=== PATIENT | male | born 1965 | race Caucasian/White ===

== ENCOUNTER 2018-03-21 13:49 | Inpatient (IN) ==
[2018-03-21 14:23] LABS: Baso # (Auto) 0.1 th/mm3 (0.0-0.2); Baso % (Auto) 0.7 % (0.0-2.0); Eos # (Auto) 0.1 th/mm3 (0.0-0.4); Eos % (Auto) 1.5 % (0.0-4.0); Hematocrit 42.4 % (39.0-51.0); Hemoglobin 14.1 gm/dL (13.0-17.0); Lymph # (Auto) 1.5 th/mm3 (1.0-4.8); Lymph % (Auto) 18.7 % (9.0-44.0); Mean Corpuscular HGB Conc 33.3 % (32.0-36.0); Mean Corpuscular Hemoglobin 29.8 pg (27.0-34.0); Mean Corpuscular Volume 89.5 fL (80.0-100.0); Mean Platelet Volume 8.4 fL (7.0-11.0); Mono # (Auto) 0.5 th/mm3 (0.0-0.9); Mono % (Auto) 6.3 % (0.0-8.0); Neut # (Auto) 5.6 th/mm3 (1.8-7.7); Neut % (Auto) 72.8 % (16.0-70.0); Platelet Count 237 th/mm3 (150-450); Red Blood Count 4.74 mil/mm3 (4.50-5.90); Red Cell Distribution Width 13.8 % (11.6-17.2); White Blood Count 7.8 th/mm3 (4.0-11.0)
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
[2018-03-21 14:32] LABS: Chloride 104 meq/L (98-107); Potassium 3.6 meq/L (3.5-5.1); Sodium 136 meq/L (136-145)
--- NOTE | 2018-03-21 14:32 | XR ---
EXAM DATE: 03/21/2018 2:29 PM EDT AGE/SEX: 52 years / Male INDICATIONS: Chest pain CLINICAL DATA: This is the patient's initial encounter. Patient reports that signs and symptoms have been present for > 1 year and indicates a pain score of 4/10. MEDICAL/SURGICAL HISTORY: . Cerebrovascular disease, Seizure. None. COMPARISON: No prior exams available for comparison. FINDINGS: A single AP erect portable view of the chest was obtained and demonstrates mild cardiomegaly. There a re no confluent infiltrates or effusions. There is no perihilar edema. The bony thorax is intact. The re are overlying electrocardiogram leads. CONCLUSION: Mild cardiomegaly with no evidence of pulmonary edema. Electronically signed by: Levar Ramírez MD 03/21/2018 2:31 PM EDT
[2018-03-21 14:35] LABS: Albumin 3.6 g/dL (3.4-5.0); Anion Gap 6 meq/L (5-15); Blood Urea Nitrogen 11 mg/dL (7-18); Calcium 8.7 mg/dL (8.5-10.1); Carbon Dioxide 26.2 meq/L (21.0-32.0); Glucose,Random 166 mg/dL (74-106)
[2018-03-21 14:38] LABS: Alanine Aminotransferase 45 U/L (12-78)
[2018-03-21 14:39] LABS: Aspartate Aminotransferase 24 U/L (15-37); Glomerular Filtration Rate 53 mL/min (>89)
[2018-03-21 14:40] LABS: Activated Partial Thrombo Time 27.9 sec (24.3-30.1); Prothrombin Time 10.6 sec (9.8-11.6); Total Protein 7.2 g/dL (6.4-8.2)
[2018-03-21 14:41] LABS: Alkaline Phosphatase 75 U/L (45-117)
[2018-03-21 14:49] LABS: D-Dimer 0.53 mg/L FEU (0.00-0.50)
[2018-03-21 14:50] LABS: Creatine Kinase 69 U/L (39-308)
--- NOTE | 2018-03-21 16:40 | CT ---
EXAM DATE: 03/21/2018 4:32 PM EDT AGE/SEX: 52 years / Male INDICATIONS: Short of breath. CLINICAL DATA: This is the patient's initial encounter. Patient reports that signs and symptoms have been present for 2 days and indicates a pain score of 0/10. MEDICAL/SURGICAL HISTORY: Hiatal hernia. Inguinal hernia. Seizure. Stroke. Carotid endarterectomy. RADIATION DOSE: 19.34 CTDI (mGy) COMPARISON: [facility], CHEST 1V SINGLE AP, 03/21/2018. . TECHNIQUE: Volumetric scanning was performed using a multi-row detector CT scanner during bolus infu jen of 65 ml Omnipaque 350 (iohexol) nonionic water-soluble contrast as a single exam dose. The domonique a was post processed with a variety of visualization algorithms including full volume maximum intensi ty projection and sliding thin slab reformation. Using automated exposure control and adjustment of t he mA and/or kV according to patient size, radiation dose was kept as low as reasonably achievable to obtain optimal diagnostic quality images. DICOM format image data is available electronically for r eview and comparison. FINDINGS: Pulmonary Arteries: No filling defects are seen in the pulmonary arteries out to the subsegmental ve ssels. The left and right pulmonary arteries are normal in diameter. Lung: There is minimal patchy opacity in the lateral right middle lobe best seen on axial image #41. There is a 7 mm groundglass nodule along the posterior lateral right fissure on image #46. There is a second smaller 5 to 6 mm nodule in the right lower lobe. There are no large areas of consolidation or larger masses.. Effusion: None. Mediastinum: No evidence of mediastinal or hilar adenopathy. Coronary artery calcifications are pres ent. Other: The axilla is unremarkable. CONCLUSION: 1. No evidence of pulmonary embolism. 2. 2 noncalcified pulmonary nodules. A six-month follow-up noncontrast chest CT is recommended accor ding to the guidelines. 3. Coronary artery calcifications. Electronically signed by: Levar Ramírez MD 03/21/2018 4:39 PM EDT
[2018-03-21] MEDS ORDERED: Heparin Drip 25,000 UNIT/250 ML BAG IV.CONT PRN (16:58)
--- NOTE | 2018-03-21 18:04 | ECG ---
Date Performed: 03/21/2018 Time Performed: 13:55:00 PTAGE: 52 years EKG: Sinus rhythm NONSPECIFIC ST & T-WAVE ABNORMALITY BORDERLINE ECG NO PREVIOUS TRACING DOCTOR: Luis Alfredo Metzger Interpretating Date/Time 03/21/2018 18:03:30
[2018-03-21 18:33] LABS: Troponin I 0.3 ng/mL (0.02-0.05)
--- NOTE | 2018-03-21 18:53 | P.HP ---
History of Present Illness Primary Care Physician: No Primary Care Physician History of Present Illness: This is a 52-year-old male with a history of CVA who presents to the hospital with chest pain. On and off for the last 2 weeks he has been having increasing shortness of breath and tightness in his neck with activities. Today at work he was asked to help unload a truck and had an acute onset of central chest pain with radiation to the neck combined with shortness of breath. He told his employer that he was unable to continue doing the work and he left work immediately to come to the ER. He has attempted to file for disability in the past for some residual left arm and leg weakness but has been denied. He is currently not having chest pain but is feeling somewhat anxious about losing his job and not being able to pay rent because of this hospitalization. Inpatient Certification: I certify that the inpatient services were ordered in accordance with Medicare regulations governing the order. This includes certification that hospital inpatient services are reasonable and necessary and in the case of services not specified as inpatient-only under 42 CFR 419.22(n), that they are appropriately provided as inpatient services in accordance to with the 2-midnight benchmark under 43 CFR 412.3(e) Estimated Total Length of Stay (Days): 3 Plans for Post Hospital Care: Home Review of Systems Constitutional: Denies anorexia, Denies body ache(s), Denies chills, Denies daytime sleepiness, Denies excessive sweating, Denies fatigue, Denies fever(s), Denies headache(s), Denies increased appetite, Denies lack of energy, Denies malaise, Denies night sweats, Denies weakness, Denies weight gain, Denies weight loss, Denies other Eyes: Denies blind spots, Denies blurry vision, Denies bulging eyes, Denies change in vision, Denies double vision, Denies discharge, Denies dry eyes, Denies floaters, Denies irritation, Denies itchy eyes, Denies loss of vision, Denies pain, Denies requires corrective lenses, Denies sensitivity to light, Denies other Ears, Nose, Mouth, and Throat: Denies abnormal hearing, Denies bleeding gums, Denies bad breath, Denies change in voice, Denies dental pain, Denies difficulty swallowing, Denies dizziness, Denies dry mouth, Denies ear discharge , Denies ear pain, Denies facial pain, Denies headache(s), Denies hearing loss, Denies hoarseness, Denies lip swelling, Denies nosebleed, Denies mouth lesions, Denies mouth pain, Denies nasal congestion, Denies nasal discharge, Denies nasal obstruction, Denies nasal trauma, Denies neck lump, Denies neck pain, Denies nose pain, Denies pain with swallowing, Denies poor balance, Denies post nasal drip, Denies ringing in the ears, Denies sinus pain, Denies sinus pressure , Denies sore throat, Denies throat swelling, Denies tongue swelling, Denies other Cardiovascular: Reports chest pain, Reports chest pain at rest, Reports chest pain with activity, Reports lightheadedness, Reports radiating jaw, neck or arm pain, Reports shortness of breath, Reports shortness of breath with activity, Reports shortness of breath when lying down, Reports shortness of breath causing sudden awakening, Denies irregular heart rhythm Respiratory: Denies change in phlegm color, Denies chest congestion, Denies cough, Denies coughing up blood, Denies excessive phlegm production, Denies pain on inspiration, Denies pain with cough, Denies shortness of breath, Denies shortness of breath with activity, Denies snoring, Denies stridor, Denies wheezing, Denies other Gastrointestinal: Denies abdominal pain, Denies belching, Denies black, tarry stools, Denies bloating, Denies bright, red blood in stools, Denies change in bowel habits, Denies constant urge to pass stool, Denies change in stools, Denies coffee ground vomit, Denies constipation, Denies cramping, Denies difficulty swallowing, Denies excessive passing of gas, Denies feeling full early, Denies heartburn, Denies incontinent of stools, Denies loose stools, Denies nausea, Denies pain with swallowing, Denies vomiting, Denies vomiting blood, Denies other Genitourinary: Denies blood in semen, Denies blood in urine, Denies decreased urination, Denies difficulty urinating, Denies difficulty with ejaculations, Denies erectile dysfunction, Denies genital lesions, Denies genital pain, Denies painful urination, Denies side pain, Denies frequent nighttime urination , Denies painful ejaculations, Denies penile discharge, Denies scrotal swelling , Denies testicle lump, Denies testicle pain, Denies urinary frequency, Denies urinary hesitancy, Denies urinary incontinence, Denies urinary urgency, Denies other Musculoskeletal: Denies abnormal walking, Denies back pain, Denies body aches, Denies decreased muscle mass, Denies deformity, Denies joint pain, Denies joint swelling, Denies limited joint movement, Denies loss of height, Denies muscle cramps, Denies muscle weakness, Denies neck pain, Denies numbness, Denies radiating pain into limb, Denies stiffness, Denies tingling, Denies other Skin/Breast: Denies acne, Denies bleeding lesions, Denies boil, Denies breast swelling, Denies breast skin changes, Denies breast pain, Denies breast lump, Denies change in breast shape, Denies change in hair, Denies change in skin color, Denies changing lesions, Denies dry skin, Denies excessive hair growth, Denies hair loss, Denies itching, Denies lesions, Denies nail changes, Denies new lesions, Denies nipple discharge, Denies non-healing lesions, Denies redness , Denies sensitivity to light, Denies rash, Denies skin pain, Denies skin ulcer , Denies sores, Denies stretch root, Denies unusual bruising, Denies wounds, Denies yellowing of the skin, Denies other Neurologic: Reports weakness, Denies abnormal hearing, Denies abnormal movements , Denies abnormal speech, Denies abnormal walking, Denies behavioral changes, Denies burning sensations, Denies confusion, Denies dizziness, Denies fainting, Denies frequent falls, Denies headache(s), Denies lack of coordination, Denies localized weakness, Denies loss of vision, Denies memory loss, Denies numbness, Denies other visual disturbances, Denies radiating pain, Denies restless legs, Denies convulsions, Denies seizure-like activity, Denies sensory deficit, Denies tingling, Denies tingling/numbness/burning sensations, Denies tremor(s), Denies unsteadiness, Denies other Psychiatric: Reports anxiety, Denies abnormal sleep pattern, Denies behavioral changes, Denies change in appetite, Denies change in sex drive, Denies confusion , Denies depression, Denies difficulty concentrating, Denies hearing things others do not hear, Denies hopelessness, Denies irritability, Denies lack of enjoyment, Denies memory loss, Denies mood swings, Denies panic attacks, Denies paranoia, Denies seeing things others do not see, Denies sensing things others do not sense, Denies tactile hallucinations, Denies thoughts of hurting/killing others, Denies thoughts of hurting/killing yourself, Denies other Endocrine: Denies cold intolerance, Denies excessive sweating, Denies flushing, Denies heat intolerance, Denies increased hunger, Denies increased thirst, Denies increased urination, Denies rapid, pounding, or irregular heartbeat, Denies other PMFSH - History History Provided By: Patient - Medical History Medical History: Medical History (Last Updated 03/21/18 @ 14:10 by Radha Preston RN) Asthma (Acute) Seizure (Acute) Inguinal hernia (Acute) Hiatal hernia (Acute) Stroke (Acute) - Surgical History Surgical History: Surgical History (Last Updated 03/21/18 @ 14:10 by Radha Preston RN) Status post carotid surgery (Acute) - Tobacco History Second Hand Smoke Exposure: Yes Tobacco Use In Past 30 Days: Yes Smoking Status: Current every day smoker Tobacco Type: Cigarettes - Alcohol History How Often Do You Have a Drink Containing Alcohol: 2 to 3 times a week - Substance Use History Substance History: No History of Abuse - Travel History Recent Travel in the [facility] Within the Last 8 Weeks: No Recent Travel Out of the Country Within the Last 8 Weeks: No - Immunization History Tetanus Immunization: <5 Years Hx Influenza Vaccine This Season: No Medications and Allergies Active Medications: Active Medications Acetaminophen (Tylenol) 650 mg PO Q4H PRN PRN Reason: HEADACHE OR TEMP > 101 F Al Hydroxide/Mg Hydroxide (Milk Of Magnesia Liq) 30 ml PO Q12H PRN PRN Reason: Mild Constipation Aspirin (Ecotrin) 325 mg PO DAILY STACY Atorvastatin Calcium (Lipitor) 10 mg PO HS STACY Bisacodyl (Dulcolax Supp) 10 mg RECTAL DAILY PRN PRN Reason: SEVERE CONSITIPATION Heparin Sodium/Dextrose (Heparin/D5w 25,000 U/250 Ml) 25,000 unit in 250 mls @ 0 mls/hr IV.CONT TITRATE PRN; Protocol PRN Reason: Per Protocol Last Admin: 03/21/18 17:41 Dose: 1,000 units/hr, 10 mls/hr Lactulose (Lactulose Liq) 30 ml PO DAILY PRN PRN Reason: SEVERE CONSITIPATION Metoprolol Tartrate (Lopressor) 12.5 mg PO BID STACY Nitroglycerin (Nitro-Bid 2% Oint) 0.5 inch TOPICAL Q6HR STACY Senna/Docusate Sodium (Sulma-Colace) 1 tab PO BID STACY Sennosides (Senokot) 17.2 mg PO Q12H PRN PRN Reason: Moderate Constipation Sodium Chloride (Ns Inj) 2 ml IV.FLUSH BID STACY Sodium Chloride (Ns Inj) 2 ml IV.FLUSH UNSCH PRN PRN Reason: FLUSH AFTER USING IV ACCESS Temazepam (Restoril) 15 mg PO HS PRN PRN Reason: INSOMNIA Allergies Allergy/AdvReac Type Severity Reaction Status Date / Time codeine AdvReac Vomiting Verified 03/15/18 20:32 Home Medications Medication Instructions Recorded Confirmed Type No Known Home Medications 03/15/18 03/15/18 History Exam Vital signs: Vital Signs 03/21/18 14:01 03/21/18 14:09 03/21/18 14:12 Temperature 97.9 F 97.9 F Pulse Rate 101 H 92 H Respiratory Rate 18 18 Blood Pressure 140/86 129/75 Pulse Oximetry 95 95 96 03/21/18 14:49 03/21/18 15:31 03/21/18 18:40 Temperature Pulse Rate 85 89 Respiratory Rate 18 18 Blood Pressure 126/87 129/95 H 149/93 H Pulse Oximetry 97 96 Intake & Output 03/20/18 03/21/18 03/21/18 18:59 06:59 18:59 Weight 89.358 kg Narrative: GENERAL: Alert and oriented 3, anxious SKIN: Warm and dry. HEAD: Atraumatic. Normocephalic. EYES: Pupils equal and round. No scleral icterus. No injection or drainage. ENT: No nasal bleeding or discharge. Mucous membranes pink and moist. NECK: Trachea midline. No JVD. CARDIOVASCULAR: Regular rate and rhythm. RESPIRATORY: No accessory muscle use. Clear to auscultation. Breath sounds equal bilaterally. GASTROINTESTINAL: Abdomen soft, non-tender, nondistended. Hepatic and splenic margins not palpable. MUSCULOSKELETAL: Extremities without clubbing, cyanosis, or edema. No obvious deformities. NEUROLOGICAL: Awake and alert. No obvious cranial nerve deficits. Mild left upper extremity lower extremity weakness. Five out of 5 muscle strength in the arms and legs. Normal speech. PSYCHIATRIC: Appropriate mood and affect; insight and judgment normal. Results - Labs CBC & Chem 7: 03/21/18 14:00 03/21/18 14:00 Labs: Laboratory Results - last 24 hr 03/21/18 03/21/18 03/21/18 14:00 14:00 14:00 CBC w Diff Auto diff final WBC 7.8 RBC 4.74 Hgb 14.1 Hct 42.4 MCV 89.5 MCH 29.8 MCHC 33.3 RDW 13.8 Plt Count 237 MPV 8.4 Neut % (Auto) 72.8 H Lymph % (Auto) 18.7 [place] % (Auto) 6.3 Eos % (Auto) 1.5 Baso % (Auto) 0.7 Neut # (Auto) 5.6 Lymph # (Auto) 1.5 [place] # (Auto) 0.5 Eos # (Auto) 0.1 Baso # (Auto) 0.1 WBC Differential . Differential Comment . PT 10.6 INR 1.0 APTT 27.9 D-Dimer Quant (PE/DVT) 0.53 H Sodium Potassium Chloride Carbon Dioxide Anion Gap BUN Creatinine Estimated GFR Random Glucose Calcium Total Bilirubin AST ALT Alkaline Phosphatase Total Creatine Kinase Troponin I 0.19 H Total Protein Albumin TSH 03/21/18 03/21/18 03/21/18 14:00 17:50 17:50 CBC w Diff WBC RBC Hgb Hct MCV MCH MCHC RDW Plt Count MPV Neut % (Auto) Lymph % (Auto) [place] % (Auto) Eos % (Auto) Baso % (Auto) Neut # (Auto) Lymph # (Auto) [place] # (Auto) Eos # (Auto) Baso # (Auto) WBC Differential Differential Comment PT INR APTT D-Dimer Quant (PE/DVT) Sodium 136 Potassium 3.6 Chloride 104 Carbon Dioxide 26.2 Anion Gap 6 BUN 11 Creatinine 1.40 H Estimated GFR 53 L Random Glucose 166 H Calcium 8.7 Total Bilirubin 0.5 AST 24 ALT 45 Alkaline Phosphatase 75 Total Creatine Kinase 69 67 Troponin I 0.30 H Total Protein 7.2 Albumin 3.6 TSH 3.930 H - Imaging Impressions Chest X-Ray 03/21/18 14:03 CONCLUSION: Mild cardiomegaly with no evidence of pulmonary edema. Chest CTA 03/21/18 15:17 CONCLUSION: 1. No evidence of pulmonary embolism. 2. 2 noncalcified pulmonary nodules. A six-month follow-up noncontrast chest CT is recommended according to the guidelines. 3. Coronary artery calcifications. Caprini VTE Risk Assessment Caprini VTE Risk Assessment: Moderate/High Risk (score >= 2) Caprini Risk Assessment Model: Point Value = 1 Point Value = 2 Point Value = 3 Point Value = 5 Age 41-60 Minor surgery BMI > 25 kg/m2 Swollen legs Varicose veins or History of unexplained or recurrent spontaneous Oral contraceptives or hormone replacement Sepsis (< 1 month) Serious lung disease, including pneumonia (< 1 month) Abnormal pulmonary function Acute myocardial infarction Congestive heart failure (< 1 month) History of inflammatory bowel disease Medical patient at bed rest Age 61-74 Arthroscopic surgery Major open surgery (> 45 min) Laparoscopic surgery (> 45 min) Malignancy Confined to bed (> 72 hours) Immobilizing plaster cast Central venous access Age >= 75 History of VTE Family history of VTE Factor V Leiden Prothrombin [id number] Lupus anticoagulant Anticardiolipin antibodies Elevated serum homocysteine Heparin-induced thrombocytopenia Other congenital or acquired thrombophilia Stroke (< 1 month) Elective arthroplasty Hip, pelvis, or leg fracture Acute spinal cord injury (< 1 month) Prophylaxis Regimen: Total Risk Factor Score Risk Level Prophylaxis Regimen 0-1 Low Early ambulation 2 Moderate Order ONE of the following: *Sequential Compression Device (SCD) *Heparin 5000 units SQ BID 3-4 Higher Order ONE of the following medications: *Heparin 5000 units SQ TID *Enoxaparin/Lovenox 40 mg SQ daily (WT < 150 kg, CrCl > 30 mL/min) *Enoxaparin/Lovenox 30 mg SQ daily (WT < 150 kg, CrCl > 10-29 mL/min) *Enoxaparin/Lovenox 30 mg SQ BID (WT < 150 kg, CrCl > 30 mL/min) AND/OR *Sequential Compression Device (SCD) 5 or more Highest Order ONE of the following medications: *Heparin 5000 units SQ TID (Preferred with Epidurals) *Enoxaparin/Lovenox 40 mg SQ daily (WT < 150 kg, CrCl > 30 mL/min) *Enoxaparin/Lovenox 30 mg SQ daily (WT < 150 kg, CrCl > 10-29 mL/min) *Enoxaparin/Lovenox 30 mg SQ BID (WT < 150 kg, CrCl > 30 mL/min) AND *Sequential Compression Device (SCD) Assessment and Plan - Plan NSTEMI Patient presents with central chest pain radiation to left neck combined with 2 weeks of worsening dyspnea with activity Troponins bumped to 0.30 ER physician discussed case with Dr. Thomas who recommended transferred to [facility] for likely cardiac catheterization Patient will be n.p.o. after midnight Continue with heparin drip Continue with oxygen as needed Continue with as needed nitroglycerin Follow on telemetry Appreciate cardiology consult h/o CVA Left upper and lower extremity weakness, mild in nature Weakness is exacerbated by possible ischemic heart disease h/o seizures Seizure precautions DVT prophylaxis Heparin drip
[2018-03-21] MEDS: ALPRAZolam 0.25 MG Tablet PO PRN (19:55)
[2018-03-21 19:57] LABS: Amphetamine Screen,Urine Neg (Neg)
[2018-03-21 19:59] LABS: Barbiturate Screen,Urine Neg (Neg)
[2018-03-21] MEDS ORDERED: Bisacodyl 10 MG Supp RECTAL PRN (20:00)
[2018-03-21 20:04] LABS: Cannabinoid Screen,Urine Neg (Neg); Cocaine Screen,Urine Pos (Neg)
[2018-03-21 20:09] LABS: Opiate Screen,Urine Neg (Neg)
[2018-03-21] MEDS: Metoprolol Tartrate 25 MG Tablet PO SCH (21:32)
[2018-03-21] MEDS: Senna/Docusate Sodium 8.6/50 MG Tablet PO SCH (21:32)
[2018-03-22 00:24] LABS: Troponin I 0.44 ng/mL (0.02-0.05)
[2018-03-22] MEDS: Temazepam 15 MG Capsule PO PRN ×2 (01:12→23:10)
[2018-03-22] MEDS ORDERED: Heparin 10,000 UNITS/10 ML Vial (for IV use) IV.PUSH PRN (02:00)
[2018-03-22] MEDS: Heparin 10,000 UNITS/10 ML Vial (for IV use) IV.PUSH PRN ×2 (02:15→11:41)
[2018-03-22 03:30] LABS: Chol/HDL Ratio 4.49 Ratio; HDL Cholesterol 38.5 mg/dL (40.0-60.0); Troponin I 0.39 ng/mL (0.02-0.05)
[2018-03-22] MEDS: Acetaminophen 325 MG Tablet PO PRN ×3 (06:36→16:12)
[2018-03-22] MEDS: ALPRAZolam 0.25 MG Tablet PO PRN ×3 (06:38→16:08)
[2018-03-22] MEDS ORDERED: Morphine Inj 4 MG/ML Vial IV.PUSH ONE (06:56)
[2018-03-22] MEDS: Senna/Docusate Sodium 8.6/50 MG Tablet PO SCH ×2 (08:41→20:47)
[2018-03-22] MEDS: Metoprolol Tartrate 25 MG Tablet PO SCH ×3 (08:58→20:55)
--- NOTE | 2018-03-22 09:41 | P.PNIM ---
Subjective Interval history: Patient sleeping this morning. States that he has not had a good night sleep. States that he is not having chest pains. Physical Exam Vital signs: Vital Signs 03/21/18 14:01 03/21/18 14:09 03/21/18 14:12 Temperature 97.9 F 97.9 F Pulse Rate 101 H 92 H Respiratory Rate 18 18 Blood Pressure 140/86 129/75 Pulse Oximetry 95 95 96 03/21/18 14:49 03/21/18 15:31 03/21/18 18:40 Temperature Pulse Rate 85 89 Respiratory Rate 18 18 Blood Pressure 126/87 129/95 H 149/93 H Pulse Oximetry 97 96 03/21/18 20:50 03/22/18 00:00 03/22/18 01:00 Temperature 97.9 F Pulse Rate 90 93 H 87 Respiratory Rate 18 16 Blood Pressure 139/83 126/83 Pulse Oximetry 99 95 03/22/18 02:00 03/22/18 03:00 03/22/18 03:15 Temperature 98 F Pulse Rate 79 83 79 Respiratory Rate 18 Blood Pressure 118/73 Pulse Oximetry 95 03/22/18 04:00 03/22/18 05:00 03/22/18 06:00 Temperature Pulse Rate 88 98 H 99 H Respiratory Rate Blood Pressure Pulse Oximetry 03/22/18 07:00 03/22/18 07:08 03/22/18 08:00 Temperature 97.4 F L Pulse Rate 96 H 96 H Respiratory Rate 18 18 Blood Pressure 113/73 Pulse Oximetry 94 L 03/22/18 08:55 03/22/18 09:00 Temperature Pulse Rate 98 H Respiratory Rate Blood Pressure Pulse Oximetry 96 Intake & Output 03/21/18 03/22/18 03/22/18 18:59 06:59 18:59 Intake Total 80 / 80 Output Total 650 / 650 Balance -570 / -570 Weight 89.358 kg 89.5 kg Intake: Oral 80 / 80 Output: Urine 500 / 500 Stool 150 / 150 Other: Date of Last Bowel Movement 03/22/18 Weight On Admission 89.358 kg Narrative: GENERAL: This is a well-nourished, well-developed patient, in no apparent distress. CARDIOVASCULAR: Regular rate and rhythm without murmurs, gallops, or rubs. RESPIRATORY: Clear to auscultation. Breath sounds equal bilaterally. No wheezes , rales, or rhonchi. GASTROINTESTINAL: Abdomen soft, non-tender, nondistended. Normal active bowel sounds MUSCULOSKELETAL: Extremities without clubbing, cyanosis, or edema. NEURO: Alert & Oriented x4 to person, place, time, situation. Moves all ext x4 Results - Labs CBC & Chem 7: 03/21/18 14:00 03/21/18 14:00 Laboratory Results - last 24 hr 03/21/18 03/21/18 03/21/18 14:00 14:00 14:00 CBC w Diff Auto diff final WBC 7.8 RBC 4.74 Hgb 14.1 Hct 42.4 MCV 89.5 MCH 29.8 MCHC 33.3 RDW 13.8 Plt Count 237 MPV 8.4 Neut % (Auto) 72.8 H Lymph % (Auto) 18.7 [place] % (Auto) 6.3 Eos % (Auto) 1.5 Baso % (Auto) 0.7 Neut # (Auto) 5.6 Lymph # (Auto) 1.5 [place] # (Auto) 0.5 Eos # (Auto) 0.1 Baso # (Auto) 0.1 WBC Differential . Differential Comment . PT 10.6 INR 1.0 APTT 27.9 D-Dimer Quant (PE/DVT) 0.53 H Sodium Potassium Chloride Carbon Dioxide Anion Gap BUN Creatinine Estimated GFR Random Glucose Calcium Total Bilirubin AST ALT Alkaline Phosphatase Total Creatine Kinase Troponin I 0.19 H Total Protein Albumin Triglycerides Cholesterol LDL Cholesterol, Calc HDL Cholesterol Cholesterol/HDL Ratio TSH Urine Opiates Screen Ur Barbiturates Screen Ur Amphetamines Screen U Benzodiazepines Scrn Urine Cocaine Screen U Cannabinoids Screen 03/21/18 03/21/18 03/21/18 14:00 17:50 17:50 CBC w Diff WBC RBC Hgb Hct MCV MCH MCHC RDW Plt Count MPV Neut % (Auto) Lymph % (Auto) [place] % (Auto) Eos % (Auto) Baso % (Auto) Neut # (Auto) Lymph # (Auto) [place] # (Auto) Eos # (Auto) Baso # (Auto) WBC Differential Differential Comment PT INR APTT D-Dimer Quant (PE/DVT) Sodium 136 Potassium 3.6 Chloride 104 Carbon Dioxide 26.2 Anion Gap 6 BUN 11 Creatinine 1.40 H Estimated GFR 53 L Random Glucose 166 H Calcium 8.7 Total Bilirubin 0.5 AST 24 ALT 45 Alkaline Phosphatase 75 Total Creatine Kinase 69 67 Troponin I 0.30 H Total Protein 7.2 Albumin 3.6 Triglycerides Cholesterol LDL Cholesterol, Calc HDL Cholesterol Cholesterol/HDL Ratio TSH 3.930 H Urine Opiates Screen Ur Barbiturates Screen Ur Amphetamines Screen U Benzodiazepines Scrn Urine Cocaine Screen U Cannabinoids Screen 03/21/18 03/21/18 03/21/18 19:30 23:39 23:39 CBC w Diff WBC RBC Hgb Hct MCV MCH MCHC RDW Plt Count MPV Neut % (Auto) Lymph % (Auto) [place] % (Auto) Eos % (Auto) Baso % (Auto) Neut # (Auto) Lymph # (Auto) [place] # (Auto) Eos # (Auto) Baso # (Auto) WBC Differential Differential Comment PT INR APTT 33.8 H D D-Dimer Quant (PE/DVT) Sodium Potassium Chloride Carbon Dioxide Anion Gap BUN Creatinine Estimated GFR Random Glucose Calcium Total Bilirubin AST ALT Alkaline Phosphatase Total Creatine Kinase 58 Troponin I 0.44 H Total Protein Albumin Triglycerides Cholesterol LDL Cholesterol, Calc HDL Cholesterol Cholesterol/HDL Ratio TSH Urine Opiates Screen Neg Ur Barbiturates Screen Neg Ur Amphetamines Screen Neg U Benzodiazepines Scrn Neg Urine Cocaine Screen Pos H U Cannabinoids Screen Neg 03/22/18 03/22/18 02:27 07:12 CBC w Diff WBC RBC Hgb Hct MCV MCH MCHC RDW Plt Count MPV Neut % (Auto) Lymph % (Auto) [place] % (Auto) Eos % (Auto) Baso % (Auto) Neut # (Auto) Lymph # (Auto) [place] # (Auto) Eos # (Auto) Baso # (Auto) WBC Differential Differential Comment PT INR APTT 36.2 H D-Dimer Quant (PE/DVT) Sodium Potassium Chloride Carbon Dioxide Anion Gap BUN Creatinine Estimated GFR Random Glucose Calcium Total Bilirubin AST ALT Alkaline Phosphatase Total Creatine Kinase 59 Troponin I 0.39 H Total Protein Albumin Triglycerides 224 H Cholesterol 173 LDL Cholesterol, Calc 90 HDL Cholesterol 38.5 L Cholesterol/HDL Ratio 4.49 TSH Urine Opiates Screen Ur Barbiturates Screen Ur Amphetamines Screen U Benzodiazepines Scrn Urine Cocaine Screen U Cannabinoids Screen - Imaging Impressions Chest X-Ray 03/21/18 14:03 CONCLUSION: Mild cardiomegaly with no evidence of pulmonary edema. Chest CTA 03/21/18 15:17 CONCLUSION: 1. No evidence of pulmonary embolism. 2. 2 noncalcified pulmonary nodules. A six-month follow-up noncontrast chest CT is recommended according to the guidelines. 3. Coronary artery calcifications. Assessment and Plan - Plan 1. NSTEMI Patient presents with central chest pain radiation to left neck combined with 2 weeks of worsening dyspnea with activity ER physician discussed case with Dr. Thomas who recommended transferred to [facility] for likely cardiac catheterization Patient is currently n.p.o. Continue with heparin drip Continue with oxygen as needed Continue with as needed nitroglycerin Follow on telemetry Appreciate cardiology consult 2. Chronic kidney disease stage IIImonitor on GFR and creatinine after cardiac catheterization. IV fluid hydration. Avoid nephrotoxins. 3. h/o CVA Left upper and lower extremity weakness, mild in nature Weakness is exacerbated by possible ischemic heart disease 4. h/o seizures Seizure precautions 5. DVT prophylaxis Heparin drip
[2018-03-22] MEDS ORDERED: fentaNYL Citrate Inj 100 MCG/2 ML Ampul ONE (12:15)
[2018-03-22] MEDS ORDERED: Heparin/NS PF Inj 1,500 ML ONE (12:15)
[2018-03-22] MEDS ORDERED: Adenosine Stress Test 90 MG/30 ML Vial IV.SIG ONE (12:44)
[2018-03-22] MEDS ORDERED: Heparin 10,000 UNITS/10 ML Vial (for IV use) ONE (13:16)
--- NOTE | 2018-03-22 14:08 | CATHPROC ---
[employer] HIS Report Study Information Study Number Admission Scheduled Start Study Start [id number] Mar 21 2018 5:12PM 03/22/2018 Mar 22 2018 12:10PM [facility] Cardiac Catheterization Admit Source Facility Department Emergency department [facility] - [employer] Physician and Clinical Staff Initial MD Thomas, Hesham [employer] Manageraquiles Dimas RN, Renzo Recorder Chet Aviles,RT(R) Scrub Maura rCuz ,RT(R) Scrub Student, NETWORK INTERN/RT(R) Procedures Performed Procedure Location (Site) Vessel Name Angiogram LV AO Arch (A1) Aorta Coronary Angiograms LCA Left Coronary Coronary Angiograms RCA Right Coronary IABP Fem Art (right) Femoral Art L Heart Cath LV Gram-hand inj. LV LV Ventricle Equipment Time Director Of Field Sales Description Size Mfg Part Number Used/Scraped TRANSDUCER, TRCENXAVE [id number] 12:19 RIVAS SIMMS * Used W/STOCKCOCK *[id number] [id number] *[id number] *[id number] *[id number] BALLOON, FR8 50CC SENSATION [id number] 13:05 MAQUET FR 8 50CC Used PLUS 01U *[id number] 12:19 [employer] BLANKET,WARM AIR CCL * Used *[id number] 12:19 [employer] PACK, CCL CUSTOM * Used *[id number] 12:19 [employer] PACER PEN, SKIN DUAL W/ RULER * Used *[id number] 12:19 [employer] WIRE, 3MMJ .035 180CM 180CM Used *[id number] TUBING, PRESSURE INJECTION [id number] 13:49 NAMIC 72" Used 72" *[id number] 12:19 [employer] OMNIPAQUE, 350 MG, 150ML 150ML [id number] Used 13:01 [employer] OMNIPAQUE, 350 MG, 50ML 50ML [id number] Used [id number] 12:19 [employer] MEDICAL SHEATH, FR4 TERUMO (10CM) FR 4 Used *[id number] History: Current Medications Medication Dosage/Unit Route Frequency Last Date/Time Taken LOPRESSOR ASA LIPITOR HEPARIN NTG Patch History: Allergies Allergy Reaction codeine Vomiting History: Risk Factors Family History of Hypertension Dyslipidemia Previous [place] Previous Heart Failure Premature CAD Yes Yes No No No Prior Valve Prior PCI Prior CABG Surgery No No No Cerebrovascular Peripheral Artery Chronic Lung On Dialysis Diabetes Disease Disease Disease No Yes No No No History: Risk Factors Selection Items Current Smoker History: Symptoms/Diagnosis Selection Items Chest pain SOB History: Stress Tests Stress or Imaging Studies Performed No History: Other Disease Selection Items HTN History: Other Current Smoker Method Packs a Day Years Used Pack Years Yes Cigarettes 1 40 40 Labs Hgb (g/dl) Hct (%) RBC (MIL/MM3) WBC (l/cumm) Platelets (thousands) 11.60-17.00 35.00-51.00 4.00-5.90 4.00-11.00 150.00-450.00 14.1 42.4 4.7 7.8 237 Glucose (mg/dl) BUN (mg/dl) Creatinine (mg/dl) BUN:Creatinine (1:x) 74.00-106.00 7.00-18.00 0.50-1.30 10.00-20.00 166 11 1.4 7.9 Na (meq/l) K (meq/l) Cl (meq/l) CO2 (mmol/L) Ca (mg/dl) 136.00-145.00 3.50-5.10 98.00-107.00 21.00-32.00 8.50-10.10 136 3.6 104 26.2 8.7 PT (sec) PTT (sec) INR (PTT:PT) 9.80-11.60 24.30-30.10 0.90-1.10 10.6 27.9 0.5 Troponin I (ng/ml) CPK (u/l) CPK-MB (ng/ML) 0.02-0.05 26.00-308.00 0.50-3.60 0.3 67 Not Drawn Medication Medication Total Dose (Bolus/Oral) Medication Total Dosage/Unit 1% XYLOCAINE 20 mL FENTANYL 25 mcg HEPARIN 6500 units NITRO OINTMENT 1 inches VERSED 1 mg Medications (Bolus/Oral) Medication Time Given Dosage/Unit Administered By Reason NITRO OINTMENT 03/22/2018 12:19:50 PM 1 inches Patient arrived on 1 inches NITRO OINTMENT in Right shoulder via Peripheral IV. VERSED 03/22/2018 12:52:06 PM 1 mg Renzo Dimas RN Patient arrived on 1 mg VERSED given by Renzo Dimas RN in Right Antecubital via Peripheral IV. FENTANYL 03/22/2018 12:52:07 PM 25 mcg Renzo Dimas RN Patient arrived on 25 mcg FENTANYL given by Renzo Dimas RN in Right Antecubital via Peripheral IV. 1% XYLOCAINE 03/22/2018 12:52:09 PM 20 mL Hesham Thomas 20 mL 1% XYLOCAINE given in lab by Hesham Thomas in Right Groin via Subcutaneous. HEPARIN 03/22/2018 1:08:56 PM 6500 units Renzo Dimas RN 6500 units HEPARIN given in lab by Renzo Dimas RN in Right Antecubital via Peripheral IV. Medication (Drip) Medication Time Given Dosage/Unit Concentration/Unit Diluent (ml) Solution IV Solutions 03/22/2018 12:18:02 PM 0 mL (IV) 500 NaCl .9 IV Solutions given in lab by Renzo Dimas RN in Right Antecubital via Peripheral IV. Pump/Drip Flow = 20 ml/hr using NaCl .9. Initial Case Assessment Cardiovascular HR Rhythm NIBP Chest Pain 96 Sinus 151/87 0 Edema Present Skin color Skin None Normal Warm Dry Circulatory - Right Pulses Dorsalis Pedis Femoral 2 2 Scale (0,1,2,3,4,d) Circulatory - Left Pulses Dorsalis Pedis Femoral 1 1 Scale (0,1,2,3,4,d) Neurological State Oriented to time-place- Alert Moves all extremities person Respiration - General Respiration Rate SpO2 (%) O2 (lpm) (B/min) 11 94 2 Chronological Log Time Study Chronological Log 12:14:37 Patient arrived via Bed. 12:14:38 Patient Name, D.O.B, / Armband Verified By R.N. 12:14:39 Consent signed by the physician and the patient and verified by the [employer] staff. 12:14:40 Pre-op and post- op instructions given; patient acknowledges understanding of instructions. 12:14:40 Verbal Stimulation=2 Physical Stimulation=2 Airway=2 Respiration=2 TOTAL=8. (0=absent, 1=li mited, 2=present) 12:14:42 Presedation assessment performed by [employer] RN. 12:16:39 Skin Breakdown- none per patient. 12:16:42 Patient Warmer Placed on the Table. 12:17:20 [place] Prominences Protected 12:17:21 A # 20 IV was noted in the Antecubital (right). Grade = 0 IV Solutions given in lab by Renzo Dimas RN in Right Antecubital via Peripheral IV. Pump/Drip Flow = 20 ml/hr using 12:18:02 NaCl .9. 12:18:33 History and physical on the chart or being dictated. Assessment: Initial Case, HR=96 BPM, Rhythm=Sinus, SKCD=414/87 mmhg, Chest Pain=0, Edema=None, Color=Normal, Skin = Warm, Dry Right Pulses: Kristian Ped=2, Femoral=2 12:18:37 Left Pulses: Kristian Ped=1, Femoral=1 Neurological: State=Alert, Ox3, COELLO Respiration: Resp=11 B/min, SpO2=94 %, O2=2 lpm 12:19:50 Patient arrived on 1 inches NITRO OINTMENT in Right shoulder via Peripheral IV. Vitals capture started with the following parameters, Patient=Adult, Interval=5 min, Initial Pr yuqkil=399 mmHg, 12:24:30 Deflation Rate=5 mmHg, Cuff placed on Left Arm 12:25:44 HR=96 bpm, KZZG=144/87 mmhg, SpO2=96.0 %, Resp=11 B/min, Pain=0, Demetrius=10, Jefferson=2 12:30:07 HR=92 bpm, BECB=280/85 mmhg, SpO2=95.0 %, Resp=35 B/min, Pain=0, Demetrius=10, Jefferson=2 12:32:06 Bilateral groins prepped with 2% chlorhexidine, and draped after a 3 minute waiting time. 12:33:50 Reference ECG taken 12:33:55 MD arrived. 12:35:38 HR=91 bpm, THXY=329/80 mmhg, SpO2=95.0 %, Resp=31 B/min, Pain=0, Demetrius=10, Jefferson=2 12:39:51 Pressure channel 1 zeroed. 12:40:03 HR=91 bpm, SPNG=874/84 mmhg, SpO2=96.0 %, Resp=37 B/min, Pain=0, Demetrius=10, Jefferson=2 12:45:02 HR=86 bpm, AIZJ=179/84 mmhg, SpO2=97.0 %, Resp=31 B/min, Pain=0, Demetrius=10, Jefferson=2 12:46:16 MD paged 12:50:03 HR=88 bpm, KFVP=749/73 mmhg, SpO2=97.0 %, Resp=14 B/min, Pain=0, Demetrius=10, Jefferson=2 12:50:49 MD arrived. Time Out. Correct patient, correct procedure, correct physician, labs, allergies, and equipment verified with geotechnical laboratory technician 12:51:56 team present. Fire risk assesment completed (see hard stop sheet for coding). Time Out Conc urred by MD and individual staff in procedure. 12:52:06 Patient arrived on 1 mg VERSED given by Renzo Dimas RN in Right Antecubital via Peripheral IV. 12:52:07 Patient arrived on 25 mcg FENTANYL given by Renzo Dimas RN in Right Antecubital via Periph eral IV. 12:52:08 Case Start 12:52:09 20 mL 1% XYLOCAINE given in lab by Hesham Thomas in Right Groin via Subcutaneous. 12:53:42 Access site was Right Femoral Artery. 12:53:52 A SHEATH, FR4 TERUMO (10CM) FR 4 was advanced into the Fem Art (right) using the Percutaneo us technique. 12:54:19 Activated Clotting Time Drawn 12:55:04 HR=87 bpm, YDBJ=723/80 mmhg, SpO2=94.0 %, Resp=35 B/min, Pain=0, Demetrius=10, Jefferson=2 A JR 4.0 INFINITI CATHETER FR 4 was advanced over a wire. OMNIPAQUE, 350 MG, 150ML 150ML was us ed for 12:55:11 injections. 12:55:49 The LV was manually injected with 8 cc's and visualized. OMNIPAQUE, 350 MG, 150ML 150ML use d. Recorded Pressure: LV, HR=92, Condition=Condition 1 12:56:06 (Left Ventricle) LV 106/11/30 Recorded Pressure: LV, Ao, HR=89, Condition=Condition 1 12:56:13 (Left Ventricle) LV 107/10/28, (Aorta) Ao 104/67/82 12:56:55 The RCA was injected and visualized at various angles. OMNIPAQUE, 350 MG, 150ML 150ML used . 12:57:06 Catheter was removed 12:57:31 ACT (Normal Range 90-180) = 175 A JL 4.0 INFINITI CATHETER FR 4 was advanced over a wire. OMNIPAQUE, 350 MG, 150ML 150ML was us ed for 12:57:45 injections. Recorded Pressure: Ao, HR=93, Condition=Condition 1 12:58:05 (Aorta) Ao 104/69/84 12:58:13 The LCA was injected and visualized at various angles. OMNIPAQUE, 350 MG, 150ML 150ML used . 13:00:03 HR=93 bpm, ZBSV=746/80 mmhg, SpO2=95.0 %, Resp=34 B/min, Pain=0, Demetrius=10, Jefferson=2 13:00:06 Catheter was removed 13:00:14 An injection in the Fem Art (right) was made through the SHEATH, FR4 TERUMO (10CM) FR 4. A PIGTAIL ANG. INFINITI CATHETER FR 4 was advanced over a wire. OMNIPAQUE, 350 MG, 50ML 50ML wa s used for 13:01:01 injections. 13:03:23 The AO Arch (A1) was injected at 10 cc/sec for a total of 20. OMNIPAQUE, 350 MG, 50ML 50ML used. 13:04:16 Catheter was removed 13:05:04 HR=91 bpm, QIDZ=781/81 mmhg, SpO2=98.0 %, Resp=35 B/min, Pain=0, Demetrius=10, Jefferson=2 13:08:56 6500 units HEPARIN given in lab by Renzo Dimas RN in Right Antecubital via Peripheral IV. 13:10:03 HR=89 bpm, VCMY=557/89 mmhg, SpO2=97.0 %, Resp=26 B/min, Pain=0, Demetrius=10, Jefferson=2 13:10:16 Sheath exchanged for intra-aortic balloon insertion. An BALLOON, FR8 50CC SENSATION PLUS FR 8 50CC was advanced to the descending aorta. Proper plac ement was 13:11:00 confired under fluoroscopy and the balloon was sutured in place. Ratio = ~RATIO~. Augmented BP ~SYS~/~JUNITO~ 13:12:06 Case End (Physician broke scrub) 13:15:08 HR=86 bpm, CLTK=786/73 mmhg, SpO2=97.0 %, Resp=30 B/min, Pain=0, Demetrius=10, Jefferson=2 13:15:29 No case complications noted. In the Fem Art (right) the SHEATH, FR4 TERUMO (10CM) FR [address] by Mason Thomas. Balloon 13:15:32 pump sheath 13:17:08 Sterile dressing applied to site 13:17:13 Cine recording checked. 13:17:25 A Left Heart Cath was performed. 13:20:42 HR=80 bpm, RMWN=179/61 mmhg, SpO2=98.0 %, Resp=26 B/min, Pain=0, Demetrius=10, Jefferson=2 13:25:04 HR=78 bpm, YPOE=569/74 mmhg, SpO2=98.0 %, Resp=31 B/min, Pain=0, Demetrius=10, Jefferson=2 13:30:38 HR=80 bpm, VROD=445/86 mmhg, SpO2=99.0 %, Resp=27 B/min, Pain=0, Demetrius=10, Jefferson=2 13:35:08 HR=82 bpm, BJDO=736/91 mmhg, SpO2=99.0 %, Resp=24 B/min, Pain=0, Demetrius=10, Jefferson=2 13:40:11 HR=74 bpm, EHJL=214/99 mmhg, SpO2=99.0 %, Resp=32 B/min, Pain=0, Demetrius=10, Jefferson=2 13:45:06 HR=78 bpm, BKNA=342/98 mmhg, SpO2=99.0 %, Resp=32 B/min, Pain=0, Demetrius=10, Jefferson=2 13:48:38 waiting on room assignment. 13:50:14 HR=78 bpm, MIIP=648/79 mmhg, WxJ3=236.0 %, Resp=32 B/min 13:55:13 HR=81 bpm, HTGY=218/93 mmhg, DpJ1=709.0 %, Resp=29 B/min, Pain=0, Demetrius=10, Jefferson=2 13:59:55 Vitals capture stopped. 14:06:28 Bedside Report will be given. End Study - Contrast Media Used In Study Contrast Total Opened (mL) Total Used (mL) Total Wasted (mL) Omnipaque 200 60 140 End Study - Maximum Contrast Load Max Contrast Load (mL) 319.6 End Study - Radiation Exposure Fluoro Time (minutes) 2.1 End Study - Patient Disposition Complications Transferred To Interventional Outcome No Critical Care Bed No attempt made
[2018-03-22] MEDS ORDERED: Dextrose 50% in Water 50 ML Vial IV.PUSH PRN (14:30)
[2018-03-22] MEDS ORDERED: Sodium Chloride 0.9% Irr Bot 500 ML, ceFAZolin Inj 500 MG IRRIGATION SCH ×2 (14:30)
[2018-03-22] MEDS ORDERED: Insulin Regular (For Infusion) 100 UNIT in Sodium Chlor 0.9% Inj 99 ML IV.CONT PRN (14:30)
[2018-03-22] MEDS ORDERED: Chlorhexidine 4% Topical 120 APPLIC/120 ML Bottle TOPICAL SCH (14:30)
[2018-03-22] MEDS ORDERED: Sodium Chlor 0.9% Inj 57.5 ML, Papaverine Inj 60 MG, Nitroglycerin Inj 100 MCG, Verapam... IRRIGATION SCH ×3 (14:30)
--- NOTE | 2018-03-22 14:40 | P.PNCV ---
- Note Subjective/Hospital Course: pt has been seen and evaluated , full consult to follow sts data discussed with pt RISK SCORES About the STS Risk Calculator Procedure: CAB Only Risk of Mortality: 4.508% Morbidity or Mortality: 47.306% Long Length of Stay: 19.59% Short Length of Stay: 19.435% Permanent Stroke: 2.539% Prolonged Ventilation: 47.797% DSW Infection: 0.828% Renal Failure: 9.672% Reoperation: 13.356% Objective: Vital Signs - 24 hr 03/21/18 14:49 03/21/18 15:31 03/21/18 18:40 Temperature Pulse Rate 85 89 Respiratory Rate 18 18 Blood Pressure 126/87 129/95 H 149/93 H Pulse Oximetry 97 96 03/21/18 20:50 03/22/18 00:00 03/22/18 01:00 Temperature 97.9 F Pulse Rate 90 93 H 87 Respiratory Rate 18 16 Blood Pressure 139/83 126/83 Pulse Oximetry 99 95 03/22/18 02:00 03/22/18 03:00 03/22/18 03:15 Temperature 98 F Pulse Rate 79 83 79 Respiratory Rate 18 Blood Pressure 118/73 Pulse Oximetry 95 03/22/18 04:00 03/22/18 05:00 03/22/18 06:00 Temperature Pulse Rate 88 98 H 99 H Respiratory Rate Blood Pressure Pulse Oximetry 03/22/18 07:00 03/22/18 07:08 03/22/18 08:00 Temperature 97.4 F L Pulse Rate 96 H 96 H Respiratory Rate 18 18 Blood Pressure 113/73 Pulse Oximetry 94 L 03/22/18 08:55 03/22/18 09:00 03/22/18 10:00 Temperature Pulse Rate 98 H 96 H Respiratory Rate Blood Pressure Pulse Oximetry 96 03/22/18 11:00 Temperature 97.7 F Pulse Rate 91 H Respiratory Rate 18 Blood Pressure 158/73 H Pulse Oximetry 98 Labs: Laboratory Results - last 12 hr 03/22/18 03/22/18 02:27 07:12 APTT 36.2 H Total Creatine Kinase 59 Troponin I 0.39 H Triglycerides 224 H Cholesterol 173 LDL Cholesterol, Calc 90 HDL Cholesterol 38.5 L Cholesterol/HDL Ratio 4.49 Result Diagrams: 03/21/18 14:00 03/21/18 14:00
[2018-03-22] MEDS ORDERED: ceFAZolin Inj 2,000 MG in Sodium Chlor 0.9% Inj 80 ML IV.SIG SCH (15:00)
--- NOTE | 2018-03-22 15:10 | ECG ---
Date Performed: 03/22/2018 Time Performed: 11:13:34 PTAGE: 52 years EKG: Sinus rhythm . Nonspecific ST and T wave abnormalities Abnormal ECG No significant change from prior electrocardio gram. PREVIOUS TRACING : 03/21/2018 19.54 DOCTOR: Melvin Molina Interpretating Date/Time 03/22/2018 15:09:05
[2018-03-22] MEDS ORDERED: ceFAZolin 2 GM Premix Inj 2 GM/50 ML PIGGYBACK IV.SIG SCH (15:30)
--- NOTE | 2018-03-22 16:10 | MR ---
cc: Hesham Thomas MD DATE: 03/22/2018 PROCEDURE PERFORMED: Left heart catheterization, left ventriculography, coronary angiography, aortic root angiography, right angiography, intraaortic balloon pump placement. INDICATION: Coronary disease, decompensated congestive heart failure, respiratory failure, severe left main and 3-vessel coronary artery disease. PROCEDURE IN DETAIL: The patient was brought to the cardiac catheterization laboratory, prepped and draped in the usual sterile fashion. 10 mL of 1% lidocaine was used to locally anesthetize the right common femoral artery. 4-Romansh JR4 and JL4 catheters and pigtail catheters were used to perform left and right coronary angiography, left ventriculography, aortic root angiography, and right common femoral angiography. FINDINGS: The LV pressure is 110/15-17. Ejection fraction is 25-30%. The posterior wall inferior wall is severely hypokinetic. Anterior wall has the best preserved wall motion. The ventricle appears to be at least mild to moderately dilated. Fluoroscopically, the right coronary artery is nondominant and has a 90% proximal stenosis. It is subtotally occluded in the midsegment with MAKAYLA 1-2 flow into a distal 1 mm vessel. Left main coronary artery is calcified fluoroscopically. It is at least 60% stenotic in the cranial view. The LAD has an ostial 95% proximal stenosis, has 80% mid stenosis. Target in the distal vessel appears to be approximately 2.5 mm. It is a transapical vessel. The first diagonal artery has an ostial 80% stenosis at its proximal bifurcation. The medial branch has a long 90% stenosis. There is a 2.25 mm reference vessel diameter for lateral branch is a 2.5 mm reference vessel diameter. No significant disease angiographically. The left circumflex vessel is a dominant vessel with a 95% proximal mid stenosis. The first obtuse marginal vessel was a medium to large sized vessel. Reference vessel diameter of 2.75-3 mm. There is a long 60% proximal mid stenosis. The mid AV groove left circumflex has a 90% stenosis. Obtuse marginal vessel just beyond this is a large vessel, 3-3.5 mm, with a proximal 50-60% stenosis. The left PDA has mild diffuse disease up to 20% angiographically. Aortic root angiography shows no significant aortic valve regurgitation. Right common femoral artery angiography reveals sheath placement in the mid common femoral artery with no significant obstructive disease. Aortic root angiography, again, reveals no aortic valve regurgitation. Upper limit of normal to mildly dilated aortic root. CONCLUSION: 1. Hrp-CZ-mervzlrzj myocardial infarction, culprit severe left main and 3-vessel coronary artery disease as detailed above. 2. Severe left ventricular systolic dysfunction, EF 30%. 3. Mildly enlarged left aortic root. 4. Normal-appearing right common femoral artery. 5. Successful intraaortic balloon pump placement set at one-to-one. 6. Recommend heparin bolus and drip. 7. Recommend 2-D echo, carotid ultrasound. Preoperative CABG. I have reviewed the films with Dr. Tai Santiago, who agrees that the patient needs CABG. The patient is currently not having chest pain, but is requiring oxygen by facemask. LVEDP is 17, suggesting that this does not appear to be cardiogenic. RECOMMENDATION: The patient will be admitted to CV ICU. MD JAIRO Mendes/garland/pardeep , 01:21 PM , 01:31 PM
[2018-03-22] MEDS ORDERED: Heparin Drip 25,000 UNIT/250 ML BAG IV.CONT PRN (16:20)
[2018-03-22] MEDS ORDERED: Heparin 10,000 UNITS/10 ML Vial (for IV use) IV.PUSH STA (16:20)
--- NOTE | 2018-03-22 16:29 | ECHRPT ---
Indication: CHEST PAIN CONCLUSIONS Normal left ventricular size. Mild concentric left ventricular hypertrophy. The left ventricular systolic function is moderately to severely reduced with an estimated ejection fraction in the range of 30-35%. There is diffuse global hypokinesis. Mild mitral valve regurgitation. There is trace tricuspid valve regurgitation. BP: / HR: Rhythm: Sinus MEASUREMENTS (Male / Female) Normal Values Technical Quality:Fair 2D ECHO LV Diastolic Diameter PLAX 6.0 cm 4.2 - 5.9 / 3.9 - 5.3 cm LV Systolic Diameter PLAX 5.2 cm IVS Diastolic Thickness 1.1 cm 0.6 - 1.0 / 0.6 - 0.9 cm LVPW Diastolic Thickness 1.1 cm 0.6 - 1.0 / 0.6 - 0.9 cm LV Relative Wall Thickness 0.4 RV Internal Dim ED PLAX 2.5 cm LVOT Diameter 2.3 cm Aortic Root Diameter 3.5 cm LA Systolic Diameter LX 3.9 cm 3.0 - 4.0 / 2.7 - 3.8 cm M-MODE AV Cusp Separation MM 2.1 cm DOPPLER AV Peak Velocity 113.0 cm/s AV Peak Gradient 5.1 mmHg AV Mean Gradient 3.0 mmHg AV Velocity Time Integral 16.4 cm LVOT Peak Velocity 75.2 cm/s LVOT Peak Gradient 2.3 mmHg LVOT Velocity Time Integral 10.0 cm AV Area Cont Eq vti 2.5 cm AV Area Cont Eq pk 2.8 cm Mitral E Point Velocity 64.7 cm/s Mitral A Point Velocity 54.3 cm/s Mitral E to A Ratio 1.2 LV E' Lateral Velocity 7.5 cm/s Mitral E to LV E' Lateral Ratio 8.6 LV E' Septal Velocity 5.8 cm/s Mitral E to LV E' Septal Ratio 11.3 PV Peak Velocity 47.4 cm/s PV Peak Gradient 0.9 mmHg FINDINGS LEFT VENTRICLE Normal left ventricular size. Mild concentric left ventricular hypertrophy. The left ventricular systolic function is moderately to severely reduced with an estimated ejection fraction in the range of 30-35%. There is diffuse global hypokinesis. RIGHT VENTRICLE Normal right ventricular size and systolic function. LEFT ATRIUM The left atrial size is normal. RIGHT ATRIUM The right atrial size is normal. ATRIAL SEPTUM No atrial level shunt is demonstrated by color flow Doppler interrogation. AORTA The aortic root and proximal ascending aorta are normal in size on limited imaging. MITRAL VALVE Mild mitral valve regurgitation. AORTIC VALVE Trileaflet aortic valve. No aortic valve stenosis or regurgitation. TRICUSPID VALVE There is trace tricuspid valve regurgitation. PULMONARY VALVE No pulmonary valve regurgitation or stenosis. VESSELS The inferior vena cava is normal in size. PERICARDIUM No pericardial effusion. Luis Alfredo Metzger MD, FACC (Electronically Signed) Final Date:22 March 2018 16:28
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
--- NOTE | 2018-03-22 17:25 | US ---
EXAM DATE: 03/22/2018 5:02 PM EDT AGE/SEX: 52 years / Male INDICATIONS: Pre-operative cardiac. CLINICAL DATA: This is the patient's initial encounter. Patient reports that signs and symptoms have been present for 1 day and indicates a pain score of 0/10. MEDICAL/SURGICAL HISTORY: Asthma. Hiatal hernia. Seizure. Stroke. Occlusion of right carotid a rtery. Hyperlipidemia. . Left carotid endarterectomy. COMPARISON: No prior exams available for comparison. TECHNIQUE: Venous ultrasound of both lower extremities was performed from the inguinal ligament to t he proximal calf. Real-time, color Doppler and spectral tracing, compression and augmentation techni ques were used. FINDINGS: Right Leg: Normal compression of the deep venous system from the inguinal region to the proximal prasad f. No echogenic clot is seen. Normal response of the venous system to augmentation and respiration. Left Leg: Normal compression of the deep venous system from the inguinal region to the proximal calf . No echogenic clot is seen. Normal response of the venous system to augmentation and respiration. Other: None. CONCLUSION: 1. Negative examination with no evidence of deep venous thrombosis. Electronically signed by: Levar Ramírez MD 03/22/2018 5:24 PM EDT
--- NOTE | 2018-03-22 17:26 | US ---
EXAM DATE: 03/22/2018 5:04 PM EDT AGE/SEX: 52 years / Male INDICATIONS: Pre-operative cardiac. CLINICAL DATA: This is the patient's initial encounter. Patient reports that signs and symptoms have been present for 1 day and indicates a pain score of 0/10. MEDICAL/SURGICAL HISTORY: Asthma. Hiatal hernia. Seizure. Stroke. Occlusion of right carotid a rtery. Hyperlipidemia. . Left carotid endarterectomy COMPARISON: . MEASUREMENTS: RIGHT THIGH: Proximal:__3 mm Mid:__ 3 mm Distal:__3 mm LEFT THIGH: Proximal:__3 mm Mid:__1 mm Distal:__3 mm RIGHT CALF: Proximal:__2 mm Mid:__Non-visualized Distal:__Non-visualized LEFT CALF: Proximal:__3 mm Mid:__Non-visualized Distal:__Non-visualized FINDINGS: The venous system of the lower extremities are patent by color Doppler imaging. Measurements of the leg veins (in mm) are listed above. 1. Venous mapping study as described. Electronically signed by: Levar Ramírez MD 03/22/2018 5:24 PM EDT
--- NOTE | 2018-03-22 17:36 | US ---
EXAM DATE: 03/22/2018 4:59 PM EDT AGE/SEX: 52 years / Male INDICATIONS: Pre-operative cardiac. CLINICAL DATA: This is the patient's initial encounter. Patient reports that signs and symptoms have been present for 1 day and indicates a pain score of 0/10. MEDICAL/SURGICAL HISTORY: Asthma. Hiatal hernia. Seizure. Stroke. Occlusion of right carotid a rtery. Hyperlipidemia. . Left carotid endarterectomy. COMPARISON: No prior exams available for comparison. VELOCITY PARAMETERS: ICA/CCA Ratio: Right 0.5 , Left 0.8 ICA: Right 0 cm/sec, Left 69 cm/sec CCA: Right 56 cm/sec, Left 85 cm/sec ECA: Right 63 cm/sec, Left 63 cm/sec Vertebral: Right . cm/sec absent, Left 82 cm/sec antegrade FINDINGS: Study is suboptimal due to patient breathing and motion. Right Carotid: Significant arteriosclerotic plaque is visualized. No arterial waveform could be iden tified in portions of the mid and distal internal carotid artery. Left Carotid: Mild arteriosclerotic plaque is visualized. The waveforms are within normal limits. Other: None. CONCLUSION: 1. Significant plaque in the right carotid system with apparent occlusion of the mid and distal inte rnal carotid artery. 2. Nonvisualization of the right vertebral artery consistent with occlusion. 3. Further evaluation with MR angiography or CT angiography would be recommended. Electronically signed by: Levar Ramírez MD 03/22/2018 5:35 PM EDT
[2018-03-22] MEDS ORDERED: Iohexol 350 MG/ML 100 ML Vial (for Cath Lab) IVCONTRAST ONE (17:49)
[2018-03-22] MEDS: Mupirocin 2% Nasal Oint Topical Syringe EACH NARE SCH ×2 (18:09→20:55)
--- NOTE | 2018-03-22 18:23 | MB ---
cc: Susy Soto DATE: 03/22/2018 HISTORY OF PRESENT ILLNESS: A 52-year-old male transferred from [place] emergency department, who presented with chest pain after he was trying to unload a truck and had some acute central chest pain radiating to his neck with some shortness of breath. He was worked up in the emergency department and was found to have elevated troponins for a non-STEMI. He was transferred to the [facility]. He underwent cardiac catheterization today by Dr. Thomas which showed an ejection fraction of 25%, left main disease of 60% proximal LAD 95%, mid distal LAD 80%, circumflex was 95, the RCA 95. Intraaortic balloon pump was placed due to class IV CHF and his low ejection fraction. We were consulted for emergent coronary artery bypass graft. The patient's past medical history includes carotid artery disease. He has had a recent left carotid endarterectomy 08/2017 at [facility]. He is not sure of the surgeon. He also has a history of asthma, seizure disorder, hiatal hernia, history of a recent CVA. Apparently, he has also been trying to apply for disability, due to residual left arm and left weakness, but has been denied. PAST SURGICAL HISTORY: Left carotid endarterectomy 08/2017. Other surgeries include a hiatal hernia repair, right inguinal hernia repair, pilonidal cyst removal. ALLERGIES: CODEINE. MEDICATIONS: No medications listed. FAMILY HISTORY: Father still alive, history of coronary disease with stents. Mother from pancreatic cancer. SOCIAL HISTORY: The patient lives in [place], has a roommate. Has a daughter in [place] who I spoke with, Raina Briceño, and updated her. He has another daughter that lives in the [facility]. He has been smoking 1 pack for 30 years. He drinks 2-3 rum and Cokes per day. He does admit to using snorting cocaine approximately once a month. His urine drug screen was positive. He denies any IV drug use. REVIEW OF SYSTEMS: GENERAL: No night sweats, fever, heat and cold intolerance. SKIN: No psoriasis, itching or hives. HEENT: No blurred vision, hearing loss. RESPIRATORY: Positive for recent shortness of breath. CARDIOVASCULAR: As above in the HPI. GASTROINTESTINAL: No diarrhea or vomiting. GENITOURINARY: No burning, frequency, urgency. CENTRAL NERVOUS SYSTEM: History of cerebrovascular accident. ENDOCRINOLOGY: No history of diabetes. PHYSICAL EXAMINATION: VITAL SIGNS: Blood pressure 158/70, heart rate of 90, temperature max 97.7. GENERAL: The patient is awake, alert, in no acute distress. HEENT: Head is normocephalic, atraumatic. Pupils equal and reactive. Oral mucosa pink, moist. NECK: Supple. No JVD. HEART: Sounds S1, S2, with soft systolic murmur. LUNGS: Clear to auscultation. No wheezes, rales or rhonchi. ABDOMEN: Soft, nontender. No masses or organomegaly. EXTREMITIES: Reveal no cyanosis, clubbing, or edema. He does have an intraaortic balloon pump in the right groin with a 1:1 augmentation. LABORATORY DATA: Shows hemoglobin 14, hematocrit 42, white cell count of 7.8, platelet count of 237. Sodium 136, potassium 3.6, BUN of 11, creatinine 1.40. Troponin 0.39, 0.44, triglycerides 224, cholesterol 173, HDL of 38. TSH is 3.9, glucose 166. INR 1.0. The patient did have a chest CTA which was no evidence of pulmonary emboli. He had 2 noncalcified pulmonary nodules lateral right middle lobe, with 7 mm ground glass nodule, and a smaller 5-6 mm nodule in the right lower lobe. Recommendation 6-month followup. IMPRESSION: This is a 52-year-old non-STEMI with ejection fraction of 25%, multivessel coronary artery disease, status post intraaortic balloon pump placement. The coronary films have been evaluated by Dr. Tai Santiago. Plan is for emergent heart surgery in the a.m. Full workup is, in the meantime, pending. He is maintained on heparin drip, also aspirin and statin. I did discuss the plan with his daughter, Raina. The patient is agreeable to proceed. STS data: Risk of mortality 4.5. At this time, plan for surgery in the a.m. GABRIEL Chamorro MD JRT/he/dann , 02:48 PM , 03:01 PM
--- NOTE | 2018-03-22 18:55 | ECG ---
Date Performed: 03/21/2018 Time Performed: 19:54:21 PTAGE: 52 years EKG: Sinus rhythm NONSPECIFIC ST & T-WAVE ABNORMALITY BORDERLINE ECG PREVIOUS TRACING : 03/21/2018 13.55 Since the previous tracing, no significant change noted DOCTOR: Luis Alfredo Metzger Interpretating Date/Time 03/22/2018 18:52:47
[2018-03-22] MEDS ORDERED: Morphine Sulfate Inj 2 MG/ML Vial ONE (19:54)
[2018-03-22] MEDS: Morphine Inj 4 MG/ML Vial IV.PUSH PRN ×2 (20:15→23:11)
[2018-03-22 22:07] LABS: Bilirubin,Urine Negative (Negative); Clarity,Urine Clear (Clear); Color,Urine Yellow (Yellw/Straw); Glucose,Urine (UA) Negative (Negative); Leukocyte Esterase,Urine Negative (Negative); Nitrite,Urine Negative (Negative); Specific Gravity,Urine 1.034 (1.002-1.035); Urobilinogen,Urine 4 or Greater mg/dL (Less than 2)
[2018-03-22 22:19] LABS: Hematocrit 40.6 % (39.0-51.0); Hemoglobin 13.9 gm/dL (13.0-17.0); Mean Corpuscular HGB Conc 34.3 % (32.0-36.0); Mean Corpuscular Hemoglobin 29.7 pg (27.0-34.0); Mean Corpuscular Volume 86.6 fL (80.0-100.0); Mean Platelet Volume 8.8 fL (7.0-11.0); Platelet Count 205 th/mm3 (150-450); Red Blood Count 4.69 mil/mm3 (4.50-5.90); Red Cell Distribution Width 15.2 % (11.6-17.2); White Blood Count 9.4 th/mm3 (4.0-11.0)
[2018-03-22 22:41] LABS: Activated Partial Thrombo Time 39.7 sec (24.3-30.1); INR 1.1 Ratio
[2018-03-22 22:43] LABS: Albumin 3.3 g/dL (3.4-5.0); Anion Gap 9 meq/L (5-15); Aspartate Aminotransferase 18 U/L (15-37); Blood Urea Nitrogen 10 mg/dL (7-18); Calcium 8.9 mg/dL (8.5-10.1); Carbon Dioxide 26.2 meq/L (21.0-32.0); Chloride 102 meq/L (98-107); Glomerular Filtration Rate 53 mL/min (>89); Glucose,Random 111 mg/dL (74-106); Potassium 3.7 meq/L (3.5-5.1); Sodium 137 meq/L (136-145)
[2018-03-22 22:47] LABS: Alanine Aminotransferase 35 U/L (12-78); Alkaline Phosphatase 71 U/L (45-117); Total Protein 6.7 g/dL (6.4-8.2)
[2018-03-23] MEDS ORDERED: Chlorhexidine Gluconate 2% 1 Pack (2 Cloths) TOPICAL SCH (02:30)
[2018-03-23] MEDS ORDERED: Sodium Chlor 0.9% Inj 500 ML IV.SIG SCH (03:00)
[2018-03-23] MEDS: Metoprolol Tartrate 25 MG Tablet PO SCH ×6 (03:16→23:32)
[2018-03-23] MEDS ORDERED: Heparin - SQ 10,000 UNITS/ML Vial ONE (06:31)
[2018-03-23] MEDS ORDERED: ceFAZolin 2 GM Premix Inj 2 GM/50 ML PIGGYBACK IV.SIG ONE (06:31)
[2018-03-23] MEDS ORDERED: Midazolam Inj 5 MG/ML 1 ML Vial ONE (07:08)
[2018-03-23] MEDS ORDERED: fentaNYL Citrate Inj 250 MCG/5 ML Ampul ONE ×4 (07:08→12:39)
[2018-03-23 09:41] LABS: Hemoglobin A1c 5.3 % (4.3-6.0)
--- NOTE | 2018-03-23 10:28 | P.DCO ---
- Home Health Nursing Order: Signs/symptoms of disease process, Medication education-adverse effect, Wound care and dressing changes, Nursing assessment with vital signs Instructions: Heart and Vascular Surgery patients *Special attention to sternal dressing Mandatory frequency Assess and evaluation, 4 days in a row The next week 3X week 2 times a week for 4 weeks 1 time a week for 5 weeks Schedule Heart and Vascular patients for full 60 day certification period Initial visit Review Open Heart Surgery Discharge Instructions (Sternal precautions, Activity, Elastic hose, Incision care, Driving, Incentive spirometry, Smoking, [place], Work and other) Need Betadine to paint incision Medication reconciliation Importance of follow up care/ check on appointments Make calendar record temperature daily When to call [facility] nurse, review instructions, phone list Incentive Spirometry, demonstration Visit 1- Begin discharge instruction for patient family and/ or caregiver using teach back method- Signs and symptoms of infection Disease characteristics Medicines and side effects Foods and nutrition/ appetite Infection control/ hand washing/ hygiene Visit 2- Continue teaching Discharge instructions- include additional information on smoking cessation , sternal dressing (sternal vac) Visit 3- Continue teaching- Cough and deep breathing, incision monitoring. Choose my plate Visit 4- Continue teaching- Discuss limitations Discuss how they are feeling Discuss progress toward goals Remaining visits- continue teaching and monitoring For any questions please call : Tuesday 8am-5pm Heart & Vascular Surgery Office ( Dr. Santiago & Dr. Leary), After Hours / Nights (5pm -8am) Weekends and Holidays Please call [facility] Cardiac Intermediate Care Unit (CIC) Charge Nurse PREVENA Single Use Negative Wound Therapy System Caregiver Instruction Sheet 1. A Prevena dressing system was applied to the chest incision during surgery , to promote wound healing. It works via a suction device (negative pressure wound therapy) to remove low to moderate levels of exudate (drainage) and infectious materials. We recommend that the device stay in place for up to seven days, from day of surgery. 2. Day of Surgery__03/23/18 Day of Removal ____/10/16 3. The dressing should only be removed by a health critical care nurse specialist. Please arrange removal of device to coincide with Home Health visit and or with Nursing staff at Rehab 4. If skin reddening or irritation of skin occurs, or excessive drainage, please notify the Cardiovascular Surgeons office at [phone]. 5. Light showering is permissible; however the pump should be disconnected and placed in safe location, where it will not get wet. The dressing should not be exposed to direct spray or submerged in water. No bath tub / shower only. Ensure the end of the tubing attached to the dressing is facing down so that water does not enter the top of the tube. 6. To remove Prevena dressing: press purple button to turn off device / remove the suction. Then disconnect the tubing from the pump. The fixation strips should be stretched away from the skin and the dressing lifted at one corner and peeled back until it has been fully removed. 7. After removal, it is ok to shower daily using liquid dial soap and clean wash cloth, rinse and pat dry, and leave incision open to air dry. For any concerns regarding Prevena dressing, and or wounds, please contact Muriel Escalante, patient navigator at [phone] or notify the Cardiovascular Surgeons office at [phone]. Incentive spirometry Q1 hr x 10, while awake, also use acapella device hourly whole awake Sternal Breast Bone Precautions: NO pushing or pulling, ( pt must use sternal pillow to support chest with all activities and with coughing ( takes up to 3 months breast bone to heal ) Daily incision care: ok to shower daily, no tub bath. Wash all incisions with liquid dial soap, clean wash cloth to each site, rinse and pat dry. Observe for any signs of infection, such as drainage which is dark yellow, crespo, green or foul smelling. Immediately report to the surgeon any drainage from the chest incision, or legs, and for any abnormal drainage from the chest tube sites. Notify surgeon if any temp >101.5 degrees F. When specialty dressing removed/ or if you do not have one, continue to shower daily as above, then rinse and pat incision dry and paint with betadine daily x 5 days. Allow steri strips to fall off if you have any. Avoid lotions, creams, salves, oils, etc. for the first month Please see attached forms for additional instructions regarding post Open Heart specialty wound vacuum dressings. JUAN or Prevena , Dressing to be removed by Nursing staff on __03/30/18 F/U appointment: as per DC instructions: PCP in 2 weeks, CV surgeon 2 weeks, [employer] Front Desk Attendant 3-4 weeks For any questions regarding incisions/ dressing / meds / post op care or above Symptoms, Tuesday 8am-5pm Heart & Vascular Surgery Office ( Dr. Santiago & Dr. Leary), After Hours / Nights (5pm -8am) Weekends and Holidays Please call [facility] Cardiac Intermediate Care Unit (CIC) Charge Nurse - Certification I have seen patient Bishnu Briceño on 03/23/18. My clinical findings support the need for the requested home health care services because: Deconditioned with increased weakness I certify that my clinical findings support that this patient is homebound because: Post-op weakness
--- NOTE | 2018-03-23 10:32 | P.PNCV ---
- Note Subjective/Hospital Course: 52-year-old male transferred from [place] emergency department, who presented with chest pain after he was trying to unload a truck and had some acute central chest pain radiating to his neck with some shortness of breath. He was worked up in the emergency department and was found to have elevated troponins for a non-STEMI. He was transferred to the [facility] . He underwent cardiac catheterization 03/22/[address] Thomas which showed an ejection fraction of 25%, left main disease of 60% proximal LAD 95%, mid distal LAD 80%, circumflex was 95, the RCA 95. Intraaortic balloon pump was placed due to class IV CHF and his low ejection fraction. We were consulted for emergent coronary artery bypass graft. PMH: carotid artery disease, recent left carotid endarterectomy 08/2017 at [facility], history of asthma, seizure disorder, hiatal hernia, history of a recent CVA. residual left arm and left weakness, ETOH abuse 03/23 pt for surgery today Objective: Vital Signs - 24 hr 03/22/18 11:00 03/22/18 14:00 03/22/18 15:00 Temperature 97.7 F Pulse Rate 91 H 85 85 Respiratory Rate 18 Blood Pressure 158/73 H Pulse Oximetry 98 96 03/22/18 16:00 03/22/18 17:53 03/22/18 19:00 Temperature Pulse Rate 78 95 H Respiratory Rate 24 Blood Pressure Pulse Oximetry 03/22/18 20:08 03/22/18 20:17 03/22/18 23:00 Temperature Pulse Rate 92 H Respiratory Rate 21 Blood Pressure Pulse Oximetry 93 L 93 L 03/22/18 23:13 03/23/18 03:00 03/23/18 05:23 Temperature Pulse Rate 90 Respiratory Rate 22 Blood Pressure Pulse Oximetry 93 L 86 L 03/23/18 05:29 03/23/18 07:00 Temperature Pulse Rate 85 Respiratory Rate Blood Pressure Pulse Oximetry 96 Labs: Laboratory Results - last 12 hr 03/22/18 03/22/18 03/22/18 21:40 21:40 21:40 PT 11.0 INR 1.1 APTT 39.7 H Sodium 137 Potassium 3.7 Chloride 102 Carbon Dioxide 26.2 Anion Gap 9 BUN 10 Creatinine 1.39 H Estimated GFR 53 L Random Glucose 111 H Calcium 8.9 Total Bilirubin 1.4 H AST 18 ALT 35 Alkaline Phosphatase 71 Total Protein 6.7 Albumin 3.3 L Blood Type O Positive Antibody Screen Negative MTS Gel Crossmatch See Detail Result Diagrams: 03/22/18 21:40 03/22/18 21:40
[2018-03-23] MEDS ORDERED: Dextrose 5% in Water Inj 100 ML IV.SIG ONE (12:00)
[2018-03-23] MEDS ORDERED: Heparin - SQ 10,000 UNITS/ML Vial OTHER ONE (12:00)
[2018-03-23] MEDS ORDERED: Phenylephrine/NS 1000 MCG/10ML Syringe IV.PUSH ONE (12:00)
[2018-03-23] MEDS ORDERED: Lidocaine PF 1% Inj 5 ML Vial INFILTRATN ONE (12:00)
[2018-03-23] MEDS ORDERED: Protamine Sulfate Inj 250 MG/25 ML Vial IV.PUSH ONE (12:00)
[2018-03-23] MEDS ORDERED: Dexmedetomidine Inj 200 MCG/2 ML Vial IV.PUSH ONE (12:00)
[2018-03-23] MEDS ORDERED: Sugammadex Inj 200 MG/2 ML Vial IV.PUSH ONE (12:29)
[2018-03-23] MEDS ORDERED: RESP: Racemic Epinephrine 2.25% 0.5 ML Neb NEB PRN (13:18)
[2018-03-23] MEDS ORDERED: Calcium Chloride Inj 1 GM/10 ML Syringe IV.PUSH PRN (13:18)
[2018-03-23] MEDS ORDERED: Potassium Chlor 20 mEq Premix 20 MEQ/100 ML PIGGYBACK IV.SIG PRN ×4 (13:18→16:58)
[2018-03-23] MEDS ORDERED: Clevidipine Inj 25 MG/50 ML VIAL IV.CONT PRN (13:18)
[2018-03-23] MEDS ORDERED: Dextrose 50% in Water 50 ML Vial IV.PUSH PRN (13:18)
[2018-03-23] MEDS ORDERED: Magnesium Sulfate Inj 2 GM in Sodium Chlor 0.9% Inj 96 ML IV.SIG PRN ×4 (13:18)
[2018-03-23] MEDS ORDERED: Morphine Inj 4 MG/ML Vial IV.PUSH PRN (13:18)
[2018-03-23] MEDS ORDERED: Ketorolac Inj 30 MG/ML (IVP) Vial IV.PUSH PRN (13:18)
[2018-03-23] MEDS ORDERED: Post-op Orders (for Pharmacy) OTHER STA (13:18)
[2018-03-23] MEDS ORDERED: Insulin Regular (For Infusion) 100 UNIT in Sodium Chlor 0.9% Inj 99 ML IV.CONT PRN (13:18)
[2018-03-23] MEDS ORDERED: hydrALAZINE HCl Inj 20 MG/ML Vial IV.PUSH PRN (13:18)
[2018-03-23] MEDS: Dexmedetomidine Inj 200 MCG in Sodium Chlor 0.9% Inj 48 ML IV.CONT PRN ×4 (14:00→21:33)
[2018-03-23] MEDS ORDERED: ceFAZolin Inj 2,000 MG in Sodium Chlor 0.9% Inj 80 ML IV.SIG SCH (14:00)
[2018-03-23] MEDS: fentaNYL Citrate Inj 100 MCG/2 ML Ampul IV.PUSH PRN ×3 (14:00→18:25)
[2018-03-23] MEDS ORDERED: fentaNYL Citrate Inj 100 MCG/2 ML Ampul ONE (14:05)
[2018-03-23] MEDS: Mupirocin 2% Nasal Oint Topical Syringe EACH NARE SCH (14:26)
[2018-03-23] MEDS: Senna/Docusate Sodium 8.6/50 MG Tablet PO SCH ×2 (14:27→23:34)
--- NOTE | 2018-03-23 14:28 | XR ---
EXAM DATE: 03/23/2018 2:19 PM EDT AGE/SEX: 52 years / Male INDICATIONS: Post CABG with intubation and central line placement CLINICAL DATA: This is the patient's initial encounter. Patient reports that signs and symptoms have been present for 1 day and indicates a pain score of Nonresponsive. MEDICAL/SURGICAL HISTORY: . : Asthma. Hiatal hernia. Seizure. Stroke. Occlusion of right caroti d artery. Hyperlipidemia. . . Left carotid endarterectomy COMPARISON: [facility], CHEST 1V SINGLE AP, 03/21/2018. . FINDINGS: A single AP supine portable view of the chest was obtained and demonstrates the patient is status pos t interval median sternotomy. A nasogastric tube is placed into the stomach. The patient has been int ubated with the endotracheal tube tip approximately 4 cm above the kandis. A right internal jugular c entral venous line is in place with the tip projected over the superior vena cava. There is no pneumo thorax. There are bilateral chest tubes and mediastinal chest tube in place. The heart size is mildly prominent. Mild hazy opacity is present in both lungs with no focal consolidation. The study is more mid inspiratory. CONCLUSION: 1. Interval intubation and placement of central venous line with no evidence of pneumothorax. 2. Placement of nasogastric tube and chest tubes. 3. Mid inspiratory study with crowding of the lung vasculature. Electronically signed by: Levar Ramírez MD 03/23/2018 2:27 PM EDT
[2018-03-23] MEDS: Calcium Chloride Inj 1 GM in Sodium Chlor 0.9% Inj 100 ML IV.SIG PRN ×2 (15:03→18:27)
--- NOTE | 2018-03-23 15:03 | P.OP ---
Date of procedure: 03/23/18 Anesthesia: SILVIAA Surgeon: Tai Santiago MD Operation and Findings: PREPROCEDURE DIAGNOSES 1. Severe Multi Vessel Coronary Artery Disease. 2. Acute myocardial infarction 3. Severe left ventricular dysfunction (EF 25%) 4. Chronic nicotine use 5. History of stroke 2 6. Occluded right internal carotid artery POSTPROCEDURE DIAGNOSES Same SURGICAL PROCEDURE 1. Urgent off-pump Coronary Artery Bypass Grafting x 4 with Left Internal Mammary Artery (ROJAS) to Left Anterior Descending (LAD), reverse saphenous vein graft to obtuse marginal branch of the left circumflex artery, reverse saphenous vein graft to the ramus marginalis, reverse saphenous vein graft to the diagonal 1 branch of the LAD 2. Right leg Endoscopic Vein Jordan 3. Intraoperative Vein Mapping. SURGEON Tai Santiago MD [employer] Linda Rodriguez, MICHELLE Costa ANESTHESIA General endotracheal WHITE SHOE EXAMINER Rohit Beard, WHITE SHOE EXAMINER Theodore Tran MD PREPARATION ChloraPrep. COUNTS Needle, sponge, and instrument counts were correct. DRAINS Two 32-Tanzanian mediastinal tubes. COMPLICATIONS None. INDICATIONS FOR PROCEDURE The patient is a 52-year-old presenting with chest pain. Patient was noted to have severe multi-vessel coronary artery disease in the setting of an acute myocardial infarction with severe left ventricular dysfunction. The patient is being brought to the operating room for urgent surgical revascularization therapy. PROCEDURE Patient was brought to the operating room and placed supine on the OR table. Following the induction of adequate general endotracheal anesthesia and placement of appropriate monitoring devices, intraoperative vein mapping was performed which revealed good-caliber conduit in bilateral lower extremities. The patient was then prepped and draped in standard sterile fashion. Next, 2500 units of intravenous heparin was given. The right greater saphenous vein was harvested endoscopically. This appeared to be a useable-caliber conduit. Simultaneously, a median sternotomy was performed and the left internal mammary artery dissected free off the posterior sternal table. The patient was systemically heparinized and anticoagulation monitored by serial ACT measurements. The internal mammary artery had excellent pulsatile flow in it and was a good-caliber conduit. The pericardium was then divided in the midline , the cradle created and targets analyzed. At this point, all anastomoses were performed in a beating-heart fashion using the SoundFit stabilizing system. The left internal mammary artery was anastomosed to the distal LAD (2 mm) in an end- to-side fashion using 7-0 Prolene. Segment of saphenous vein graft was then anastomosed to the OM branch of the circumflex artery (2 mm) in an end-to-side fashion using 7-0 Prolene. The next segment was anastomosed to the ramus marginalis (2 mm) in an end-to-side fashion using 7-0 Prolene. The final segment was anastomosed to the diagonal 1 (2 mm) in an end-to-side fashion using 7-0 Prolene. The proximal anastomoses were then constructed to the ascending aorta in a running manner using 6-0 Prolene. All anastomotic sites were inspected and appeared to be hemostatic and patent. Protamine solution was given. Strict hemostasis was assured. The closure was undertaken. 2 chest tubes were placed. The pericardium was reapproximated in the midline. The sternum was approximated using sternal wires. The muscular and fascial layer were then closed in 3 layers. The endoscopic vein harvest site was closed in 2 layers. The patient tolerated the procedure well and was transferred to CVICU in stable condition.
[2018-03-23] MEDS: ceFAZolin 2 GM Premix Inj 2 GM/50 ML PIGGYBACK IV.SIG SCH ×2 (15:08→21:30)
--- NOTE | 2018-03-23 15:35 | P.CONCC ---
History of Present Illness Service: Critical care Consult date: 03/23/18 Requesting Physician: Tai Santiago Reason for Consult: Post CABG, resp failure Primary Care Provider: No Primary Care Physician Chief Complaint: Acute ID, Shock, Pulmonary edema History of Present Illness: A 52-year-old male with past medical history significant for stroke 2, occluded right internal carotid artery, continued tobacco use, asthma, seizure disorder who presented to the emergency department with chest pain. ER workup showed elevated troponin and he ruled in for a non-ST elevation ID. He underwent cardiac catheterization 03/[address] Thomas which showed an ejection fraction of 25%, left main disease of 60% proximal LAD 95%, mid distal LAD 80%, circumflex was 95, the RCA 95. Intraaortic balloon pump was placed and CTS consulted for emergent coronary artery bypass graft. Patient underwent urgent off-pump Coronary Artery Bypass Grafting x 4 with Left Internal Mammary Artery to Left Anterior Descending, reverse saphenous vein graft to obtuse marginal branch of the left circumflex artery, reverse saphenous vein graft to the ramus marginalis, reverse saphenous vein graft to the diagonal 1 branch of the LAD. Apparently airway was anterior and glide scope was used for intubation. Post op patient was moved to the CVICU where I met him. Patient is currently sedated with 1.5 mcg/kg/h Precedex. Currently on Nicolas-Synephrine 60 mcg/min to maintain MAP above 65. There was dysfunction of intra-aortic balloon pump and this was subsequently removed by Dr. Santiago. Due to hypotension Nicolas-Synephrine was titrated up and patient was started on dobutamine at 2.5 mcg/kg/min. CXR was reviewed, showed bilateral pulmonary edema. Will increase nicolas to improve MAP , increase Dobutamine to 5 mcg/kg/min and then give Lasix 40 mg IVP STAT Review of Systems unobtainable due to endotracheal tube PMFSH - History History Provided By: Patient - Medical History Medical History: Medical History (Last Reviewed 03/23/18 @ 11:49 by Ian Holley) Asthma (Acute) Seizure (Acute) Inguinal hernia (Acute) Hiatal hernia (Acute) Stroke (Acute) - Surgical History Surgical History: Surgical History (Last Reviewed 03/23/18 @ 11:49 by Ian Holley) Status post carotid surgery (Acute) - Tobacco History Second Hand Smoke Exposure: No Tobacco Use In Past 30 Days: Yes Smoking Status: Current every day smoker Tobacco Type: Cigarettes - Alcohol History How Often Do You Have a Drink Containing Alcohol: 2 to 3 times a week - Substance Use History Substance History: Active Abuse - Substance Use Type Crack/Cocaine Status: Active Route Used: Inhalation Frequency: once a month Reason for Use: Calm Down - Travel History Recent Travel in the [place] Within the Last 8 Weeks: No Recent Travel Out of the Country Within the Last 8 Weeks: No - Immunization History Tetanus Immunization: <5 Years Hx Influenza Vaccine This Season: No Medications and Allergies Active Medications: Active Medications Acetaminophen (Tylenol) 650 mg PO Q4H PRN PRN Reason: HEADACHE OR TEMP > 101 F Last Admin: 03/22/18 16:12 Dose: 650 mg Hydrocodone Bitart/Acetaminophen ([place] 5/325) 1 tab PO Q3H PRN PRN Reason: PAIN SCALE 1 TO 5 Al Hydroxide/Mg Hydroxide (Milk Of Magnchris Liq) 30 ml PO Q12HR PRN PRN Reason: Mild Constipation Albuterol (Duoneb Neb (Prn)) 1 ampul NEB Q2HR NEB PRN PRN Reason: WHEEZING Albuterol (Duoneb Neb (Chris)) 1 ampul NEB Q6HR NEB [facility] Alprazolam (Xanax) 0.25 mg PO Q4H PRN PRN Reason: ANXIETY Last Admin: 03/22/18 16:08 Dose: 0.25 mg Amiodarone HCl (Cordarone) 200 mg PO Q12HR [facility] Aspirin (Aspirin Chew) 81 mg PO DAILY [facility] Atorvastatin Calcium (Lipitor) 10 mg PO HS [facility] Last Admin: 03/22/18 20:52 Dose: 10 mg Bisacodyl (Dulcolax Supp) 10 mg RECTAL DAILY PRN PRN Reason: SEVERE CONSITIPATION Calcium Chloride (Calcium Chloride Inj) 0.5 gm IV.PUSH PRN PRN PRN Reason: SEE LABEL COMMENTS Chlorhexidine Gluconate (Hibiclens 4% Topical) 1 applicatio TOPICAL [employer]S SUPERVISOR [facility] Stop: 03/28/18 14:30 Chlorhexidine Gluconate (Chlorhexidine 2% Cloth) 3 pack TOPICAL [employer] SUPERVISOR [facility] Stop: 03/26/18 02:27 Clopidogrel Bisulfate (Plavix) 75 mg PO DAILY [facility] Sodium Chloride 500 ml/ (Cefazolin Sodium 500 mg) 0 ml IRRIGATION [employer]S SUPERVISOR [facility] Stop: 03/28/18 14:32 Sodium Chloride 57.5 ml/Papaverine HCl 60 mg/Nitroglycerin 100 mcg/Verapamil HCl 100 mg 0 ml IRRIGATION [employer] SUPERVISOR [facility] Stop: 03/28/18 14:30 Dextrose (D50w Vial) 50 ml IV.PUSH UNSCH PRN PRN Reason: x 2 per Hypoglycemia Protocol Epinephrine (Racepinephrine 2.25% Neb) 0.5 ml NEB UNSCH X1 PRN PRN Reason: STRIDOR Fentanyl Citrate (Fentanyl Inj) 25 mcg IV.PUSH Q1H PRN PRN Reason: BREAKTHROUGH PAIN Insulin Human Regular 100 unit (/ Sodium Chloride) 100 mls @ 3 mls/hr IV.CONT TITRATE PRN; Protocol PRN Reason: See Protocol Heparin Sodium/Dextrose (Heparin/D5w 25,000 U/250 Ml) 25,000 unit in 250 mls @ 0 mls/hr IV.CONT TITRATE PRN; Protocol PRN Reason: Per Protocol Last Titration: 03/23/18 03:30 Dose: Infused Lactated Ringer's (Lr 1000 Ml Inj) 1,000 mls @ 30 mls/hr IV.SIG .Q24H [facility] Stop: 03/26/18 02:27 Last Infusion: 03/23/18 07:30 Dose: Infused Sodium Chloride (Ns Inj) 500 mls @ 30 mls/hr IV.SIG .Q10H [facility] Stop: 03/26/18 02:27 Acetaminophen (Ofirmev Inj) 1,000 mg in 100 mls @ 400 mls/hr IV.SIG Q6H [facility] Stop: 03/24/18 09:14 Albumin Human (Buminate 5% Inj) 250 mls @ 250 mls/hr IV.SIG UNSCH PRN PRN Reason: SEE LABEL COMMENTS Calcium Chloride 1 gm/ Sodium (Chloride) 110 mls @ 100 mls/hr IV.SIG PRN PRN PRN Reason: SEE LABEL COMMENTS Clevidipine (Cleviprex Inj) 25 mg in 50 mls @ 2 mls/hr IV.CONT TITRATE PRN; Protocol PRN Reason: Per protocol Dexmedetomidine HCl 200 mcg/ (Sodium Chloride) 50 mls @ 4.3 mls/hr IV.CONT TITRATE PRN; Protocol PRN Reason: Per Protocol Dobutamine HCl/Dextrose (Dobutamine 250 Mg/250 Ml Premx) 250 mg in 250 mls @ 12.9 mls/hr IV.CONT .[id number] [facility] Insulin Human Regular 100 unit (/ Sodium Chloride) 100 mls @ 3 mls/hr IV.CONT TITRATE PRN; Protocol PRN Reason: See Protocol Lactated Ringer's (Lr 1000 Ml Inj) 500 mls @ 500 mls/hr IV.SIG .Q1H PRN PRN Reason: SEE LABEL COMMENTS Magnesium Sulfate Inj 2 gm/ (Sodium Chloride) 100 mls @ 50 mls/hr IV.SIG PRN PRN PRN Reason: SEE LABEL COMMENTS Magnesium Sulfate Inj 2 gm/ (Sodium Chloride) 100 mls @ 50 mls/hr IV.SIG PRN PRN PRN Reason: SEE LABEL COMMENTS Potassium Chloride (Kcl 20 Meq Premix Inj) 20 meq in 100 mls @ 50 mls/hr IV.SIG PRN PRN PRN Reason: SEE LABEL COMMENTS Potassium Chloride (Kcl 20 Meq Premix Inj) 20 meq in 100 mls @ 50 mls/hr IV.SIG PRN PRN PRN Reason: SEE LABEL COMMENTS Potassium Chloride (Kcl 20 Meq Premix Inj) 20 meq in 100 mls @ 50 mls/hr IV.SIG PRN PRN PRN Reason: SEE LABEL COMMENTS Cefazolin Sodium/Dextrose (Ancef 2 Gm Premix Inj) 2 gm in 50 mls @ 100 mls/hr IV.SIG Q8H [facility] Stop: 03/24/18 22:29 Phenylephrine HCl 40 mg/ (Sodium Chloride) 500 mls @ 30 mls/hr IV.CONT TITRATE PRN; Protocol PRN Reason: See Protocol Ketorolac Tromethamine (Toradol Inj) 15 mg IV.PUSH Q6H PRN PRN Reason: SEE LABEL COMMENTS Stop: 03/25/18 13:17 Lactulose (Lactulose Liq) 30 ml PO DAILY PRN PRN Reason: SEVERE CONSITIPATION Meperidine HCl (Demerol Inj) 12.5 mg IV.PUSH Q4H PRN PRN Reason: SHIVERING Metoprolol Tartrate (Lopressor) 12.5 mg PO BID [facility] Last Admin: 03/23/18 14:26 Dose: Not Given Metoprolol Tartrate (Lopressor Inj) 2.5 mg IV.PUSH Q1H PRN PRN Reason: SEE LABEL COMMENTS Morphine Sulfate (Morphine Inj) 2 mg IV.PUSH Q3H PRN PRN Reason: PAIN SCALE 6 TO 10 Last Admin: 03/22/18 23:11 Dose: 2 mg Morphine Sulfate (Morphine Inj) 1 mg IV.PUSH Q10M PRN PRN Reason: PAIN SCALE 1 TO 5 Mupirocin (Bactroban 2% Nasal Oint) 1 applicatio EACH NARE BID [facility] Stop: 03/26/18 14:33 Last Admin: 03/23/18 14:26 Dose: Not Given Nitroglycerin (Nitro-Bid 2% Oint) 0.5 inch TOPICAL Q6HR [facility] Last Admin: 03/23/18 14:27 Dose: Not Given Ondansetron HCl (Zofran Odt) 4 mg SL Q6H PRN PRN Reason: NAUSEA OR VOMITING Pantoprazole Sodium (Protonix) 40 mg PO DAILY@06 [facility] Phenylephrine HCl (Neosynephrine Inj) 0.1 mg IV.PUSH PRN PRN PRN Reason: SEE LABEL COMMENTS Potassium Chloride (K-Dur) 20 meq PO PRN PRN PRN Reason: SEE LABEL COMMENTS Potassium Chloride (K-Dur) 40 meq PO PRN PRN PRN Reason: SEE LABEL COMMENTS Povidone Iodine (Betadine 5% Antisepsis Kit) 1 applicatio EACH NARE [employer] SUPERVISOR [facility] Stop: 03/26/18 02:27 Senna/Docusate Sodium (Sulma-Colace) 1 tab PO BID [facility] Last Admin: 03/23/18 14:27 Dose: Not Given Sennosides (Senokot) 17.2 mg PO Q12HR PRN PRN Reason: Moderate Constipation Sodium Bicarbonate (Sodium Bicarbonate 8.4% Inj) 50 meq IV.PUSH UNSCH PRN PRN Reason: SEE LABEL COMMENTS Sodium Bicarbonate (Sodium Bicarbonate 8.4% Inj) 100 meq IV.PUSH UNSCH PRN PRN Reason: SEE LABEL COMMENTS Sodium Chloride (Ns Flush) 2 ml IV.FLUSH BID [facility] Last Admin: 03/23/18 14:26 Dose: Not Given Sodium Chloride (Ns Flush) 2 ml IV.FLUSH PRN PRN PRN Reason: FLUSH AFTER USING IV ACCESS Sodium Chloride (Ns Flush) 2 ml IV.FLUSH BID [facility] Sodium Chloride (Ns Flush) 2 ml IV.FLUSH PRN PRN PRN Reason: FLUSH AFTER USING IV ACCESS Temazepam (Restoril) 15 mg PO HS PRN PRN Reason: INSOMNIA Last Admin: 03/22/18 23:10 Dose: 15 mg Terbutaline Sulfate (Brethine Inj) 1 mg SQ UNSCH PRN PRN Reason: For Extravasation Allergies Allergy/AdvReac Type Severity Reaction Status Date / Time codeine AdvReac Vomiting Verified 03/15/18 20:32 Physical Exam Vital signs: Vital Signs 03/22/18 16:00 03/22/18 17:53 03/22/18 19:00 Pulse Rate 78 95 H Respiratory Rate 24 Pulse Oximetry 03/22/18 20:08 03/22/18 20:17 03/22/18 23:00 Pulse Rate 92 H Respiratory Rate 21 Pulse Oximetry 93 L 93 L 03/22/18 23:13 03/23/18 03:00 03/23/18 05:23 Pulse Rate 90 Respiratory Rate 22 Pulse Oximetry 93 L 86 L 03/23/18 05:29 03/23/18 07:00 03/23/18 14:07 Pulse Rate 85 Respiratory Rate 32 H Pulse Oximetry 96 93 L Intake & Output 03/22/18 03/23/18 03/23/18 18:59 06:59 18:59 Intake Total 55 / 55 207 / 207 3900 / 3900 Output Total 100 / 100 575 / 575 2400 / 2400 Balance -45 / -45 -368 / -368 1500 / 1500 Weight 86 kg Intake: IV 55 / 55 107 / 107 1050 / 1050 Heparin/D5W 25,000 U/250 mL 25, 55 / 55 107 / 107 000 unit In 250 ml @ Per Protocol IV.CONT TITRATE PRN Rx #:[id number] LR 1000 mL Inj 1,000 ML @ 30 1000 / 1000 mls/hr IV.SIG .Q24H [facility] Rx#: [id number] Ancef 2 GM Premix Inj 2 gm In 50 / 50 50 ml @ 200 mls/hr IV.SIG [employer] SUPERVISOR [facility]RIS Rx#:[id number] Oral 100 / 100 Anesthesia Amount 1999 / 1999 Cell Saver Amount 850 / 850 Output: Urine 100 / 100 575 / 575 Estimated Blood Loss 1700 / 1700 Urine Amount (Catheter) 700 / 700 Indwelling Temp Sensing 700 / 700 Catheter Other: # Voids 1 Narrative: GENERAL: This is a well-nourished, well-developed patient, intubated sedated with Precedex CARDIOVASCULAR: Midline CABG incision dressing intact, C/D/I. Currently on Nicolas- Synephrine 60 mcg/min, dobutamine 2.5 mcg/kg/min RESPIRATORY: Air entry diminished bilaterally with basilar rales. Breath sounds equal bilaterally. No wheezes GASTROINTESTINAL: Abdomen soft, non-tender, nondistended. Normal active bowel sounds MUSCULOSKELETAL: Extremities without clubbing, cyanosis, or edema. Right groin site without hematoma or IABP was removed NEURO: Limited exam as the patient is sedated with Precedex. Moves all extremities on lightening sedation - Urinary Catheter Management Indwelling Temp Sensing Catheter Cath placed during this visit: yes Reason for continuing: Hourly intake/output Insertion date: 03/23/18 Insertion time: 07:38 Septic Shock Reassessment Septic shock perfusion: reassessment completed Assessment and Plan - Assessment and Plan Plan: ASSESSMENT: Acute non-ST elevation ID status post CABG Acute exacerbation of systolic heart failure Cardiogenic shock Acute hypoxemic respiratory failure Severe multivessel coronary artery disease CVA 2 Right internal carotid artery occlusion chronic Tobacco abuse PLAN: NEURO: -Precedex for sedation and to facilitate ventilator weaning -Opiate/Tylenol/Toradol as needed for pain control RESP: -Hypoxemic respiratory failure seems to be secondary to pulmonary edema -Diuresis and inotropic agents as below -Currently on SIMV/pressor support. Start spontaneous breathing trials once oxygenation is improved -Ventilator bundle. DuoNeb scheduled and as needed -Patient appears to have anterior airway by clinical exam (prominent overbite, less than 3 fingerbreadth thyromental distance, short neck. Apparently glide scope intubation in the OR) CV: -Evidence of pulmonary edema on chest x-ray -Increase Nicolas-Synephrine to 60 mcg/min, increase dobutamine to 5 mcg/kg/min to maintain map above 65 and cardiac output -Diuresis with IV Lasix 40 mg stat. Discontinue all IV fluids -Continue amiodarone 200 mg twice daily. Metoprolol on hold when hypotensive -Resume aspirin and Plavix 03/24/2018 -Currently on Lipitor 10 mg nightly, increase to 80 mg nightly GI: -N.p.o., IV PPI : -Monitor renal function closely. Garcia catheter. -IV Lasix as above ID: -Perioperative antibiotics per cardiothoracic surgery HEME: -Monitor CBC, coags ENDO: -Electrolyte replacement per protocol -IV insulin per CVICU protocol PROPH: -PPI, chemical DVT prophylaxis when cleared by cardiothoracic surgery CC time 45 min Code Status: Full Discussed Condition With: Dr. Santiago
[2018-03-23] MEDS: DOBUTamine 250 MG/250 ML Premx 250 MG/250 ML BAG IV.CONT SCH (15:49)
[2018-03-23] MEDS: Phenylephrine Inj 40 MG in Sodium Chlor 0.9% Inj 496 ML IV.CONT PRN (15:51)
[2018-03-23] MEDS ORDERED: Calcium Chloride Inj 1 GM in Sodium Chlor 0.9% Inj 100 ML IV.SIG PRN (17:08)
[2018-03-23] MEDS: Albumin Human 5% Inj 250 ML IV.SIG PRN (19:30)
--- NOTE | 2018-03-23 20:53 | P.PNCA ---
Subjective Interval history: intubated, sedated Physical Exam Vital signs: Vital Signs 03/22/18 23:00 03/22/18 23:13 03/23/18 03:00 Temperature Pulse Rate 92 H 90 Respiratory Rate 22 Blood Pressure Pulse Oximetry 93 L 93 L 03/23/18 05:23 03/23/18 05:29 03/23/18 07:00 Temperature Pulse Rate 85 Respiratory Rate Blood Pressure Pulse Oximetry 86 L 96 03/23/18 14:00 03/23/18 14:07 03/23/18 15:00 Temperature 100 F H 100 F H Pulse Rate 95 H 95 H Respiratory Rate 32 H Blood Pressure 84/46 L Pulse Oximetry 93 L 93 L 03/23/18 16:00 03/23/18 16:26 03/23/18 17:44 Temperature 100.9 F H 100 F H Pulse Rate 103 H 97 H Respiratory Rate 16 24 Blood Pressure 102/60 Pulse Oximetry 96 Intake & Output 03/23/18 03/23/18 03/24/18 06:59 18:59 06:59 Intake Total 207 / 207 4310 / 4310 231 / 231 Output Total 575 / 575 5062 / 5062 Balance -368 / -368 -752 / -752 231 / 231 Weight 86 kg Intake: IV 107 / 107 1460 / 1460 231 / 231 Precedex Inj 200 MCG In NS Inj 50 / 50 48 ML @ 0.2 MCG/KG/HR 4.3 mls/ hr IV.CONT TITRATE PRN Rx#: [id number] Heparin/D5W 25,000 U/250 mL 25, 107 / 107 000 unit In 250 ml @ Per Protocol IV.CONT TITRATE PRN Rx #:[id number] Neosynephrine Inj 40 MG In NS 231 / 231 Inj 496 ML @ 40 MCG/MIN 30 mls/ hr IV.CONT TITRATE PRN Rx#: [id number] Ofirmev Inj 1,000 mg In 100 ml 100 / 100 @ 400 mls/hr IV.SIG Q6H [facility] Rx# :[id number] Calcium Chloride Inj 1 GM In NS 110 / 110 Inj 100 ML @ 100 mls/hr IV.SIG PRN PRN Rx#:[id number] LR 1000 mL Inj 1,000 ML @ 30 1000 / 1000 mls/hr IV.SIG .Q24H [facility] Rx#: [id number] KCl 20 mEq Premix Inj 20 meq In 100 / 100 100 ml @ 50 mls/hr IV.SIG PRN PRN Rx#:[id number] Ancef 2 GM Premix Inj 2 gm In 100 / 100 50 ml @ 100 mls/hr IV.SIG Q8H [facility] Rx#:[id number] Oral 100 / 100 Anesthesia Amount 2000 / 2000 Cell Saver Amount 850 / 850 Output: Urine 575 / 575 Estimated Blood Loss 1700 / 1700 Urine Amount (Catheter) 3280 / 3280 Indwelling Temp Sensing 3280 / 3280 Catheter Chest Tube Drainage Anterior - Urinary Catheter Management Indwelling Temp Sensing Catheter Cath placed during this visit: yes Reason for continuing: Hourly intake/output Insertion date: 03/23/18 Insertion time: 07:38 Assessment and Plan - Assessment (1) CAD (coronary artery disease) Code(s): I25.10 - Atherosclerotic heart disease of [place] coronary artery without angina pectoris Status: Acute (2) CAD (coronary artery disease) Code(s): I25.10 - Atherosclerotic heart disease of [place] coronary artery without angina pectoris Status: Acute (3) Acute non-ST elevation myocardial infarction (NSTEMI) Code(s): I21.4 - Non-ST elevation (NSTEMI) myocardial infarction Status: Acute (4) S/P CABG (coronary artery bypass graft) Code(s): Z95.1 - Presence of aortocoronary bypass graft Status: Acute (5) Status post carotid surgery Code(s): Z98.890 - Other specified postprocedural states Status: Acute (6) Stroke Code(s): I63.9 - Cerebral infarction, unspecified Status: Acute - Plan 1.) CAD - pod# 0 s/p cabg, on norep and dobut, u/o good, intubated, d/w nursing staff
[2018-03-23] MEDS ORDERED: Amiodarone 200 MG Tablet PO SCH (21:00)
[2018-03-23] MEDS: fentaNYL 10 mcg/mL Premix Drip 2,500 MCG/250 ML BAG IV.SIG PRN (21:31)
[2018-03-23] MEDS ORDERED: Propofol Inj 500 MG/50 ML Vial ONE (22:34)
[2018-03-23] MEDS ORDERED: Propofol 1000 mg/100 ml Inj 1,000 MG/100 ML BOTTLE IV.CONT PRN (22:55)
[2018-03-24] MEDS: DOBUTamine 250 MG/250 ML Premx 250 MG/250 ML BAG IV.CONT SCH ×2 (00:36→11:44)
[2018-03-24] MEDS: Albumin Human 5% Inj 250 ML IV.SIG PRN (00:37)
[2018-03-24] MEDS: Phenylephrine Inj 40 MG in Sodium Chlor 0.9% Inj 496 ML IV.CONT PRN ×3 (00:39→20:53)
[2018-03-24] MEDS ORDERED: Mag Sulf 1 gm/100 ml Premix 100 ML IV.SIG ONE (01:44)
[2018-03-24 05:56] LABS: Baso # (Auto) 0.1 th/mm3 (0.0-0.2); Baso % (Auto) 0.5 % (0.0-2.0); Eos # (Auto) 0.1 th/mm3 (0.0-0.4); Eos % (Auto) 0.6 % (0.0-4.0); Hematocrit 31.8 % (39.0-51.0); Lymph # (Auto) 1.7 th/mm3 (1.0-4.8); Lymph % (Auto) 15.1 % (9.0-44.0); Mean Corpuscular HGB Conc 34.5 % (32.0-36.0); Mean Corpuscular Hemoglobin 30.1 pg (27.0-34.0); Mean Corpuscular Volume 87.2 fL (80.0-100.0); Mean Platelet Volume 8.6 fL (7.0-11.0); Mono # (Auto) 1.3 th/mm3 (0.0-0.9); Mono % (Auto) 12.2 % (0.0-8.0); Neut # (Auto) 7.9 th/mm3 (1.8-7.7); Neut % (Auto) 71.6 % (16.0-70.0); Platelet Count 162 th/mm3 (150-450); Red Blood Count 3.64 mil/mm3 (4.50-5.90); Red Cell Distribution Width 14.9 % (11.6-17.2)
--- NOTE | 2018-03-24 05:56 | XR ---
EXAM DATE: 03/24/2018 5:51 AM EDT AGE/SEX: 52 years / Male INDICATIONS: Post CABG. CLINICAL DATA: This is the patient's subsequent encounter. Patient reports that signs and symptoms h ave been present for 3 days and indicates a pain score of Nonresponsive. MEDICAL/SURGICAL HISTORY: . Asthma. Hiatal hernia. Seizure. Stroke. Occlusion of right carotid artery. Hyperlipidemia. . Left carotid endarterectomy [place] [facility] [place]. . FINDINGS: Stable ETT, right IJ central line, mediastinal drains and left-sided apical chest tube. No significan t pneumothorax. Improved diffuse interstitial prominence with persistent right lower lung zone patchy airspace disease. Cardiomediastinal contours are stable. Remainder of the exam is unchanged. CONCLUSION: 1. Stable tubes and lines. 2. No significant pneumothorax. 3. Improved positive fluid balance. 4. Right lower lung zone airspace disease, likely atelectasis. Electronically signed by: Jesus Pool MD 03/24/2018 5:55 AM EDT
[2018-03-24 06:31] LABS: Carbon Dioxide 23.9 meq/L (21.0-32.0); Magnesium 2.4 mg/dL (1.5-2.5); Potassium 4.1 meq/L (3.5-5.1)
[2018-03-24] MEDS: Mupirocin 2% Nasal Oint Topical Syringe EACH NARE SCH ×3 (06:33→21:47)
[2018-03-24] MEDS: ceFAZolin 2 GM Premix Inj 2 GM/50 ML PIGGYBACK IV.SIG SCH ×3 (06:35→22:27)
--- NOTE | 2018-03-24 07:22 | P.PNCC ---
Subjective Subjective Remarks/Hospital Course: A 52-year-old male with past medical history significant for stroke 2, occluded right internal carotid artery, continued tobacco use, asthma, seizure disorder who presented to the emergency department with chest pain. ER workup showed elevated troponin and he ruled in for a non-ST elevation CA. He underwent cardiac catheterization 03/[address] Thomas which showed an ejection fraction of 25%, left main disease of 60% proximal LAD 95%, mid distal LAD 80%, circumflex was 95, the RCA 95. Intraaortic balloon pump was placed and CTS consulted for emergent coronary artery bypass graft. Patient underwent urgent off-pump Coronary Artery Bypass Grafting x 4 with Left Internal Mammary Artery to Left Anterior Descending, reverse saphenous vein graft to obtuse marginal branch of the left circumflex artery, reverse saphenous vein graft to the ramus marginalis, reverse saphenous vein graft to the diagonal 1 branch of the LAD. Apparently airway was anterior and glide scope was used for intubation. Post op patient was moved to the CVICU where I met him. Patient is currently sedated with 1.5 mcg/kg/h Precedex. Currently on Nicolas-Synephrine 60 mcg/min to maintain MAP above 65. There was dysfunction of intra-aortic balloon pump and this was subsequently removed by Dr. Santiago. Due to hypotension Nicolas-Synephrine was titrated up and patient was started on dobutamine at 2.5 mcg/kg/min. CXR was reviewed, showed bilateral pulmonary edema. Will increase nicolas to improve MAP , increase Dobutamine to 5 mcg/kg/min and then give Lasix 40 mg IVP STAT 03/24: Sedated with propofol. Remains on Dobutamine 2.5 mcg/kg/min and Nicolas at 120 mcg/ kg/min. UO 3.2 L after 40 mg IVP of Lasix. Wakes up and follows commands. O2 sats improved Objective Vital Signs / I&O: Vital Signs 03/23/18 14:00 03/23/18 14:07 03/23/18 15:00 Temperature 100 F H 100 F H Pulse Rate 95 H 95 H Respiratory Rate 32 H Blood Pressure 84/46 L Pulse Oximetry 93 L 93 L 03/23/18 16:00 03/23/18 16:26 03/23/18 17:44 Temperature 100.9 F H 100 F H Pulse Rate 103 H 97 H Respiratory Rate 16 24 Blood Pressure 102/60 Pulse Oximetry 96 03/23/18 21:51 03/24/18 01:12 03/24/18 04:21 Temperature Pulse Rate 102 H 96 H Respiratory Rate 24 14 14 Blood Pressure Pulse Oximetry 98 99 99 Intake & Output 03/23/18 03/24/18 03/24/18 18:59 06:59 18:59 Intake Total 4310 / 4310 1698 / 1698 Output Total 5062 / 5062 Balance -752 / -752 1698 / 1698 Intake: IV 1460 / 1460 1698 / 1698 DOBUTamine 250 MG/250 ML Premx 250 / 250 250 mg In 250 ml @ 5 MCG/KG/MIN 25.8 mls/hr IV.CONT .Q9H42M [facility] Rx#:[id number] Precedex Inj 200 MCG In NS Inj 50 / 50 48 / 48 48 ML @ 0.2 MCG/KG/HR 4.3 mls/ hr IV.CONT TITRATE PRN Rx#: [id number] Neosynephrine Inj 40 MG In NS 1000 / 1000 Inj 496 ML @ 40 MCG/MIN 30 mls/ hr IV.CONT TITRATE PRN Rx#: [id number] Ofirmev Inj 1,000 mg In 100 ml 100 / 100 100 / 100 @ 400 mls/hr IV.SIG Q6H [facility] Rx# :[id number] Buminate 5% Inj 250 ML @ 250 250 / 250 mls/hr IV.SIG UNSCH PRN Rx#: [id number] Calcium Chloride Inj 1 GM In NS 110 / 110 Inj 100 ML @ 100 mls/hr IV.SIG PRN PRN Rx#:[id number] LR 1000 mL Inj 1,000 ML @ 30 1000 / 1000 mls/hr IV.SIG .Q24H [facility] Rx#: [id number] KCl 20 mEq Premix Inj 20 meq In 100 / 100 100 ml @ 50 mls/hr IV.SIG PRN PRN Rx#:[id number] Ancef 2 GM Premix Inj 2 gm In 100 / 100 50 / 50 50 ml @ 100 mls/hr IV.SIG Q8H [facility] Rx#:[id number] Anesthesia Amount 2000 / 2000 Cell Saver Amount 850 / 850 Output: Estimated Blood Loss 1700 / 1700 Urine Amount (Catheter) 3280 / 3280 Indwelling Temp Sensing 3280 / 3280 Catheter Chest Tube Drainage 82 / 82 Anterior 82 / 82 Result Diagrams: 03/24/18 05:15 03/24/18 05:15 Objective Remarks: GENERAL: This is a well-nourished, well-developed patient, intubated sedated with Propofol and fentanyl CARDIOVASCULAR: Midline CABG incision dressing intact, C/D/I. Currently on Nicolas- Synephrine 120 mcg/min, dobutamine 2.5 mcg/kg/min RESPIRATORY: Air entry diminished bilaterally at the bases. Breath sounds equal bilaterally. No wheezes GASTROINTESTINAL: Abdomen soft, non-tender, nondistended. Normal active bowel sounds MUSCULOSKELETAL: Extremities without clubbing, cyanosis, or edema. Right groin site without hematoma where IABP was removed NEURO: Wakes up easily, follows commands. Moves all extremities on lightening sedation Assessment and Plan - Assessment and Plan Plan: ASSESSMENT: Acute non-ST elevation CA status post CABG Acute exacerbation of systolic heart failure Shock Acute hypoxemic respiratory failure Severe multivessel coronary artery disease CVA 2 Right internal carotid artery occlusion chronic Tobacco abuse PLAN: NEURO: -Propofol/fentanyl for sedation and to facilitate ventilator weaning -As needed for pain control per CV orders RESP: -Hypoxemic respiratory failure seems to be secondary to pulmonary edema, improving -Diuresis and inotropic agents as below -Currently on SIMV/pressor support. Start spontaneous breathing trials today -Ventilator bundle. DuoNeb scheduled and as needed -Patient appears to have anterior airway by clinical exam (prominent overbite, less than 3 fingerbreadth thyromental distance, short neck. Apparently glide scope intubation in the OR) CV: -Evidence of pulmonary edema on chest x-ray, now improved with diuresis -Nicolas-Synephrine at 120 mcg/min, dobutamine 2.5 mcg/kg/min to maintain map above 65 and cardiac output -Diuresis with IV Lasix 40 mg yesterday, additional 20 mg IV today. -Continue amiodarone 200 mg twice daily. Metoprolol on hold when hypotensive -Resume aspirin and Plavix 03/24/2018 -Lipitor 80 mg nightly GI: -N.p.o., IV PPI : -Monitor renal function closely. Garcia catheter. -IV Lasix as above ID: -Perioperative antibiotics per cardiothoracic surgery HEME: -Monitor CBC, coags ENDO: -Electrolyte replacement per protocol -IV insulin per CVICU protocol PROPH: -PPI, chemical DVT prophylaxis when cleared by cardiothoracic surgery CC time 35 min Code Status: Full Discussed Condition With: Dr. Santiago
[2018-03-24] MEDS ORDERED: Sod Phosphate/Sod Biphosphate (Adult) Enema 133 ML Bottle RECTAL PRN ×2 (08:43→08:48)
[2018-03-24] MEDS ORDERED: Bisacodyl 10 MG Supp RECTAL PRN ×3 (08:43→10:00)
[2018-03-24] MEDS ORDERED: Dextrose 50% in Water 50 ML Vial IV.PUSH PRN ×2 (08:43→08:48)
[2018-03-24] MEDS ORDERED: Amiodarone 200 MG Tablet PO ONE (09:00)
[2018-03-24] MEDS ORDERED: Multivitamin/Minerals Therapeutic Tablet PO SCH (09:00)
[2018-03-24] MEDS ORDERED: Ketorolac Inj 30 MG/ML (IVP) Vial IV.PUSH ONE (09:00)
--- NOTE | 2018-03-24 10:02 | P.PNCA ---
Subjective Interval history: extubated in nad, states he feels better Physical Exam Vital signs: Vital Signs 03/23/18 14:00 03/23/18 14:07 03/23/18 15:00 Temperature 100 F H 100 F H Pulse Rate 95 H 95 H Respiratory Rate 32 H Blood Pressure 84/46 L Pulse Oximetry 93 L 93 L 03/23/18 16:00 03/23/18 16:26 03/23/18 17:44 Temperature 100.9 F H 100 F H Pulse Rate 103 H 97 H Respiratory Rate 16 24 Blood Pressure 102/60 Pulse Oximetry 96 03/23/18 20:00 03/23/18 21:51 03/24/18 00:00 Temperature 101.6 F H 100.9 F H Pulse Rate 98 H 102 H 113 H Respiratory Rate 25 H 24 17 Blood Pressure 129/68 87/54 L Pulse Oximetry 97 98 98 03/24/18 01:12 03/24/18 04:00 03/24/18 04:21 Temperature 98.8 F Pulse Rate 96 H 96 H Respiratory Rate 14 17 14 Blood Pressure 99/43 L Pulse Oximetry 99 99 99 03/24/18 07:00 03/24/18 07:50 Temperature 99.0 F Pulse Rate 100 H Respiratory Rate 20 25 H Blood Pressure 105/52 L Pulse Oximetry 97 Intake & Output 03/23/18 03/24/18 03/24/18 18:59 06:59 18:59 Intake Total 4310 / 4310 1698 / 1698 100 / 100 Output Total 5062 / 5062 2460 / 2460 Balance -752 / -752 -762 / -762 100 / 100 Weight 88.5 kg Intake: IV 1460 / 1460 1698 / 1698 100 / 100 DOBUTamine 250 MG/250 ML Premx 250 / 250 250 mg In 250 ml @ 5 MCG/KG/MIN 25.8 mls/hr IV.CONT .Q9H42M [facility] Rx#:[id number] Precedex Inj 200 MCG In NS Inj 50 / 50 48 / 48 48 ML @ 0.2 MCG/KG/HR 4.3 mls/ hr IV.CONT TITRATE PRN Rx#: [id number] Neosynephrine Inj 40 MG In NS 1000 / 1000 Inj 496 ML @ 40 MCG/MIN 30 mls/ hr IV.CONT TITRATE PRN Rx#: [id number] Ofirmev Inj 1,000 mg In 100 ml 100 / 100 100 / 100 100 / 100 @ 400 mls/hr IV.SIG Q6H [facility] Rx# :[id number] Buminate 5% Inj 250 ML @ 250 250 / 250 mls/hr IV.SIG UNSCH PRN Rx#: [id number] Calcium Chloride Inj 1 GM In NS 110 / 110 Inj 100 ML @ 100 mls/hr IV.SIG PRN PRN Rx#:[id number] LR 1000 mL Inj 1,000 ML @ 30 1000 / 1000 mls/hr IV.SIG .Q24H [facility] Rx#: [id number] KCl 20 mEq Premix Inj 20 meq In 100 / 100 100 ml @ 50 mls/hr IV.SIG PRN PRN Rx#:[id number] Ancef 2 GM Premix Inj 2 gm In 100 / 100 50 / 50 50 ml @ 100 mls/hr IV.SIG Q8H [facility] Rx#:[id number] Anesthesia Amount 2000 / 2000 Cell Saver Amount 850 / 850 Output: Estimated Blood Loss 1700 / 1700 Urine Amount (Catheter) 3280 / 3280 2170 / 2170 Indwelling Temp Sensing 3280 / 3280 2170 / 2170 Catheter Gastric Drainage 150 / 150 Orogastric Tube 150 / 150 Chest Tube Drainage 82 / 82 140 / 140 Anterior 82 / 82 140 / 140 Other: # Bowel Movements 0 - Urinary Catheter Management Indwelling Temp Sensing Catheter Cath placed during this visit: yes Reason for continuing: Hourly intake/output Insertion date: 03/23/18 Insertion time: 07:38 Assessment and Plan - Assessment (1) CAD (coronary artery disease) Code(s): I25.10 - Atherosclerotic heart disease of [place] coronary artery without angina pectoris Status: Acute (2) CAD (coronary artery disease) Code(s): I25.10 - Atherosclerotic heart disease of [place] coronary artery without angina pectoris Status: Acute (3) Acute non-ST elevation myocardial infarction (NSTEMI) Code(s): I21.4 - Non-ST elevation (NSTEMI) myocardial infarction Status: Acute (4) S/P CABG (coronary artery bypass graft) Code(s): Z95.1 - Presence of aortocoronary bypass graft Status: Acute (5) Status post carotid surgery Code(s): Z98.890 - Other specified postprocedural states Status: Acute (6) Stroke Code(s): I63.9 - Cerebral infarction, unspecified Status: Acute - Plan 1.) CAD - pod# 1 s/p cabg, on dobut, u/o > 500 cc/shift, extubated, on aspirin, plavix, lipitor, amio, iabp out, patient strongly advised to stop smoking and cocaine
[2018-03-24] MEDS: Senna/Docusate Sodium 8.6/50 MG Tablet PO SCH ×2 (10:38→21:47)
[2018-03-24] MEDS: Folic Acid 1 MG Tablet PO SCH (10:38)
[2018-03-24] MEDS: Multivitamin/Minerals Therapeutic Tablet PO SCH (10:45)
--- NOTE | 2018-03-24 11:04 | P.PNCV ---
- Note Subjective/Hospital Course: 52-year-old male transferred from [place] emergency department, who presented with chest pain after he was trying to unload a truck and had some acute central chest pain radiating to his neck with some shortness of breath. He was worked up in the emergency department and was found to have elevated troponins for a non-STEMI. He was transferred to the [facility] . He underwent cardiac catheterization 03/22/[address] Thomas which showed an ejection fraction of 25%, left main disease of 60% proximal LAD 95%, mid distal LAD 80%, circumflex was 95, the RCA 95. Intraaortic balloon pump was placed due to class IV CHF and his low ejection fraction. We were consulted for emergent coronary artery bypass graft. PMH: carotid artery disease, recent left carotid endarterectomy 08/2017 at [facility], history of asthma, seizure disorder, hiatal hernia, history of a recent CVA. residual left arm and left weakness, ETOH abuse 03/23 pt for surgery today 1. Urgent off-pump Coronary Artery Bypass Grafting x 4 with Left Internal Mammary Artery (ROJAS) to Left Anterior Descending (LAD), reverse saphenous vein graft to obtuse marginal branch of the left circumflex artery, reverse saphenous vein graft to the ramus marginalis, reverse saphenous vein graft to the diagonal 1 branch of the LAD 2. Right leg Endoscopic Vein [place] 3. Intraoperative Vein Mapping. 03/24 pt weaned of nicolas gtt this am , on dobutamine gtt at 2.5mcq very difficult to wean and extubate/ required fentanly and precedex pt was very agitated / uncooperative/ later calmed down and met extubation parameters extubated to nasal cannula 6 liters will need aggressive pulm toileting given dose of lasix this am , eval for BB this evening, since pt just weaned off Nicolas gtt add prn ativan for anxiety , add nabil arias , keep in CVICU for now IABP removed after surgery Objective: Vital Signs - 24 hr 03/23/18 14:00 03/23/18 14:03/23/18 15:00 Temperature 100 F H 100 F H Pulse Rate 95 H 95 H Respiratory Rate 32 H Blood Pressure 84/46 L Pulse Oximetry 93 L 93 L 03/23/18 16:00 03/23/18 16:26 03/23/18 17:44 Temperature 100.9 F H 100 F H Pulse Rate 103 H 97 H Respiratory Rate 16 24 Blood Pressure 102/60 Pulse Oximetry 96 03/23/18 20:00 03/23/18 21:51 03/24/18 00:00 Temperature 101.6 F H 100.9 F H Pulse Rate 98 H 102 H 113 H Respiratory Rate 25 H 24 17 Blood Pressure 129/68 87/54 L Pulse Oximetry 97 98 98 03/24/18 01:12 03/24/18 04:00 03/24/18 04:21 Temperature 98.8 F Pulse Rate 96 H 96 H Respiratory Rate 14 17 14 Blood Pressure 99/43 L Pulse Oximetry 99 99 99 03/24/18 07:00 03/24/18 07:50 Temperature 99.0 F Pulse Rate 100 H Respiratory Rate 20 25 H Blood Pressure 105/52 L Pulse Oximetry 97 GENERAL: less agitated after extubation SKIN: Warm and dry. prevena dressing in place to chest , bri wrap to right leg HEAD: Normocephalic. EYES: No scleral icterus. No injection or drainage. NECK: Supple, trachea midline. No JVD or lymphadenopathy. CARDIOVASCULAR: Regular rate and rhythm without murmurs, gallops, or rubs. RESPIRATORY: Breath sounds equal bilaterally. No accessory muscle use. diminished in bases , now on 6 liter nasal cannula , few basilar crackles chest tube to wall suction, no air leak / drained 140cc/ 12 hrs GASTROINTESTINAL: Abdomen soft, non-tender, nondistended. MUSCULOSKELETAL: No cyanosis, or edema. BACK: Nontender without obvious deformity. No CVA tenderness. Labs: Laboratory Results - last 12 hr 03/23/18 03/24/18 03/24/18 22:59 01:05 02:13 WBC RBC Hgb Hct MCV MCH MCHC RDW Plt Count MPV Neut % (Auto) Lymph % (Auto) [place] % (Auto) Eos % (Auto) Baso % (Auto) Neut # (Auto) Lymph # (Auto) [place] # (Auto) Eos # (Auto) Baso # (Auto) WBC Differential Differential Comment Sodium Potassium Chloride Carbon Dioxide Anion Gap BUN Creatinine Estimated GFR POC Glucose 105 125 H 121 H Random Glucose Calcium Phosphorus Magnesium 03/24/18 03/24/18 03/24/18 05:15 05:15 05:15 WBC 11.0 RBC 3.64 L Hgb 11.0 L D Hct 31.8 L MCV 87.2 MCH 30.1 MCHC 34.5 RDW 14.9 Plt Count 162 MPV 8.6 Neut % (Auto) 71.6 H Lymph % (Auto) 15.1 Lander % (Auto) 12.2 H Eos % (Auto) 0.6 Baso % (Auto) 0.5 Neut # (Auto) 7.9 H Lymph # (Auto) 1.7 Lander # (Auto) 1.3 H Eos # (Auto) 0.1 Baso # (Auto) 0.1 WBC Differential . Differential Comment Auto diff final Sodium 139 Potassium 4.1 Chloride 107 Carbon Dioxide 23.9 Anion Gap 8 BUN 8 Creatinine 0.97 Estimated GFR 81 L POC Glucose Random Glucose 63 L Calcium 8.0 L D Phosphorus 3.1 Magnesium 2.4 03/24/18 03/24/18 03/24/18 05:23 06:29 07:49 WBC RBC Hgb Hct MCV MCH MCHC RDW Plt Count MPV Neut % (Auto) Lymph % (Auto) [place] % (Auto) Eos % (Auto) Baso % (Auto) Neut # (Auto) Lymph # (Auto) [place]ander # (Auto) Eos # (Auto) Baso # (Auto) WBC Differential Differential Comment Sodium Potassium Chloride Carbon Dioxide Anion Gap BUN Creatinine Estimated GFR POC Glucose 62 L 80 86 Random Glucose Calcium Phosphorus Magnesium 03/24/18 09:11 WBC RBC Hgb Hct MCV MCH MCHC RDW Plt Count MPV Neut % (Auto) Lymph % (Auto) [place] % (Auto) Eos % (Auto) Baso % (Auto) Neut # (Auto) Lymph # (Auto) [place]ander # (Auto) Eos # (Auto) Baso # (Auto) WBC Differential Differential Comment Sodium Potassium Chloride Carbon Dioxide Anion Gap BUN Creatinine Estimated GFR POC Glucose 112 H Random Glucose Calcium Phosphorus Magnesium Result Diagrams: 03/24/18 05:15 03/24/18 05:15 EKG: SR with PAC/ PVC/ q wave inf leads - Plan (2) Asthma Plan: on nebs, may benefit from symbicort (3) Seizure Plan: pt not on meds at home (5) S/P CABG (coronary artery bypass graft) Plan: resume ASA, statin , plavix start BB this pm if SBP stable aggressive pulm toileting CV: -Evidence of pulmonary edema on chest x-ray, now improved with diuresis -Nicolas-Synephrine at 120 mcg/min, dobutamine 2.5 mcg/kg/min to maintain map above 65 and cardiac output -Diuresis with IV Lasix 40 mg yesterday, additional 20 mg IV today. -Continue amiodarone increase 400 mg twice daily. OOB will need pt assistance HHC at discharge (6) History of CVA (cerebrovascular accident) Plan: CVA 2 Right internal carotid artery occlusion chronic on ASA plavix
[2018-03-24] MEDS: Insulin NovoLOG Aspart Correctional Sugar Inj SQ SCH ×4 (11:45→22:43)
[2018-03-24] MEDS: Metoprolol Tartrate 25 MG Tablet PO SCH (13:03)
--- NOTE | 2018-03-24 13:56 | P.DIET ---
Nutritional Evaluation Screening comments: MDC for diet education s/p CABG x 4 on 03/23. Patient Navigator to provide education. Consult RD if complexities with diet education arise.
[2018-03-24] MEDS ORDERED: Metoprolol Tartrate 25 MG Tablet PO STA (16:23)
[2018-03-24] MEDS ORDERED: Etomidate Inj 20 MG/10 ML Ampul IV.PUSH ONE (16:54)
--- NOTE | 2018-03-24 17:22 | P.PCN ---
Date of procedure: 03/24/18 Pre-op diagnosis: Vfib arrest Post-op diagnosis: same Procedure: Endotracheal intubation Indication: V fib arrest, resp failure Patient receiving bag and mask ventilation. Induced with Etomidate 8 mg IV, Lidocaine 100 mg IV, Rocuronium 100 mg IV. Patient was adequately positioned and I entered oropharynx with GlideScope # 4 blade. A grade 1 view was obtained. Patient was intubated with #8.5 ET tube and confirmed with bilateral air entry, end-tidal CO2 color change. Chest x-ray is pending at this time. Anesthesia: GETA Surgeon: Jacky Goetz Pathology: none sent Condition: critical Disposition: ICU
[2018-03-24] MEDS ORDERED: Amiodarone Inj 150 MG in Dextrose 5% in Water Inj 97 ML IV.SIG ONE ×2 (17:28)
[2018-03-24] MEDS ORDERED: Midazolam 50 MG/50 ML Inj 50 MG/50 ML BAG IV.CONT PRN (17:35)
--- NOTE | 2018-03-24 17:35 | P.PCN ---
Date of procedure: 03/24/18 Pre-op diagnosis: V Fib arrest Post-op diagnosis: same Procedure: CPR Note: Patient developed V Fib arrest. CPR started per ACLS protocol, 1 amp epinephrine given. DCCV performed at 200 J with ROSC. CPR time about 4 min. Patient cooperative after ROSC, neuro intact but states cannot breath. Hypoxemic with Bag and mask ventilation. Emergently intubated and placed on mechanical ventilation. With induction V Fib again, DCCV x1 with ROSC. Nicolas- synephrine stated to maintain MAP. Amiodarone 150 mg IV bolus and infusion started. Dr. Santiago and patent's daughter updated Anesthesia: none Surgeon: Jacky Goetz Pathology: none sent Condition: critical Disposition: ICU
--- NOTE | 2018-03-24 17:53 | XR ---
EXAM DATE: 03/24/2018 5:50 PM EDT AGE/SEX: 52 years / Male INDICATIONS: Chest pain. CLINICAL DATA: This is the patient's subsequent encounter. Patient reports that signs and symptoms h ave been present for 1 day and indicates a pain score of Nonresponsive. MEDICAL/SURGICAL HISTORY: . Asthma. Hiatal hernia. Seizure. Stroke. Occlusion of right carotid artery. Hyperlipidemia. . Left carotid endarterectomy COMPARISON: . FINDINGS: The cardiac silhouette is enlarged in transverse diameter. Median sternotomy wires are present. Suppo rt lines and tubes are in satisfactory position. There is prominence of the central pulmonary vascula ture with indistinct vascular margins compatible with vascular congestion but no evidence of overt fa ilure. CONCLUSION: Cardiomegaly and findings of vascular congestion without overt failure. There has been no significant change when compared to the prior exam. Electronically signed by: Bryce Troncoso MD 03/24/2018 5:52 PM EDT
[2018-03-24 18:02] LABS: Alanine Aminotransferase 31 U/L (12-78); Albumin 2.6 g/dL (3.4-5.0); Alkaline Phosphatase 48 U/L (45-117); Anion Gap 11 meq/L (5-15); Aspartate Aminotransferase 65 U/L (15-37); Blood Urea Nitrogen 10 mg/dL (7-18); Calcium 7.8 mg/dL (8.5-10.1); Carbon Dioxide 20.8 meq/L (21.0-32.0); Chloride 106 meq/L (98-107); Glomerular Filtration Rate 58 mL/min (>89); Glucose,Random 185 mg/dL (74-106); Potassium 3.8 meq/L (3.5-5.1); Sodium 138 meq/L (136-145); Total Protein 5.6 g/dL (6.4-8.2)
[2018-03-24] MEDS ORDERED: RASS Change Order OTHER ONE (19:00)
[2018-03-24] MEDS ORDERED: Metoprolol Tartrate 25 MG Tablet PO SCH (21:00)
[2018-03-24] MEDS ORDERED: Docusate Sodium 100 MG Capsule PO SCH (21:00)
[2018-03-24] MEDS: Amiodarone 200 MG Tablet PO SCH (21:47)
[2018-03-24] MEDS: Docusate Sodium 100 MG Capsule PO SCH (21:47)
[2018-03-25] MEDS: Insulin NovoLOG Aspart Correctional Sugar Inj SQ SCH ×6 (02:46→23:02)
[2018-03-25] MEDS: Phenylephrine Inj 40 MG in Sodium Chlor 0.9% Inj 496 ML IV.CONT PRN ×3 (04:00→21:30)
[2018-03-25 04:17] LABS: Baso # (Auto) 0.1 th/mm3 (0.0-0.2); Baso % (Auto) 0.7 % (0.0-2.0); Eos # (Auto) 0.2 th/mm3 (0.0-0.4); Eos % (Auto) 1.3 % (0.0-4.0); Hematocrit 30.5 % (39.0-51.0); Hemoglobin 10.4 gm/dL (13.0-17.0); Lymph # (Auto) 1.6 th/mm3 (1.0-4.8); Lymph % (Auto) 12.8 % (9.0-44.0); Mean Corpuscular HGB Conc 34.3 % (32.0-36.0); Mean Corpuscular Hemoglobin 30.4 pg (27.0-34.0); Mean Corpuscular Volume 88.7 fL (80.0-100.0); Mean Platelet Volume 8.8 fL (7.0-11.0); Mono # (Auto) 1.2 th/mm3 (0.0-0.9); Neut # (Auto) 9.3 th/mm3 (1.8-7.7); Neut % (Auto) 75.2 % (16.0-70.0); Platelet Count 170 th/mm3 (150-450); Red Blood Count 3.43 mil/mm3 (4.50-5.90); Red Cell Distribution Width 15.1 % (11.6-17.2); White Blood Count 12.4 th/mm3 (4.0-11.0)
[2018-03-25 04:45] LABS: Calcium 8.1 mg/dL (8.5-10.1); Carbon Dioxide 26.6 meq/L (21.0-32.0); Magnesium 1.9 mg/dL (1.5-2.5)
[2018-03-25] MEDS: Dexmedetomidine Inj 200 MCG in Sodium Chlor 0.9% Inj 48 ML IV.CONT PRN ×4 (06:10→18:38)
[2018-03-25 06:12] LABS: ABG Base Excess -2.5 mmol/L (-2-2); ABG PCO2 35 mmHg (38-42); ABG PO2 70 mmHG (61-120)
--- NOTE | 2018-03-25 06:13 | XR ---
EXAM DATE: 03/25/2018 5:39 AM EDT AGE/SEX: 52 years / Male INDICATIONS: Shortness of breath, possible pulmonary disease. CLINICAL DATA: This is the patient's subsequent encounter. Patient reports that signs and symptoms h ave been present for 2 days and indicates a pain score of Nonresponsive. MEDICAL/SURGICAL HISTORY: . Asthma. Hiatal hernia. Seizure. Stroke CABG. Carotid endarterecto my. COMPARISON: [facility], CHEST 1V SINGLE AP, 03/24/2018. . FINDINGS: Stable ETT, NGT, right IJ central line, mediastinal drain and left apical chest tube. No significant pneumothorax. Interval development of patchy bilateral perihilar opacities and bilateral lower lung z one airspace disease. Cardiomediastinal contours are stable. Remainder of the exam is unchanged. CONCLUSION: 1. Stable tubes and lines. 2. Worsening pulmonary edema pattern. 3. Bibasilar airspace disease, likely atelectasis. Electronically signed by: Jesus Pool MD 03/25/2018 6:12 AM EDT
--- NOTE | 2018-03-25 06:56 | P.PNCC ---
Subjective Subjective Remarks/Hospital Course: A 52-year-old male with past medical history significant for stroke 2, occluded right internal carotid artery, continued tobacco use, asthma, seizure disorder who presented to the emergency department with chest pain. ER workup showed elevated troponin and he ruled in for a non-ST elevation OR. He underwent cardiac catheterization 03/[address] Thomas which showed an ejection fraction of 25%, left main disease of 60% proximal LAD 95%, mid distal LAD 80%, circumflex was 95, the RCA 95. Intraaortic balloon pump was placed and CTS consulted for emergent coronary artery bypass graft. Patient underwent urgent off-pump Coronary Artery Bypass Grafting x 4 with Left Internal Mammary Artery to Left Anterior Descending, reverse saphenous vein graft to obtuse marginal branch of the left circumflex artery, reverse saphenous vein graft to the ramus marginalis, reverse saphenous vein graft to the diagonal 1 branch of the LAD. Apparently airway was anterior and glide scope was used for intubation. Post op patient was moved to the CVICU where I met him. Patient is currently sedated with 1.5 mcg/kg/h Precedex. Currently on Nicolas-Synephrine 60 mcg/min to maintain MAP above 65. There was dysfunction of intra-aortic balloon pump and this was subsequently removed by Dr. Santiago. Due to hypotension Nicolas-Synephrine was titrated up and patient was started on dobutamine at 2.5 mcg/kg/min. CXR was reviewed, showed bilateral pulmonary edema. Will increase nicolas to improve MAP , increase Dobutamine to 5 mcg/kg/min and then give Lasix 40 mg IVP STAT 03/24: Sedated with propofol. Remains on Dobutamine 2.5 mcg/kg/min and Nicolas at 120 mcg/ kg/min. UO 3.2 L after 40 mg IVP of Lasix. Wakes up and follows commands. O2 sats improved 03/25: Patient was extubated yesterday tolerated well initially. However around 4:30 PM patient developed V. fib arrest while being transferred from chair to bed. Patient was shocked twice intubated and placed on mechanical ventilation. See CPR procedure note. Postintubation chest x-ray showed pulmonary edema. Patient received 80 mg Lasix IV with good diuresis. He was started on amiodarone infusion. Currently chest x-ray shows persistent pulmonary edema. Currently he is on Nicolas-Synephrine 80 mcg/min. I have started him on scheduled Lasix with potassium replacement. Also will start on milrinone for inotropic given ejection fraction of approximately 20-25% and severe pulmonary edema Objective Vital Signs / I&O: Vital Signs 03/24/18 07:00 03/24/18 07:50 03/24/18 08:10 Temperature 99.0 F 99.9 F H Pulse Rate 100 H Respiratory Rate 20 25 H Blood Pressure 105/52 L Pulse Oximetry 97 03/24/18 09:00 03/24/18 11:00 03/24/18 12:37 Temperature 98.8 F Pulse Rate 108 H Respiratory Rate 20 Blood Pressure 137/72 Pulse Oximetry 96 96 94 L 03/24/18 14:28 03/24/18 15:00 03/24/18 17:30 Temperature 99.1 F Pulse Rate 118 H 120 H Respiratory Rate 16 22 20 Blood Pressure 128/62 Pulse Oximetry 88 L 99 03/24/18 17:53 03/24/18 19:00 03/24/18 19:45 Temperature 98.2 F 98.2 F Pulse Rate 90 Respiratory Rate 14 18 Blood Pressure 109/52 L Pulse Oximetry 88 L 100 03/24/18 20:00 03/24/18 21:00 03/24/18 22:00 Temperature Pulse Rate Respiratory Rate Blood Pressure Pulse Oximetry 100 99 99 03/24/18 22:15 03/24/18 22:28 03/24/18 23:00 Temperature 99.8 F H Pulse Rate 82 79 Respiratory Rate 17 17 17 Blood Pressure 114/65 Pulse Oximetry 99 99 03/25/18 00:50 03/25/18 03:06 03/25/18 03:08 Temperature Pulse Rate Respiratory Rate 17 17 Blood Pressure Pulse Oximetry 99 99 03/25/18 03:09 03/25/18 03:50 03/25/18 04:42 Temperature 100.3 F H Pulse Rate 88 79 Respiratory Rate 17 17 Blood Pressure 142/88 H Pulse Oximetry 97 Intake & Output 03/24/18 03/24/18 03/25/18 06:59 18:59 06:59 Intake Total 1698 / 1698 2094 / 2094 1302 / 1302 Output Total 2460 / 2460 1265 / 1265 Balance -762 / -762 829 / 829 1302 / 1302 Weight 88.5 kg Intake: IV 1698 / 1698 1594 / 1594 1302 / 1302 Cordarone Inj 450 MG In D5W Inj 200 / 200 241 ML @ 1 MG/MIN 33.33 mls/hr IV.CONT TITRATE PRN Rx#: [id number] DOBUTamine 250 MG/250 ML Premx 250 / 250 380 / 380 250 mg In 250 ml @ 5 MCG/KG/MIN 25.8 mls/hr IV.CONT .Q9H42M [facility] Rx#:[id number] Precedex Inj 200 MCG In NS Inj 48 / 48 48 ML @ 0.2 MCG/KG/HR 4.3 mls/ hr IV.CONT TITRATE PRN Rx#: [id number] Neosynephrine Inj 40 MG In NS 1000 / 1000 1294 / 1294 472 / 472 Inj 496 ML @ 40 MCG/MIN 30 mls/ hr IV.CONT TITRATE PRN Rx#: [id number] Diprivan 1000 mg/100 ml Inj 1, 100 / 100 000 mg In 100 ml @ 5 MCG/KG/MIN 2.58 mls/hr IV.CONT TITRATE PRN Rx#:[id number] Ofirmev Inj 1,000 mg In 100 ml 100 / 100 200 / 200 @ 400 mls/hr IV.SIG Q6H [facility] Rx# :[id number] Buminate 5% Inj 250 ML @ 250 250 / 250 mls/hr IV.SIG UNSCH PRN Rx#: [id number] Ancef 2 GM Premix Inj 2 gm In 50 / 50 100 / 100 50 / 50 50 ml @ 100 mls/hr IV.SIG Q8H [facility] Rx#:[id number] Oral 500 / 500 Output: Urine Amount (Catheter) 2170 / 2170 1125 / 1125 Indwelling Temp Sensing 2170 / 2170 1125 / 1125 Catheter Gastric Drainage 150 / 150 Orogastric Tube 150 / 150 Chest Tube Drainage 140 / 140 140 / 140 Anterior 140 / 140 140 / 140 Other: # Bowel Movements 0 Result Diagrams: 03/25/18 03:57 03/25/18 03:57 Objective Remarks: GENERAL: This is a well-nourished, well-developed patient, intubated sedated with Versed and fentanyl CARDIOVASCULAR: Midline CABG incision dressing intact, C/D/I. Currently on Nicolas- Synephrine 80 mcg/min, amiodarone GTT RESPIRATORY: Air entry diminished bilaterally at the bases, with few basilar crackles GASTROINTESTINAL: Abdomen soft, non-tender, nondistended. Normal active bowel sounds MUSCULOSKELETAL: Extremities without clubbing, cyanosis, or edema. Right groin site without hematoma where IABP was removed NEURO: Intubated sedated heavily for ventilator synchrony. On lightening sedation patient able to follow commands weekly. No focal deficits by limited exam Assessment and Plan - Assessment and Plan Plan: ASSESSMENT: Ventricular fibrillation cardiac arrest Severe pulmonary edema Acute non-ST elevation OR status post CABG Acute exacerbation of systolic heart failure Cardiogenic shock Acute hypoxemic respiratory failure Severe multivessel coronary artery disease CVA 2 Right internal carotid artery occlusion chronic Tobacco abuse PLAN: NEURO: -Versed/fentanyl for sedation and to facilitate ventilator weaning -As needed for pain control per CV orders -Start Precedex to facilitate weaning trials RESP: -Hypoxemic respiratory failure seems to be secondary to pulmonary edema, improving -Diuresis and inotropic agents as below -Currently on PRVC/PEEP 8. No SBT until pulmonary edema is improved -Ventilator bundle. DuoNeb scheduled and as needed -Some signs of anterior airway. Intubated yesterday with glide scope Grade 1 view CV: -Chest x-ray shows severe pulmonary edema -Start scheduled Lasix 40 mg IV every 8 hours with potassium supplementation -Start milrinone at 0.25 mcg/kg/min, Flowtrack monitoring -Nicolas-Synephrine at 80 mcg/min -Continue amiodarone gtt per protocol. Hold off beta blockers due to hypotension -Resumed aspirin and Plavix 03/24/2018 -Lipitor 80 mg nightly GI: -N.p.o., IV PPI 40 q12 : -Monitor renal function closely. Garcia catheter. -IV Lasix as above ID: -Perioperative antibiotics per cardiothoracic surgery HEME: -Monitor CBC, coags ENDO: -Electrolyte replacement per protocol -IV insulin per CVICU protocol PROPH: -PPI, chemical DVT prophylaxis when cleared by cardiothoracic surgery CC time 77 min discontinuously
[2018-03-25] MEDS: Milrinone Inj 20 MG in Sodium Chlor 0.9% Inj 80 ML IV.CONT SCH ×2 (07:44→21:29)
[2018-03-25] MEDS: Pantoprazole Inj 40 MG Vial IV.PUSH SCH ×2 (07:49→18:38)
[2018-03-25] MEDS ORDERED: Polyethylene Glycol 3350 17 GM Packet PO SCH (09:00)
[2018-03-25] MEDS: Folic Acid 1 MG Tablet PO SCH (09:22)
[2018-03-25] MEDS: Docusate Sodium 100 MG Capsule PO SCH ×2 (09:23→21:27)
[2018-03-25] MEDS: Potassium Chloride 20 MEQ Pwd Pkt NG/OG SCH ×2 (09:23→21:27)
[2018-03-25] MEDS: Polyethylene Glycol 3350 17 GM Packet PO SCH (09:23)
[2018-03-25] MEDS: Multivitamin/Minerals Therapeutic Tablet PO SCH (09:24)
[2018-03-25] MEDS: Senna/Docusate Sodium 8.6/50 MG Tablet PO SCH ×2 (09:24→21:28)
[2018-03-25] MEDS: Mupirocin 2% Nasal Oint Topical Syringe EACH NARE SCH ×2 (09:24→21:26)
--- NOTE | 2018-03-25 10:26 | P.PNCV ---
- Note Subjective/Hospital Course: 52-year-old male transferred from [place] emergency department, who presented with chest pain after he was trying to unload a truck and had some acute central chest pain radiating to his neck with some shortness of breath. He was worked up in the emergency department and was found to have elevated troponins for a non-STEMI. He was transferred to the [facility] . He underwent cardiac catheterization 03/22/[address] Thomas which showed an ejection fraction of 25%, left main disease of 60% proximal LAD 95%, mid distal LAD 80%, circumflex was 95, the RCA 95. Intraaortic balloon pump was placed due to class IV CHF and his low ejection fraction. We were consulted for emergent coronary artery bypass graft. PMH: carotid artery disease, recent left carotid endarterectomy 08/2017 at [facility], history of asthma, seizure disorder, hiatal hernia, history of a recent CVA. residual left arm and left weakness, ETOH abuse 03/23 pt for surgery today 1. Urgent off-pump Coronary Artery Bypass Grafting x 4 with Left Internal Mammary Artery (ROJAS) to Left Anterior Descending (LAD), reverse saphenous vein graft to obtuse marginal branch of the left circumflex artery, reverse saphenous vein graft to the ramus marginalis, reverse saphenous vein graft to the diagonal 1 branch of the LAD 2. Right leg Endoscopic Vein [place] 3. Intraoperative Vein Mapping. 03/24 pt weaned of nicolas gtt this am , on dobutamine gtt at 2.5mcq very difficult to wean and extubate/ required fentanly and precedex pt was very agitated / uncooperative/ later calmed down and met extubation parameters extubated to nasal cannula 6 liters will need aggressive pulm toileting given dose of lasix this am , eval for BB this evening, since pt just weaned off Nicolas gtt add prn ativan for anxiety , add nabil arias , keep in CVICU for now IABP removed after surgery 03/25 Events from yesterday noted. Greatly appreciate ring rolling machine operator input and assistance. Patient presently intubated and mechanically ventilated. Awakens and responds appropriately to verbal commands. No apparent neurologic deficit. 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 May need EP study prior to discharge. Will need LifeVest given his underlying cardiomyopathy. Had a lengthy discussion with his daughter, Leia, and her boyfriend regarding his clinical findings and all questions were answered. Objective: Vital Signs - 24 hr 03/24/18 11:00 03/24/18 12:37 03/24/18 14:28 Temperature 98.8 F Pulse Rate 108 H 118 H Respiratory Rate 20 16 Blood Pressure 137/72 Pulse Oximetry 96 94 L 03/24/18 15:00 03/24/18 17:30 03/24/18 17:53 Temperature 99.1 F Pulse Rate 120 H Respiratory Rate 22 20 14 Blood Pressure 128/62 Pulse Oximetry 88 L 99 88 L 03/24/18 19:00 03/24/18 19:45 03/24/18 20:00 Temperature 98.2 F 98.2 F Pulse Rate 90 Respiratory Rate 18 Blood Pressure 109/52 L Pulse Oximetry 100 100 03/24/18 21:00 03/24/18 22:00 03/24/18 22:15 Temperature Pulse Rate 82 Respiratory Rate 17 Blood Pressure Pulse Oximetry 99 99 99 03/24/18 22:28 03/24/18 23:00 03/25/18 00:50 Temperature 99.8 F H Pulse Rate 79 Respiratory Rate 17 17 17 Blood Pressure 114/65 Pulse Oximetry 99 99 03/25/18 03:06 03/25/18 03:08 03/25/18 03:09 Temperature 100.3 F H Pulse Rate 88 Respiratory Rate 17 17 Blood Pressure 142/88 H Pulse Oximetry 99 03/25/18 03:50 03/25/18 04:42 03/25/18 07:00 Temperature 100.1 F H Pulse Rate 79 86 Respiratory Rate 17 16 Blood Pressure 97/51 L Pulse Oximetry 97 96 03/25/18 07:35 Temperature Pulse Rate Respiratory Rate 16 Blood Pressure Pulse Oximetry 95 Labs: Laboratory Results - last 12 hr 03/22/18 03/24/18 03/25/18 21:40 22:35 01:56 WBC RBC Hgb Hct MCV MCH MCHC RDW Plt Count MPV Neut % (Auto) Lymph % (Auto) [place] % (Auto) Eos % (Auto) Baso % (Auto) Neut # (Auto) Lymph # (Auto) [place] # (Auto) Eos # (Auto) Baso # (Auto) WBC Differential Differential Comment Puncture Site Patient Temperature O2 Saturation ABG pH ABG pCO2 ABG pO2 ABG HCO3 ABG O2 Content ABG Base Excess ABG Methemoglobin Hemoglobin Carboxyhemoglobin O2 Delivery Device Vent Setting Inspired O2 Critical Value Sodium Potassium Chloride Carbon Dioxide Anion Gap BUN Creatinine Estimated GFR POC Glucose 145 H 111 H Random Glucose Calcium Magnesium MTS Gel Crossmatch See Detail 03/25/18 03/25/18 03/25/18 03:57 03:57 05:50 WBC 12.4 H RBC 3.43 L Hgb 10.4 L Hct 30.5 L MCV 88.7 MCH 30.4 MCHC 34.3 RDW 15.1 Plt Count 170 MPV 8.8 Neut % (Auto) 75.2 H Lymph % (Auto) 12.8 [place] % (Auto) 10.0 H Eos % (Auto) 1.3 Baso % (Auto) 0.7 Neut # (Auto) 9.3 H Lymph # (Auto) 1.6 [place] # (Auto) 1.2 H Eos # (Auto) 0.2 Baso # (Auto) 0.1 WBC Differential . Differential Comment Auto diff final Puncture Site Art line Patient Temperature 98.6 O2 Saturation 91 ABG pH 7.40 ABG pCO2 35 L ABG pO2 70 ABG HCO3 21 L ABG O2 Content 13.5 ABG Base Excess -2.5 L ABG Methemoglobin 1.3 Hemoglobin 10.6 L Carboxyhemoglobin 1.2 O2 Delivery Device Ventilator Vent Setting Prvc/ac Inspired O2 40 Critical Value No Sodium 138 Potassium 4.0 Chloride 105 Carbon Dioxide 26.6 Anion Gap 6 BUN 12 Creatinine 1.08 Estimated GFR 71 L POC Glucose Random Glucose 117 H Calcium 8.1 L Magnesium 1.9 MTS Gel Crossmatch 03/25/18 03/25/18 06:37 09:00 WBC RBC Hgb Hct MCV MCH MCHC RDW Plt Count MPV Neut % (Auto) Lymph % (Auto) [place] % (Auto) Eos % (Auto) Baso % (Auto) Neut # (Auto) Lymph # (Auto) [place] # (Auto) Eos # (Auto) Baso # (Auto) WBC Differential Differential Comment Puncture Site Patient Temperature O2 Saturation ABG pH ABG pCO2 ABG pO2 ABG HCO3 ABG O2 Content ABG Base Excess ABG Methemoglobin Hemoglobin Carboxyhemoglobin O2 Delivery Device Vent Setting Inspired O2 Critical Value Sodium Potassium Chloride Carbon Dioxide Anion Gap BUN Creatinine Estimated GFR POC Glucose 136 H 142 H Random Glucose Calcium Magnesium MTS Gel Crossmatch Result Diagrams: 03/25/18 03:57 03/25/18 03:57 - Plan (2) Asthma Plan: on nebs, may benefit from symbicort (3) Seizure Plan: pt not on meds at home (5) S/P CABG (coronary artery bypass graft) Plan: resume ASA, statin , plavix start BB this pm if SBP stable aggressive pulm toileting CV: -Evidence of pulmonary edema on chest x-ray, now improved with diuresis -Nicolas-Synephrine at 120 mcg/min, dobutamine 2.5 mcg/kg/min to maintain map above 65 and cardiac output -Diuresis with IV Lasix 40 mg yesterday, additional 20 mg IV today. -Continue amiodarone increase 400 mg twice daily. OOB will need pt assistance HHC at discharge (6) History of CVA (cerebrovascular accident) Plan: CVA 2 Right internal carotid artery occlusion chronic on ASA plavix
--- NOTE | 2018-03-25 13:47 | P.PNCA ---
Subjective Interval history: intubated, sedated, restrained Physical Exam Vital signs: Vital Signs 03/24/18 14:28 03/24/18 15:00 03/24/18 17:30 Temperature 99.1 F Pulse Rate 118 H 120 H Respiratory Rate 16 22 20 Blood Pressure 128/62 Pulse Oximetry 88 L 99 03/24/18 17:53 03/24/18 19:00 03/24/18 19:45 Temperature 98.2 F 98.2 F Pulse Rate 90 Respiratory Rate 14 18 Blood Pressure 109/52 L Pulse Oximetry 88 L 100 03/24/18 20:00 03/24/18 21:00 03/24/18 22:00 Temperature Pulse Rate Respiratory Rate Blood Pressure Pulse Oximetry 100 99 99 03/24/18 22:15 03/24/18 22:28 03/24/18 23:00 Temperature 99.8 F H Pulse Rate 82 79 Respiratory Rate 17 17 17 Blood Pressure 114/65 Pulse Oximetry 99 99 03/25/18 00:50 03/25/18 03:06 03/25/18 03:08 Temperature Pulse Rate Respiratory Rate 17 17 Blood Pressure Pulse Oximetry 99 99 03/25/18 03:09 03/25/18 03:50 03/25/18 04:42 Temperature 100.3 F H Pulse Rate 88 79 Respiratory Rate 17 17 Blood Pressure 142/88 H Pulse Oximetry 97 03/25/18 07:00 03/25/18 07:35 03/25/18 10:05 Temperature 100.1 F H Pulse Rate 86 Respiratory Rate 16 16 21 Blood Pressure 97/51 L Pulse Oximetry 96 95 100 03/25/18 11:00 03/25/18 13:05 Temperature 100.5 F H Pulse Rate 81 76 Respiratory Rate 16 16 Blood Pressure 98/54 L Pulse Oximetry 98 Intake & Output 03/24/18 03/25/18 03/25/18 18:59 06:59 18:59 Intake Total 2094 / 2094 1302 / 1302 600 / 600 Output Total 1265 / 1265 1735 / 1735 Balance 829 / 829 -433 / -433 600 / 600 Weight 91 kg Intake: IV 1594 / 1594 1302 / 1302 600 / 600 Cordarone Inj 450 MG In D5W Inj 200 / 200 241 ML @ 1 MG/MIN 33.33 mls/hr IV.CONT TITRATE PRN Rx#: [id number] DOBUTamine 250 MG/250 ML Premx 380 / 380 250 mg In 250 ml @ 5 MCG/KG/MIN 25.8 mls/hr IV.CONT .Q9H42M STACY Rx#:[id number] Precedex Inj 200 MCG In NS Inj 100 / 100 48 ML @ 0.2 MCG/KG/HR 4.42 mls/ hr IV.CONT TITRATE PRN Rx#: [id number] Neosynephrine Inj 40 MG In NS 1294 / 1294 472 / 472 500 / 500 Inj 496 ML @ 40 MCG/MIN 30 mls/ hr IV.CONT TITRATE PRN Rx#: [id number] Diprivan 1000 mg/100 ml Inj 1, 100 / 100 000 mg In 100 ml @ 5 MCG/KG/MIN 2.58 mls/hr IV.CONT TITRATE PRN Rx#:[id number] Ofirmev Inj 1,000 mg In 100 ml 200 / 200 @ 400 mls/hr IV.SIG Q6H STACY Rx# :[id number] Ancef 2 GM Premix Inj 2 gm In 100 / 100 50 / 50 50 ml @ 100 mls/hr IV.SIG Q8H STACY Rx#:[id number] Oral 500 / 500 Output: Urine Amount (Catheter) 1125 / 1125 1540 / 1540 Indwelling Temp Sensing 1125 / 1125 1540 / 1540 Catheter Gastric Drainage 125 / 125 Orogastric Tube 125 / 125 Chest Tube Drainage 140 / 140 70 / 70 Anterior 140 / 140 70 / 70 - Urinary Catheter Management Indwelling Temp Sensing Catheter Cath placed during this visit: yes Reason for continuing: Hourly intake/output Insertion date: 03/23/18 Insertion time: 07:38 Assessment and Plan - Assessment (1) CAD (coronary artery disease) Code(s): I25.10 - Atherosclerotic heart disease of viejas coronary artery without angina pectoris Status: Acute (2) CAD (coronary artery disease) Code(s): I25.10 - Atherosclerotic heart disease of viejas coronary artery without angina pectoris Status: Acute (3) Acute non-ST elevation myocardial infarction (NSTEMI) Code(s): I21.4 - Non-ST elevation (NSTEMI) myocardial infarction Status: Acute (4) S/P CABG (coronary artery bypass graft) Code(s): Z95.1 - Presence of aortocoronary bypass graft Status: Acute (5) Status post carotid surgery Code(s): Z98.890 - Other specified postprocedural states Status: Acute (6) Stroke Code(s): I63.9 - Cerebral infarction, unspecified Status: Acute - Plan 1.) CAD - pod# 2 s/p cabg, vf x epi and cv yest. intubated, on , mil, amio and getting diuresed, d/w nurseNevaeh, continue aspirin, plavix, lipitor, amio , iabp out, patient strongly advised to stop smoking and cocaine
[2018-03-25 14:20] LABS: Alanine Aminotransferase 25 U/L (12-78); Albumin 2.4 g/dL (3.4-5.0); Anion Gap 7 meq/L (5-15); Aspartate Aminotransferase 39 U/L (15-37); Blood Urea Nitrogen 13 mg/dL (7-18); Calcium 7.8 mg/dL (8.5-10.1); Carbon Dioxide 27.8 meq/L (21.0-32.0); Chloride 104 meq/L (98-107); Glomerular Filtration Rate 74 mL/min (>89); Glucose,Random 104 mg/dL (74-106); Magnesium 2.1 mg/dL (1.5-2.5); Potassium 3.9 meq/L (3.5-5.1); Sodium 139 meq/L (136-145)
[2018-03-25 14:23] LABS: Alkaline Phosphatase 45 U/L (45-117); Total Protein 5.6 g/dL (6.4-8.2)
--- NOTE | 2018-03-25 15:07 | ECG ---
Date Performed: 03/24/2018 Time Performed: 03:03:54 PTAGE: 52 years EKG: Sinus rhythm with bigeminal PVCs Extensive ST-T changes may be due to myocardial ischemia Since previous tracing, no significant change noted Abnormal ECG PREVIOUS TRACING : 03/22/2018 11.13 DOCTOR: Hesham Thomas Interpretating Date/Time 03/25/2018 15:05:21
--- NOTE | 2018-03-25 15:07 | ECG ---
Date Performed: 03/24/2018 Time Performed: 17:25:44 PTAGE: 52 years EKG: Sinus tachycardia. Extensive T wave changes are nonspecific Since previous tracing, no sign ificant change noted Borderline ECG PREVIOUS TRACING : 03/24/2018 03.03.54 DOCTOR: Hesham Thomas Interpretating Date/Time 03/25/2018 15:07:08
--- NOTE | 2018-03-25 15:16 | XR ---
EXAM DATE: 03/25/2018 2:47 PM EDT AGE/SEX: 52 years / Male INDICATIONS: Short of breath. CLINICAL DATA: This is the patient's subsequent encounter. Patient reports that signs and symptoms h ave been present for 2 days and indicates a pain score of Nonresponsive. MEDICAL/SURGICAL HISTORY: Asthma. Hiatal hernia. Seizure. Stroke CABG. Carotid endarterectom y COMPARISON: [facility], CHEST 1V SINGLE AP, 03/25/2018. . FINDINGS: Lines and tubes have not changed. Slight cardiomegaly is seen not changed and perivascular pulmonary edema has slightly improved with moderate edema remaining. CONCLUSION: Mild improvement in the aeration of the lungs. Electronically signed by: Tammy Castellano MD 03/25/2018 3:15 PM EDT
[2018-03-25] MEDS: DEXMEDETOMIDINE IV.CONT PRN (23:00)
[2018-03-25] MEDS: SODIUM CHLOR 0.9% IV.CONT PRN (23:00)
[2018-03-26 04:46] LABS: Hemoglobin 9.6 gm/dL (13.0-17.0); Mean Corpuscular HGB Conc 34.3 % (32.0-36.0); Mean Corpuscular Hemoglobin 30.1 pg (27.0-34.0); Mean Corpuscular Volume 87.7 fL (80.0-100.0); Mean Platelet Volume 8.5 fL (7.0-11.0); Platelet Count 204 th/mm3 (150-450); Red Cell Distribution Width 14.7 % (11.6-17.2); White Blood Count 9.1 th/mm3 (4.0-11.0)
--- NOTE | 2018-03-26 04:56 | XR ---
EXAM DATE: 03/26/2018 4:36 AM EDT AGE/SEX: 52 years / Male INDICATIONS: Shortness of breath, possible pulmonary disease. CLINICAL DATA: This is the patient's subsequent encounter. Patient reports that signs and symptoms h ave been present for 3 days and indicates a pain score of Nonresponsive. MEDICAL/SURGICAL HISTORY: . Asthma. Hiatal hernia. Seizure. Stroke Carotid endarterectomy. C ABG. COMPARISON: [facility], CHEST 1V SINGLE AP, 03/25/2018. . FINDINGS: Stable ETT, NGT, right IJ central line, mediastinal drain and left apical chest tube. Continued impro ving patchy bilateral lower lung zone airspace disease. No significant pneumothorax. Cardiomediastina l contours are stable. Remainder of the exam is unchanged. CONCLUSION: 1. Stable tubes and lines, as above. 2. Continued improving aeration of the lungs. Electronically signed by: Jesus Pool MD 03/26/2018 4:55 AM EDT
[2018-03-26 05:10] LABS: Albumin 2.2 g/dL (3.4-5.0); Anion Gap 7 meq/L (5-15); Aspartate Aminotransferase 44 U/L (15-37); Blood Urea Nitrogen 17 mg/dL (7-18); Calcium 8.1 mg/dL (8.5-10.1); Carbon Dioxide 27.8 meq/L (21.0-32.0); Chloride 104 meq/L (98-107); Glomerular Filtration Rate 70 mL/min (>89); Glucose,Random 109 mg/dL (74-106); Magnesium 2.3 mg/dL (1.5-2.5); Sodium 139 meq/L (136-145)
[2018-03-26 05:11] LABS: Alanine Aminotransferase 23 U/L (12-78)
[2018-03-26 05:13] LABS: Alkaline Phosphatase 44 U/L (45-117); Total Protein 5.6 g/dL (6.4-8.2)
[2018-03-26] MEDS: Pantoprazole Inj 40 MG Vial IV.PUSH SCH ×2 (06:09→18:08)
--- NOTE | 2018-03-26 07:01 | P.PNCC ---
Subjective Subjective Remarks/Hospital Course: A 52-year-old male with past medical history significant for stroke 2, occluded right internal carotid artery, continued tobacco use, asthma, seizure disorder who presented to the emergency department with chest pain. ER workup showed elevated troponin and he ruled in for a non-ST elevation [place]. He underwent cardiac catheterization 03/[address] Thomas which showed an ejection fraction of 25%, left main disease of 60% proximal LAD 95%, mid distal LAD 80%, circumflex was 95, the RCA 95. Intraaortic balloon pump was placed and CTS consulted for emergent coronary artery bypass graft. Patient underwent urgent off-pump Coronary Artery Bypass Grafting x 4 with Left Internal Mammary Artery to Left Anterior Descending, reverse saphenous vein graft to obtuse marginal branch of the left circumflex artery, reverse saphenous vein graft to the ramus marginalis, reverse saphenous vein graft to the diagonal 1 branch of the LAD. Apparently airway was anterior and glide scope was used for intubation. Post op patient was moved to the CVICU where I met him. Patient is currently sedated with 1.5 mcg/kg/h Precedex. Currently on Nicolas-Synephrine 60 mcg/min to maintain MAP above 65. There was dysfunction of intra-aortic balloon pump and this was subsequently removed by Dr. Santiago. Due to hypotension Nicolas-Synephrine was titrated up and patient was started on dobutamine at 2.5 mcg/kg/min. CXR was reviewed, showed bilateral pulmonary edema. Will increase nicolas to improve MAP , increase Dobutamine to 5 mcg/kg/min and then give Lasix 40 mg IVP STAT 03/24: Sedated with propofol. Remains on Dobutamine 2.5 mcg/kg/min and Nicolas at 120 mcg/ kg/min. UO 3.2 L after 40 mg IVP of Lasix. Wakes up and follows commands. O2 sats improved 03/25: Patient was extubated yesterday tolerated well initially. However around 4:30 PM patient developed V. fib arrest while being transferred from chair to bed. Patient was shocked twice intubated and placed on mechanical ventilation. See CPR procedure note. Postintubation chest x-ray showed pulmonary edema. Patient received 80 mg Lasix IV with good diuresis. He was started on amiodarone infusion. Currently chest x-ray shows persistent pulmonary edema. Currently he is on Nicolas-Synephrine 80 mcg/min. I have started him on scheduled Lasix with potassium replacement. Also will start on milrinone for inotropic given ejection fraction of approximately 20-25% and severe pulmonary edema 03/26: Remains critical but showing some signs of improvement. Achieving good diuresis and negative balance. CVP 11. Give additional 20 mg Lasix now, add Aldactone, increase milrinone to 0.375 mcg/kg/min. Start weaning trials. CXR show persistent but improving pulmonary edema Objective Vital Signs / I&O: Vital Signs 03/25/18 07:00 03/25/18 07:35 03/25/18 10:05 Temperature 100.1 F H Pulse Rate 86 Respiratory Rate 16 16 21 Blood Pressure 97/51 L Pulse Oximetry 96 95 100 03/25/18 11:00 03/25/18 13:05 03/25/18 15:00 Temperature 100.5 F H 100.0 F H Pulse Rate 81 76 80 Respiratory Rate 16 16 16 Blood Pressure 98/54 L 109/57 L Pulse Oximetry 98 97 03/25/18 16:45 03/25/18 20:00 03/25/18 20:50 Temperature 99.2 F Pulse Rate 78 Respiratory Rate 20 16 16 Blood Pressure 112/67 Pulse Oximetry 97 99 98 03/25/18 21:08 03/25/18 22:30 03/26/18 00:00 Temperature 99.5 F Pulse Rate 76 80 Respiratory Rate 16 17 16 Blood Pressure 105/56 L Pulse Oximetry 98 97 03/26/18 03:23 03/26/18 04:00 Temperature 98.8 F Pulse Rate 79 80 Respiratory Rate 17 16 Blood Pressure 100/53 L Pulse Oximetry 97 97 Intake & Output 03/25/18 03/25/18 03/26/18 06:59 18:59 06:59 Intake Total 1802 / 1802 1130 / 1130 650 / 650 Output Total 1735 / 1735 2480 / 2480 1460 / 1460 Balance 67 / 67 -1350 / -1350 -810 / -810 Weight 91 kg 88 kg Intake: IV 1802 / 1802 650 / 650 650 / 650 Cordarone Inj 450 MG In D5W Inj 700 / 700 241 ML @ 1 MG/MIN 33.33 mls/hr IV.CONT TITRATE PRN Rx#: [id number] DOBUTamine 250 MG/250 ML Premx 380 / 380 250 mg In 250 ml @ 5 MCG/KG/MIN 25.8 mls/hr IV.CONT .Q9H42M STACY Rx#:[id number] Precedex Inj 200 MCG In NS Inj 150 / 150 50 / 50 48 ML @ 0.2 MCG/KG/HR 4.42 mls/ hr IV.CONT TITRATE PRN Rx#: [id number] Primacor Inj 20 MG In NS Inj 80 100 / 100 ML @ Per Protocol IV.CONT .Q0M STACY Rx#:[id number] Neosynephrine Inj 40 MG In NS 472 / 472 500 / 500 500 / 500 Inj 496 ML @ 40 MCG/MIN 30 mls/ hr IV.CONT TITRATE PRN Rx#: [id number] Diprivan 1000 mg/100 ml Inj 1, 100 / 100 000 mg In 100 ml @ 5 MCG/KG/MIN 2.58 mls/hr IV.CONT TITRATE PRN Rx#:[id number] Ancef 2 GM Premix Inj 2 gm In 50 / 50 50 ml @ 100 mls/hr IV.SIG Q8H STACY Rx#:[id number] Oral 0 / 0 Water Bolus Amount 480 / 480 Output: Urine Amount (Catheter) 1540 / 1540 2470 / 2470 1410 / 1410 Indwelling Temp Sensing 1540 / 1540 2470 / 2470 1410 / 1410 Catheter Gastric Drainage 125 / 125 0 / 0 Orogastric Tube 125 / 125 0 / 0 Chest Tube Drainage 70 / 70 10 / 10 50 / 50 Anterior 70 / 70 10 / 10 50 / 50 Other: # Bowel Movements 0 0 Result Diagrams: 03/26/18 04:20 03/26/18 04:20 Objective Remarks: GENERAL: This is a well-nourished, well-developed patient, intubated sedated with Precedex and fentanyl CARDIOVASCULAR: Midline CABG incision dressing intact, C/D/I. Currently on Nicolas- Synephrine 50 mcg/min, amiodarone gtt, Milrinone 0.375mcg/kg/min RESPIRATORY: Air entry diminished bilaterally at the bases, with few basilar crackles GASTROINTESTINAL: Abdomen soft, non-tender, nondistended. Normal active bowel sounds MUSCULOSKELETAL: Extremities without clubbing, cyanosis, or edema. Right groin site without hematoma where IABP was removed NEURO: Intubated sedated for ventilator synchrony. On lightening sedation patient able to follow commands. No new focal deficits by limited exam Assessment and Plan - Assessment and Plan Plan: ASSESSMENT: Ventricular fibrillation cardiac arrest Severe pulmonary edema Acute exacerbation of systolic heart failure Cardiogenic shock Acute hypoxemic respiratory failure Acute non-ST elevation [place] status post CABG Severe multivessel coronary artery disease CVA 2 Right internal carotid artery occlusion chronic Cocaine use Tobacco abuse PLAN: NEURO:Precedex/fentanyl for sedation and to facilitate ventilator weaning -As needed for pain control per CV orders -Daily sedation vacation -Watch for withdrawal, UDS +ve cocaine RESP: -Hypoxemic respiratory failure seems to be secondary to pulmonary edema, improving -Diuresis and inotropic agents as below -Currently on PRVC/PEEP 8. Start daily SBT -Ventilator bundle. DuoNeb scheduled and as needed -Anterior airway clinically (prominent overbite, short thyromental distance). Intubated 03/24/18 with glide scope Grade 1 view CV: -Chest x-ray shows severe pulmonary edema, now improving -Scheduled Lasix 40 mg IV every 8 hours with potassium supplementation, additional 20 mg IV now -Increase milrinone to 0.375 mcg/kg/min, Flowtrack monitoring, keep CI >2.2 -Nicolas-Synephrine at 50 mcg/min -Continue amiodarone gtt per protocol. Hold off beta blockers due to hypotension -Resumed aspirin and Plavix 03/24/2018 -Lipitor 80 mg nightly -Avoid beta blockers early due to shock and recent cocaine use GI: -N.p.o., IV PPI 40 q12 -Start tube feeds today if not extubated : -Monitor renal function closely. Garcia catheter. -IV Lasix, Aldactone as above ID: -Perioperative antibiotics per cardiothoracic surgery HEME: -Monitor CBC, coags ENDO: -Electrolyte replacement per protocol -IV insulin per CVICU protocol PROPH: -PPI, chemical DVT prophylaxis with Lovenox 40 sq daily. Start today CC time 35 min discontinuously
[2018-03-26] MEDS: SODIUM CHLOR 0.9% IV.CONT PRN ×2 (07:16→22:01)
[2018-03-26] MEDS: DEXMEDETOMIDINE IV.CONT PRN ×2 (07:16→22:01)
[2018-03-26] MEDS: Insulin NovoLOG Aspart Correctional Sugar Inj SQ SCH ×4 (07:51→17:11)
[2018-03-26] MEDS: Multivitamin/Minerals Therapeutic Tablet PO SCH (08:21)
[2018-03-26] MEDS: Enoxaparin Inj 40 MG/0.4 ML Syringe SQ SCH (08:21)
[2018-03-26] MEDS: Mupirocin 2% Nasal Oint Topical Syringe EACH NARE SCH (08:21)
[2018-03-26] MEDS: Spironolactone 25 MG Tablet PO SCH ×2 (08:22→17:41)
[2018-03-26] MEDS: Folic Acid 1 MG Tablet PO SCH (08:22)
[2018-03-26] MEDS: Docusate Sodium 100 MG Capsule PO SCH (08:22)
[2018-03-26] MEDS: Senna/Docusate Sodium 8.6/50 MG Tablet PO SCH ×2 (08:22→21:55)
[2018-03-26] MEDS: Potassium Chloride 25 MEQ Effervescent Tablet NG/OG SCH ×2 (08:56→21:54)
[2018-03-26] MEDS: Polyethylene Glycol 3350 17 GM Packet PO SCH ×2 (09:06→09:07)
--- NOTE | 2018-03-26 09:59 | P.PNCV ---
- Note Subjective/Hospital Course: 52-year-old male transferred from [place] emergency department, who presented with chest pain after he was trying to unload a truck and had some acute central chest pain radiating to his neck with some shortness of breath. He was worked up in the emergency department and was found to have elevated troponins for a non-STEMI. He was transferred to the [facility] . He underwent cardiac catheterization 03/22/[address] Thomas which showed an ejection fraction of 25%, left main disease of 60% proximal LAD 95%, mid distal LAD 80%, circumflex was 95, the RCA 95. Intraaortic balloon pump was placed due to class IV CHF and his low ejection fraction. We were consulted for emergent coronary artery bypass graft. PMH: carotid artery disease, recent left carotid endarterectomy 08/[address] [facility], history of asthma, seizure disorder, hiatal hernia, history of a recent CVA. residual left arm and left weakness, ETOH abuse 03/23 pt for surgery today 1. Urgent off-pump Coronary Artery Bypass Grafting x 4 with Left Internal Mammary Artery (ROJAS) to Left Anterior Descending (LAD), reverse saphenous vein graft to obtuse marginal branch of the left circumflex artery, reverse saphenous vein graft to the ramus marginalis, reverse saphenous vein graft to the diagonal 1 branch of the LAD 2. Right leg Endoscopic Vein [place] 3. Intraoperative Vein Mapping. 03/24 pt weaned of nicolas gtt this am , on dobutamine gtt at 2.5mcq very difficult to wean and extubate/ required fentanly and precedex pt was very agitated / uncooperative/ later calmed down and met extubation parameters extubated to nasal cannula 6 liters will need aggressive pulm toileting given dose of lasix this am , eval for BB this evening, since pt just weaned off Nicolas gtt add prn ativan for anxiety , add nabil arias , keep in CVICU for now IABP removed after surgery 03/25 Events from yesterday noted. 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 Patient presently intubated and mechanically ventilated. Awakens and responds appropriately to verbal commands. No apparent neurologic deficit. 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 May need EP study prior to discharge. Will need LifeVest given his underlying cardiomyopathy. Had a lengthy discussion with his daughter, Leia, and her boyfriend regarding his clinical findings and all questions were answered. 03/26 Doing better this morning. Diuresing with current therapy. Awake and responds appropriately verbal commands. Weaning ventilator as tolerated. Chest tubes removed today. Hemodynamic support as indicated by critical care team. Greatly appreciate their input. Objective: Vital Signs - 24 hr 03/25/18 10:05 03/25/18 11:00 03/25/18 13:05 Temperature 100.5 F H Pulse Rate 81 76 Respiratory Rate 21 16 16 Blood Pressure 98/54 L Pulse Oximetry 100 98 03/25/18 15:00 03/25/18 16:45 03/25/18 20:00 Temperature 100.0 F H 99.2 F Pulse Rate 80 78 Respiratory Rate 16 20 16 Blood Pressure 109/57 L 112/67 Pulse Oximetry 97 97 99 03/25/18 20:50 03/25/18 21:08 03/25/18 22:30 Temperature Pulse Rate 76 Respiratory Rate 16 16 17 Blood Pressure Pulse Oximetry 98 98 03/26/18 00:00 03/26/18 03:23 03/26/18 04:00 Temperature 99.5 F 98.8 F Pulse Rate 80 79 80 Respiratory Rate 16 17 16 Blood Pressure 105/56 L 100/53 L Pulse Oximetry 97 97 97 03/26/18 07:25 03/26/18 07:26 03/26/18 07:29 Temperature Pulse Rate 85 85 Respiratory Rate 16 Blood Pressure 111/58 L Pulse Oximetry 03/26/18 07:32 03/26/18 09:26 Temperature 100.1 F H Pulse Rate 80 79 Respiratory Rate 16 16 Blood Pressure 111/58 L Pulse Oximetry 97 Labs: Laboratory Results - last 12 hr 03/25/18 03/26/18 03/26/18 21:46 04:20 04:20 WBC 9.1 RBC 3.20 L Hgb 9.6 L Hct 28.0 L MCV 87.7 MCH 30.1 MCHC 34.3 RDW 14.7 Plt Count 204 MPV 8.5 Sodium 139 Potassium 4.0 Chloride 104 Carbon Dioxide 27.8 Anion Gap 7 BUN 17 Creatinine 1.09 Estimated GFR 70 L POC Glucose 113 H Random Glucose 109 H Calcium 8.1 L Magnesium 2.3 Total Bilirubin 0.7 AST 44 H ALT 23 Alkaline Phosphatase 44 L Total Protein 5.6 L Albumin 2.2 L 03/26/18 07:49 WBC RBC Hgb Hct MCV MCH MCHC RDW Plt Count MPV Sodium Potassium Chloride Carbon Dioxide Anion Gap BUN Creatinine Estimated GFR POC Glucose 135 H Random Glucose Calcium Magnesium Total Bilirubin AST ALT Alkaline Phosphatase Total Protein Albumin Result Diagrams: 03/26/18 04:20 03/26/18 04:20 - Plan (2) Asthma Plan: on nebs, may benefit from symbicort (3) Seizure Plan: pt not on meds at home (5) S/P CABG (coronary artery bypass graft) Plan: resume ASA, statin , plavix start BB this pm if SBP stable aggressive pulm toileting CV: -Evidence of pulmonary edema on chest x-ray, now improved with diuresis -Nicolas-Synephrine at 120 mcg/min, dobutamine 2.5 mcg/kg/min to maintain map above 65 and cardiac output -Diuresis with IV Lasix 40 mg yesterday, additional 20 mg IV today. -Continue amiodarone increase 400 mg twice daily. OOB will need pt assistance HHC at discharge (6) History of CVA (cerebrovascular accident) Plan: CVA 2 Right internal carotid artery occlusion chronic on ASA plavix
[2018-03-26] MEDS: Milrinone Inj 20 MG in Sodium Chlor 0.9% Inj 80 ML IV.CONT SCH ×2 (10:21→22:02)
[2018-03-26] MEDS: Phenylephrine Inj 40 MG in Sodium Chlor 0.9% Inj 496 ML IV.CONT PRN (12:06)
--- NOTE | 2018-03-26 13:10 | P.PNCA ---
Subjective Interval history: intubated, sedated Physical Exam Vital signs: Vital Signs 03/25/18 15:00 03/25/18 16:45 03/25/18 20:00 Temperature 100.0 F H 99.2 F Pulse Rate 80 78 Respiratory Rate 16 20 16 Blood Pressure 109/57 L 112/67 Pulse Oximetry 97 97 99 03/25/18 20:50 03/25/18 21:08 03/25/18 22:30 Temperature Pulse Rate 76 Respiratory Rate 16 16 17 Blood Pressure Pulse Oximetry 98 98 03/26/18 00:00 03/26/18 03:23 03/26/18 04:00 Temperature 99.5 F 98.8 F Pulse Rate 80 79 80 Respiratory Rate 16 17 16 Blood Pressure 105/56 L 100/53 L Pulse Oximetry 97 97 97 03/26/18 07:25 03/26/18 07:26 03/26/18 07:29 Temperature Pulse Rate 85 85 Respiratory Rate 16 Blood Pressure 111/58 L Pulse Oximetry 03/26/18 07:30 03/26/18 07:32 03/26/18 09:26 Temperature 100.1 F H Pulse Rate 80 79 Respiratory Rate 16 16 16 Blood Pressure 111/58 L Pulse Oximetry 94 L 97 03/26/18 11:01 03/26/18 11:04 Temperature 99.9 F H Pulse Rate 76 76 Respiratory Rate 16 Blood Pressure 106/52 L 111/58 L Pulse Oximetry 97 Intake & Output 03/25/18 03/26/18 03/26/18 18:59 06:59 18:59 Intake Total 1130 / 1130 650 / 650 950 / 950 Output Total 2480 / 2480 1460 / 1460 Balance -1350 / -1350 -810 / -810 950 / 950 Weight 88 kg Intake: IV 650 / 650 650 / 650 950 / 950 Cordarone Inj 450 MG In D5W Inj 250 / 250 241 ML @ 1 MG/MIN 33.33 mls/hr IV.CONT TITRATE PRN Rx#: [id number] Precedex Inj 400 MCG In NS Inj 100 / 100 96 ML @ 0.2 MCG/KG/HR 4.42 mls/ hr IV.CONT TITRATE PRN Rx#: [id number] Precedex Inj 200 MCG In NS Inj 150 / 150 50 / 50 48 ML @ 0.2 MCG/KG/HR 4.42 mls/ hr IV.CONT TITRATE PRN Rx#: [id number] Primacor Inj 20 MG In NS Inj 80 100 / 100 100 / 100 ML @ Per Protocol IV.CONT .Q0M STACY Rx#:[id number] Neosynephrine Inj 40 MG In NS 500 / 500 500 / 500 500 / 500 Inj 496 ML @ 40 MCG/MIN 30 mls/ hr IV.CONT TITRATE PRN Rx#: [id number] Oral 0 / 0 Water Bolus Amount 480 / 480 Output: Urine Amount (Catheter) 2470 / 2470 1410 / 1410 Indwelling Temp Sensing 2470 / 2470 1410 / 1410 Catheter Gastric Drainage 0 / 0 Orogastric Tube 0 / 0 Chest Tube Drainage 50 / 50 Anterior 50 / 50 Other: # Bowel Movements 0 0 - Urinary Catheter Management Indwelling Temp Sensing Catheter Cath placed during this visit: yes Reason for continuing: Hourly intake/output Insertion date: 03/23/18 Insertion time: 07:38 Assessment and Plan - Assessment (1) CAD (coronary artery disease) Code(s): I25.10 - Atherosclerotic heart disease of enterprise coronary artery without angina pectoris Status: Acute (2) CAD (coronary artery disease) Code(s): I25.10 - Atherosclerotic heart disease of enterprise coronary artery without angina pectoris Status: Acute (3) Acute non-ST elevation myocardial infarction (NSTEMI) Code(s): I21.4 - Non-ST elevation (NSTEMI) myocardial infarction Status: Acute (4) S/P CABG (coronary artery bypass graft) Code(s): Z95.1 - Presence of aortocoronary bypass graft Status: Acute (5) Status post carotid surgery Code(s): Z98.890 - Other specified postprocedural states Status: Acute (6) Stroke Code(s): I63.9 - Cerebral infarction, unspecified Status: Acute - Plan 1.) CAD - pod# 3 s/p cabg, vf x epi and cv 03/24/18. intubated, on , mil, amio and getting diuresed, u/o good, d/w nurse, John, continue aspirin, plavix, lipitor, amio, iabp out, patient strongly advised to stop smoking and cocaine
--- NOTE | 2018-03-26 13:39 | XR ---
EXAM DATE: 03/26/2018 1:27 PM EDT AGE/SEX: 52 years / Male INDICATIONS: Respiratory failure CLINICAL DATA: This is the patient's subsequent encounter. Patient reports that signs and symptoms h ave been present for 1 week and indicates a pain score of Nonresponsive. MEDICAL/SURGICAL HISTORY: . Asthma. Hiatal hernia. Seizure. Stroke . Carotid endarterectomy. CABG COMPARISON: [facility], CHEST 1V SINGLE AP, 03/26/2018. . FINDINGS: Previously seen left chest tube has been removed. The other lines and tubes have not changed. No defi nite pneumothorax is seen for technique. There is slight worsening of pulmonary edema. Heart and medi astinum have not changed. CONCLUSION: Slight worsening pulmonary edema. Electronically signed by: Tammy Castellano MD 03/26/2018 1:38 PM EDT
[2018-03-26] MEDS: fentaNYL 10 mcg/mL Premix Drip 2,500 MCG/250 ML BAG IV.SIG PRN (14:19)
[2018-03-26 14:45] LABS: ABG PCO2 38 mmHg (38-42); ABG PO2 104 mmHG (61-120)
[2018-03-26 20:23] LABS: Calcium 8.4 mg/dL (8.5-10.1); Carbon Dioxide 26.3 meq/L (21.0-32.0); Magnesium 2.3 mg/dL (1.5-2.5); Potassium 3.5 meq/L (3.5-5.1)
[2018-03-27 04:34] LABS: Hematocrit 28.6 % (39.0-51.0); Hemoglobin 9.7 gm/dL (13.0-17.0); Mean Corpuscular Hemoglobin 29.9 pg (27.0-34.0); Platelet Count 260 th/mm3 (150-450); Red Blood Count 3.26 mil/mm3 (4.50-5.90); Red Cell Distribution Width 14.6 % (11.6-17.2)
[2018-03-27 04:59] LABS: Albumin 2.3 g/dL (3.4-5.0); Anion Gap 10 meq/L (5-15); Aspartate Aminotransferase 61 U/L (15-37); Blood Urea Nitrogen 17 mg/dL (7-18); Calcium 8.4 mg/dL (8.5-10.1); Carbon Dioxide 24.3 meq/L (21.0-32.0); Chloride 105 meq/L (98-107); Glomerular Filtration Rate 70 mL/min (>89); Glucose,Random 120 mg/dL (74-106); Magnesium 2.3 mg/dL (1.5-2.5); Potassium 3.8 meq/L (3.5-5.1); Sodium 139 meq/L (136-145)
[2018-03-27 05:00] LABS: Alanine Aminotransferase 29 U/L (12-78)
[2018-03-27 05:02] LABS: Alkaline Phosphatase 45 U/L (45-117); Total Protein 6.1 g/dL (6.4-8.2)
--- NOTE | 2018-03-27 05:12 | XR ---
EXAM DATE: 03/27/2018 4:45 AM EDT AGE/SEX: 52 years / Male INDICATIONS: Respiratory disease. CLINICAL DATA: This is the patient's subsequent encounter. Patient reports that signs and symptoms h ave been present for 1 week and indicates a pain score of Nonresponsive. MEDICAL/SURGICAL HISTORY: . Asthma. Hiatal hernia. Seizure. Stroke . . Carotid endarterectomy . [place] [facility] [place]. . FINDINGS: A single AP semierect view of the chest was obtained and again demonstrates that the patient is statu s post median sternotomy. The endotracheal tube remains in place with the tip approximately 3 to 4 cm above the kandis. Nasogastric tube and right internal jugular central venous line remain in place. A bnormal opacity remains at the right lung base. The heart size remains mildly enlarged. CONCLUSION: 1. No significant change. Abnormal opacity remains in the right lung base. 2. Mild cardiomegaly Electronically signed by: Levar Ramírez MD 03/27/2018 5:11 AM EDT
[2018-03-27] MEDS: Pantoprazole Inj 40 MG Vial IV.PUSH SCH ×2 (06:00→18:30)
[2018-03-27] MEDS: Insulin NovoLOG Aspart Correctional Sugar Inj SQ SCH ×5 (07:44→21:29)
[2018-03-27] MEDS: Docusate Sodium 100 MG Capsule PO SCH ×3 (07:44→21:29)
--- NOTE | 2018-03-27 07:45 | P.PNCC ---
Subjective Subjective Remarks/Hospital Course: A 52-year-old male with past medical history significant for stroke 2, occluded right internal carotid artery, continued tobacco use, asthma, seizure disorder who presented to the emergency department with chest pain. ER workup showed elevated troponin and he ruled in for a non-ST elevation HI. He underwent cardiac catheterization 03/[address] Thomas which showed an ejection fraction of 25%, left main disease of 60% proximal LAD 95%, mid distal LAD 80%, circumflex was 95, the RCA 95. Intraaortic balloon pump was placed and CTS consulted for emergent coronary artery bypass graft. Patient underwent urgent off-pump Coronary Artery Bypass Grafting x 4 with Left Internal Mammary Artery to Left Anterior Descending, reverse saphenous vein graft to obtuse marginal branch of the left circumflex artery, reverse saphenous vein graft to the ramus marginalis, reverse saphenous vein graft to the diagonal 1 branch of the LAD. Apparently airway was anterior and glide scope was used for intubation. Post op patient was moved to the CVICU where I met him. Patient is currently sedated with 1.5 mcg/kg/h Precedex. Currently on Nicolas-Synephrine 60 mcg/min to maintain MAP above 65. There was dysfunction of intra-aortic balloon pump and this was subsequently removed by Dr. Santiago. Due to hypotension Nicolas-Synephrine was titrated up and patient was started on dobutamine at 2.5 mcg/kg/min. CXR was reviewed, showed bilateral pulmonary edema. Will increase nicolas to improve MAP , increase Dobutamine to 5 mcg/kg/min and then give Lasix 40 mg IVP STAT 03/24: Sedated with propofol. Remains on Dobutamine 2.5 mcg/kg/min and Nicolas at 120 mcg/ kg/min. UO 3.2 L after 40 mg IVP of Lasix. Wakes up and follows commands. O2 sats improved 03/25: Patient was extubated yesterday tolerated well initially. However around 4:30 PM patient developed V. fib arrest while being transferred from chair to bed. Patient was shocked twice intubated and placed on mechanical ventilation. See CPR procedure note. Postintubation chest x-ray showed pulmonary edema. Patient received 80 mg Lasix IV with good diuresis. He was started on amiodarone infusion. Currently chest x-ray shows persistent pulmonary edema. Currently he is on Nicolas-Synephrine 80 mcg/min. I have started him on scheduled Lasix with potassium replacement. Also will start on milrinone for inotropic given ejection fraction of approximately 20-25% and severe pulmonary edema 03/26: Remains critical but showing some signs of improvement. Achieving good diuresis and negative balance. CVP 11. Give additional 20 mg Lasix now, add Aldactone, increase milrinone to 0.375 mcg/kg/min. Start weaning trials. CXR show persistent but improving pulmonary edema 03/27: awake and following commands. becomes severely agitated with sedation wean. good diuresis overnight. less hypoxic. CXR though with still persistent pulmonary edema. hemodynamics are stable with CI 2.5 on phenylephrine and milrinone. Objective Vital Signs / I&O: Vital Signs 03/26/18 09:26 03/26/18 11:01 03/26/18 11:04 Temperature 37.7 C H Pulse Rate 79 76 76 Respiratory Rate 16 16 Blood Pressure 106/52 L 111/58 L Pulse Oximetry 97 03/26/18 13:35 03/26/18 14:30 03/26/18 15:06 Temperature Pulse Rate 74 Respiratory Rate 30 H Blood Pressure 108/56 L Pulse Oximetry 98 97 03/26/18 15:09 03/26/18 17:10 03/26/18 19:00 Temperature 37.9 C H 37.7 C H Pulse Rate 74 72 69 Respiratory Rate 16 16 16 Blood Pressure 108/56 L 120/59 L Pulse Oximetry 97 98 03/26/18 20:50 03/26/18 21:31 03/26/18 22:45 Temperature Pulse Rate 70 Respiratory Rate 16 17 16 Blood Pressure Pulse Oximetry 99 98 03/26/18 23:00 03/27/18 03:00 03/27/18 03:04 Temperature 37.7 C H 37.8 C H Pulse Rate 69 73 68 Respiratory Rate 16 16 20 Blood Pressure 125/64 132/65 Pulse Oximetry 99 98 99 Intake & Output 03/26/18 03/27/18 03/27/18 18:59 06:59 18:59 Intake Total 1300 / 1300 100 / 100 Output Total 3200 / 3200 Balance -1900 / -1900 100 / 100 Intake: IV 1300 / 1300 100 / 100 Cordarone Inj 450 MG In D5W Inj 250 / 250 241 ML @ 1 MG/MIN 33.33 mls/hr IV.CONT TITRATE PRN Rx#: [id number] Precedex Inj 400 MCG In NS Inj 200 / 200 96 ML @ 0.2 MCG/KG/HR 4.42 mls/ hr IV.CONT TITRATE PRN Rx#: [id number] Primacor Inj 20 MG In NS Inj 80 100 / 100 100 / 100 ML @ Per Protocol IV.CONT .Q0M STACY Rx#:[id number] Neosynephrine Inj 40 MG In NS 500 / 500 Inj 496 ML @ 40 MCG/MIN 30 mls/ hr IV.CONT TITRATE PRN Rx#: [id number] fentaNYL 10 mcg/mL Premix Drip 250 / 250 2,500 mcg In 250 ml @ 50 MCG/HR 5 mls/hr IV.SIG TITRATE PRN Rx #:[id number] Output: Urine Amount (Catheter) 3000 / 3000 Indwelling Temp Sensing 3000 / 3000 Catheter Gastric Drainage 200 / 200 Orogastric Tube 200 / 200 Other: # Bowel Movements 0 Result Diagrams: 03/27/18 04:00 03/27/18 04:00 Objective Remarks: GENERAL: This is a middle-aged patient, intubated sedated with Precedex and fentanyl CARDIOVASCULAR: Midline CABG incision dressing intact, C/D/I. Currently on Nicolas- Synephrine, amiodarone, Milrinone RESPIRATORY: Air entry diminished bilaterally at the bases, with few basilar crackles GASTROINTESTINAL: Abdomen soft, non-tender, nondistended. no guarding. MUSCULOSKELETAL: Extremities without clubbing, cyanosis, or edema. Right groin site without hematoma where IABP was removed NEURO: Intubated sedated for ventilator synchrony. On lightening sedation patient able to follow commands. No new focal deficits by limited exam Assessment and Plan - Assessment and Plan Plan: ASSESSMENT: Ventricular fibrillation cardiac arrest Severe pulmonary edema Acute exacerbation of systolic heart failure acute hypoxic respiratory failure Cardiogenic shock Acute hypoxemic respiratory failure Acute non-ST elevation HI status post CABG Severe multivessel coronary artery disease CVA 2 Right internal carotid artery occlusion chronic Cocaine use Tobacco abuse PLAN: NEURO:Precedex/fentanyl for sedation and to facilitate ventilator weaning -As needed for pain control per CV orders -Daily sedation vacation -Watch for withdrawal, UDS +ve cocaine RESP: -Hypoxemic respiratory failure seems to be secondary to pulmonary edema, improving -Diuresis and inotropic agents as below -Currently on PRVC/PEEP 5. continue with daily SBTs. -Ventilator bundle. DuoNeb scheduled and as needed -Anterior airway clinically (prominent overbite, short thyromental distance). Intubated 03/24/18 with glide scope Grade 1 view CV: -Chest x-ray shows severe pulmonary edema, now improving, although still persistent radiographic evidence. -Scheduled Lasix 40 mg IV every 8 hours with potassium supplementation. continue this schedule as it appears to be working to adequately diurese the patient. -continue milrinone at 0.375 mcg/kg/min. Flowtrack monitoring, keep CI >2.2 -Nicolas-Synephrine for goal map > 65 mmHg. -Continue amiodarone gtt per protocol. Hold off beta blockers due to hypotension -Resumed aspirin and Plavix 03/24/2018 -Lipitor 80 mg nightly -Avoid beta blockers early due to shock and recent cocaine use GI: -N.p.o., IV PPI 40 q12 -Start tube feeds today if not extubated : -Monitor renal function closely. Garcia catheter. -IV Lasix, Aldactone as above ID: -Perioperative antibiotics per cardiothoracic surgery HEME: -Monitor CBC, coags ENDO: -Electrolyte replacement per protocol -IV insulin per CVICU protocol PROPH: -PPI, chemical DVT prophylaxis with Lovenox 40 sq daily. OVERALL IMPRESSION: some mild improvements in pulmonary status. will attempt to separate from mechanical ventilation. however, remains critically ill in cardiogenic shock and hypoxic respiratory failure and requires ongoing hemodynamic, inotropic, and ventilatory support to prevent decompensation and . Critical care time: 38 minutes, exclusive of separately billable procedures.
[2018-03-27] MEDS: Potassium Chloride 25 MEQ Effervescent Tablet NG/OG SCH ×2 (08:49→21:27)
[2018-03-27] MEDS: Enoxaparin Inj 40 MG/0.4 ML Syringe SQ SCH (08:49)
[2018-03-27] MEDS: Multivitamin/Minerals Therapeutic Tablet PO SCH (08:50)
[2018-03-27] MEDS: Folic Acid 1 MG Tablet PO SCH (08:50)
[2018-03-27] MEDS: Senna/Docusate Sodium 8.6/50 MG Tablet PO SCH ×2 (08:50→21:28)
[2018-03-27] MEDS: Polyethylene Glycol 3350 17 GM Packet PO SCH (08:51)
[2018-03-27] MEDS: Spironolactone 25 MG Tablet PO SCH ×2 (08:52→17:24)
[2018-03-27] MEDS: DEXMEDETOMIDINE IV.CONT PRN ×3 (09:37→19:56)
[2018-03-27] MEDS: SODIUM CHLOR 0.9% IV.CONT PRN ×3 (09:37→19:56)
[2018-03-27] MEDS: Milrinone Inj 20 MG in Sodium Chlor 0.9% Inj 80 ML IV.CONT SCH ×2 (09:40→19:56)
--- NOTE | 2018-03-27 09:56 | P.PNCV ---
- Note Subjective/Hospital Course: 52-year-old male transferred from [place] emergency department, who presented with chest pain after he was trying to unload a truck and had some acute central chest pain radiating to his neck with some shortness of breath. He was worked up in the emergency department and was found to have elevated troponins for a non-STEMI. He was transferred to the [facility] . He underwent cardiac catheterization 03/22/[address] Thomas which showed an ejection fraction of 25%, left main disease of 60% proximal LAD 95%, mid distal LAD 80%, circumflex was 95, the RCA 95. Intraaortic balloon pump was placed due to class IV CHF and his low ejection fraction. We were consulted for emergent coronary artery bypass graft. PMH: carotid artery disease, recent left carotid endarterectomy 08/2017 at [facility], history of asthma, seizure disorder, hiatal hernia, history of a recent CVA. residual left arm and left weakness, ETOH abuse 03/23 pt for surgery today 1. Urgent off-pump Coronary Artery Bypass Grafting x 4 with Left Internal Mammary Artery (ROJAS) to Left Anterior Descending (LAD), reverse saphenous vein graft to obtuse marginal branch of the left circumflex artery, reverse saphenous vein graft to the ramus marginalis, reverse saphenous vein graft to the diagonal 1 branch of the LAD 2. Right leg Endoscopic Vein [place] 3. Intraoperative Vein Mapping. 03/24 pt weaned of nicolas gtt this am , on dobutamine gtt at 2.5mcq very difficult to wean and extubate/ required fentanly and precedex pt was very agitated / uncooperative/ later calmed down and met extubation parameters extubated to nasal cannula 6 liters will need aggressive pulm toileting given dose of lasix this am , eval for BB this evening, since pt just weaned off Nicolas gtt add prn ativan for anxiety , add nabil arias , keep in CVICU for now IABP removed after surgery 03/25 Events from yesterday noted. Greatly appreciate route delivery clerk input and assistance. Patient presently intubated and mechanically ventilated. Awakens and responds appropriately to verbal commands. No apparent neurologic deficit. 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 May need EP study prior to discharge. Will need LifeVest given his underlying cardiomyopathy. Had a lengthy discussion with his daughter, Leia, and her boyfriend regarding his clinical findings and all questions were answered. 03/26 Doing better this morning. Diuresing with current therapy. Awake and responds appropriately verbal commands. Weaning ventilator as tolerated. Chest tubes removed today. Hemodynamic support as indicated by critical care team. Greatly appreciate their input. 03/27 remains on vent CPAP mode/ 40% fio2 will follow commands , writing on paper on milrinone, amiodarone gtt, Nicolas gtt , lasix q8hr CO 5.4/ CI 2.6/ SVV 6 , CVP 11 Objective: Vital Signs - 24 hr 03/26/18 11:01 03/26/18 11:04 03/26/18 13:35 Temperature 99.9 F H Pulse Rate 76 76 Respiratory Rate 16 30 H Blood Pressure 106/52 L 111/58 L Pulse Oximetry 97 98 03/26/18 14:30 03/26/18 15:06 03/26/18 15:09 Temperature 100.3 F H Pulse Rate 74 74 Respiratory Rate 16 Blood Pressure 108/56 L 108/56 L Pulse Oximetry 97 97 03/26/18 17:10 03/26/18 19:00 03/26/18 20:50 Temperature 99.9 F H Pulse Rate 72 69 Respiratory Rate 16 16 16 Blood Pressure 120/59 L Pulse Oximetry 98 99 03/26/18 21:31 03/26/18 22:45 03/26/18 23:00 Temperature 99.9 F H Pulse Rate 70 68 Respiratory Rate 17 16 16 Blood Pressure 125/64 Pulse Oximetry 98 99 03/27/18 03:00 03/27/18 03:04 03/27/18 07:00 Temperature 100.1 F H 99.6 F Pulse Rate 73 68 81 Respiratory Rate 16 20 16 Blood Pressure 132/65 108/65 Pulse Oximetry 98 99 98 GENERAL: sedated on vent, will however open eyes follow commands SKIN: Warm and dry. HEAD: Atraumatic. Normocephalic. EYES: Pupils equal and round. No scleral icterus. No injection or drainage. ENT: No nasal bleeding or discharge. Mucous membranes pink and moist. NECK: Trachea midline. No JVD. CARDIOVASCULAR: Regular rate and rhythm. no further ectopy , mild general edema RESPIRATORY: No accessory muscle use. Clear to auscultation. Breath sounds equal bilaterally. few coarse breath sounds , orally intubated GASTROINTESTINAL: Abdomen soft, non-tender, nondistended. Hepatic and splenic margins not palpable. NG tube in place to low intermittent suction MUSCULOSKELETAL: Extremities without clubbing, cyanosis, or edema. No obvious deformities. NEUROLOGICAL: sedated on vent PSYCHIATRIC: NA Labs: Laboratory Results - last 12 hr 03/27/18 03/27/18 03/27/18 04:00 04:00 07:31 WBC 9.0 RBC 3.26 L Hgb 9.7 L Hct 28.6 L MCV 88.0 MCH 29.9 MCHC 34.0 RDW 14.6 Plt Count 260 MPV 8.0 Sodium 139 Potassium 3.8 Chloride 105 Carbon Dioxide 24.3 Anion Gap 10 BUN 17 Creatinine 1.09 Estimated GFR 70 L POC Glucose 153 H Random Glucose 120 H Calcium 8.4 L Magnesium 2.3 Total Bilirubin 0.6 AST 61 H ALT 29 Alkaline Phosphatase 45 Total Protein 6.1 L Albumin 2.3 L Result Diagrams: 03/27/18 04:00 03/27/18 04:00 - Plan (2) Asthma Plan: on nebs, may benefit from symbicort (3) Seizure Plan: pt not on meds at home (5) S/P CABG (coronary artery bypass graft) Plan: resume ASA, statin , plavix start BB this pm if SBP stable aggressive pulm toileting CV: -Evidence of pulmonary edema on chest x-ray, now improved with diuresis -Nicolas-Synephrine at 120 mcg/min, dobutamine 2.5 mcg/kg/min to maintain map above 65 and cardiac output -Diuresis with IV Lasix 40 mg yesterday, additional 20 mg IV today. -Continue amiodarone increase 400 mg twice daily. OOB will need pt assistance HHC at discharge (6) History of CVA (cerebrovascular accident) Plan: CVA 2 Right internal carotid artery occlusion chronic on ASA plavix (9) Postoperative cardiac arrest Plan: on amiodarone will change to OG route and wean off IV will need EP study , consideration for Life Vest (10) Cocaine abuse Plan: counseled regarding cessation
[2018-03-27] MEDS: Amiodarone 200 MG Tablet PO SCH (11:49)
[2018-03-27] MEDS: fentaNYL Citrate Inj 100 MCG/2 ML Ampul IV.PUSH PRN ×2 (13:36→17:17)
--- NOTE | 2018-03-27 13:38 | P.PNCA ---
Subjective Interval history: intubated, sedated Physical Exam Vital signs: Vital Signs 03/26/18 14:30 03/26/18 15:06 03/26/18 15:09 Temperature 100.3 F H Pulse Rate 74 74 Respiratory Rate 16 Blood Pressure 108/56 L 108/56 L Pulse Oximetry 97 97 03/26/18 17:10 03/26/18 19:00 03/26/18 20:50 Temperature 99.9 F H Pulse Rate 72 69 Respiratory Rate 16 16 16 Blood Pressure 120/59 L Pulse Oximetry 98 99 03/26/18 21:31 03/26/18 22:45 03/26/18 23:00 Temperature 99.9 F H Pulse Rate 70 68 Respiratory Rate 17 16 16 Blood Pressure 125/64 Pulse Oximetry 98 99 03/27/18 03:00 03/27/18 03:04 03/27/18 07:00 Temperature 100.1 F H 99.6 F Pulse Rate 73 68 81 Respiratory Rate 16 20 16 Blood Pressure 132/65 108/65 Pulse Oximetry 98 99 98 03/27/18 09:57 03/27/18 10:25 03/27/18 11:00 Temperature 99.6 F 100.5 F H Pulse Rate 73 79 Respiratory Rate 30 H 43 H Blood Pressure 117/72 Pulse Oximetry 97 Intake & Output 03/26/18 03/27/18 03/27/18 18:59 06:59 18:59 Intake Total 1300 / 1300 200 / 200 100 / 100 Output Total 3200 / 3200 1770 / 1770 Balance -1900 / -1900 -1570 / -1570 100 / 100 Weight 87 kg Intake: IV 1300 / 1300 200 / 200 100 / 100 Cordarone Inj 450 MG In D5W Inj 250 / 250 241 ML @ 1 MG/MIN 33.33 mls/hr IV.CONT TITRATE PRN Rx#: [id number] Precedex Inj 400 MCG In NS Inj 200 / 200 100 / 100 96 ML @ 0.2 MCG/KG/HR 4.42 mls/ hr IV.CONT TITRATE PRN Rx#: [id number] Primacor Inj 20 MG In NS Inj 80 100 / 100 100 / 100 100 / 100 ML @ Per Protocol IV.CONT .Q0M [facility] Rx#:[id number] Neosynephrine Inj 40 MG In NS 500 / 500 Inj 496 ML @ 40 MCG/MIN 30 mls/ hr IV.CONT TITRATE PRN Rx#: [id number] fentaNYL 10 mcg/mL Premix Drip 250 / 250 2,500 mcg In 250 ml @ 50 MCG/HR 5 mls/hr IV.SIG TITRATE PRN Rx #:[id number] Oral 0 / 0 Output: Urine Amount (Catheter) 3000 / 3000 1770 / 1770 Indwelling Temp Sensing 3000 / 3000 1770 / 1770 Catheter Gastric Drainage 200 / 200 Orogastric Tube 200 / 200 Other: # Bowel Movements 0 - Urinary Catheter Management Indwelling Temp Sensing Catheter Cath placed during this visit: yes Reason for continuing: Hourly intake/output Insertion date: 03/23/18 Insertion time: 07:38 Assessment and Plan - Assessment (1) CAD (coronary artery disease) Code(s): I25.10 - Atherosclerotic heart disease of [place] coronary artery without angina pectoris Status: Acute (2) CAD (coronary artery disease) Code(s): I25.10 - Atherosclerotic heart disease of [place] coronary artery without angina pectoris Status: Acute (3) Acute non-ST elevation myocardial infarction (NSTEMI) Code(s): I21.4 - Non-ST elevation (NSTEMI) myocardial infarction Status: Acute (4) S/P CABG (coronary artery bypass graft) Code(s): Z95.1 - Presence of aortocoronary bypass graft Status: Acute (5) Status post carotid surgery Code(s): Z98.890 - Other specified postprocedural states Status: Acute (6) Stroke Code(s): I63.9 - Cerebral infarction, unspecified Status: Acute - Plan 1.) CAD - pod# 3 s/p cabg, vf x epi and cv 03/24/18. intubated, on , mil, amio and getting diuresed, u/o good, d/w nurseJohn, continue aspirin, plavix, lipitor, amio, iabp out, patient strongly advised to stop smoking and cocaine
--- NOTE | 2018-03-27 13:45 | XR ---
EXAM DATE: 03/27/2018 1:35 PM EDT AGE/SEX: 52 years / Male INDICATIONS: Shortness of breath and chest pain. CLINICAL DATA: This is the patient's subsequent encounter. Patient reports that signs and symptoms h ave been present for 1 week and indicates a pain score of 3/10. MEDICAL/SURGICAL HISTORY: Hypertension. Stroke. None. COMPARISON: [facility], CHEST 1V SINGLE AP, 03/27/2018. . FINDINGS: Overall lung aeration has decreased. There is bilateral airspace disease especially in both bases. Mi ld central congestive changes are noted. Supportive devices which included an endotracheal tube, nasogastric tube and right jugular central li ne remain in stable position. CONCLUSION: Decreasing lung aeration accentuating bibasilar airspace disease and mild central congestion Otherwise stable chest and supportive devices. Electronically signed by: Wale Rosario MD 03/27/2018 1:43 PM EDT
[2018-03-28] MEDS: DEXMEDETOMIDINE IV.CONT PRN (02:00)
[2018-03-28] MEDS: SODIUM CHLOR 0.9% IV.CONT PRN (02:00)
[2018-03-28] MEDS: Pantoprazole Inj 40 MG Vial IV.PUSH SCH (06:06)
[2018-03-28] MEDS: Milrinone Inj 20 MG in Sodium Chlor 0.9% Inj 80 ML IV.CONT SCH (06:34)
[2018-03-28] MEDS ORDERED: Haloperidol Inj 5 MG/ML Ampul ONE (07:18)
[2018-03-28] MEDS: Multivitamin/Minerals Therapeutic Tablet PO SCH (09:18)
[2018-03-28] MEDS: Senna/Docusate Sodium 8.6/50 MG Tablet PO SCH ×2 (09:18→22:09)
[2018-03-28] MEDS: Enoxaparin Inj 40 MG/0.4 ML Syringe SQ SCH (09:21)
[2018-03-28] MEDS: Folic Acid 1 MG Tablet PO SCH (09:22)
[2018-03-28] MEDS: Potassium Chloride 25 MEQ Effervescent Tablet NG/OG SCH (09:22)
[2018-03-28] MEDS: Polyethylene Glycol 3350 17 GM Packet PO SCH (09:23)
[2018-03-28] MEDS: Docusate Sodium 100 MG Capsule PO SCH ×2 (09:26→22:09)
[2018-03-28] MEDS: Spironolactone 25 MG Tablet PO SCH ×2 (09:27→17:07)
--- NOTE | 2018-03-28 10:22 | P.PNCV ---
- Note Subjective/Hospital Course: 52-year-old male transferred from [place] emergency department, who presented with chest pain after he was trying to unload a truck and had some acute central chest pain radiating to his neck with some shortness of breath. He was worked up in the emergency department and was found to have elevated troponins for a non-STEMI. He was transferred to the [facility] . He underwent cardiac catheterization 03/22/[address] Thomas which showed an ejection fraction of 25%, left main disease of 60% proximal LAD 95%, mid distal LAD 80%, circumflex was 95, the RCA 95. Intraaortic balloon pump was placed due to class IV CHF and his low ejection fraction. We were consulted for emergent coronary artery bypass graft. PMH: carotid artery disease, recent left carotid endarterectomy 08/[address] [facility] ([place], [place]), history of asthma, seizure disorder, hiatal hernia, history of a recent CVA. residual left arm and left weakness, ETOH abuse 03/23 pt for surgery today 1. Urgent off-pump Coronary Artery Bypass Grafting x 4 with Left Internal Mammary Artery (ROJAS) to Left Anterior Descending (LAD), reverse saphenous vein graft to obtuse marginal branch of the left circumflex artery, reverse saphenous vein graft to the ramus marginalis, reverse saphenous vein graft to the diagonal 1 branch of the LAD 2. Right leg Endoscopic Vein [place] 3. Intraoperative Vein Mapping. 03/24 pt weaned of nicolas gtt this am , on dobutamine gtt at 2.5mcq very difficult to wean and extubate/ required fentanly and precedex pt was very agitated / uncooperative/ later calmed down and met extubation parameters extubated to nasal cannula 6 liters will need aggressive pulm toileting given dose of lasix this am , eval for BB this evening, since pt just weaned off Nicolas gtt add prn ativan for anxiety , add nabil arias , keep in CVICU for now IABP removed after surgery 03/25 Events from yesterday noted. Greatly appreciate chemicals fermentation operator input and assistance. Patient presently intubated and mechanically ventilated. Awakens and responds appropriately to verbal commands. No apparent neurologic deficit. 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 May need EP study prior to discharge. Will need LifeVest given his underlying cardiomyopathy. Had a lengthy discussion with his daughter, Leia, and her boyfriend regarding his clinical findings and all questions were answered. 03/26 Doing better this morning. Diuresing with current therapy. Awake and responds appropriately verbal commands. Weaning ventilator as tolerated. Chest tubes removed today. Hemodynamic support as indicated by critical care team. Greatly appreciate their input. 03/27 remains on vent CPAP mode/ 40% fio2 will follow commands , writing on paper on milrinone, amiodarone gtt, Nicolas gtt , lasix q8hr CO 5.4/ CI 2.6/ SVV 6 , CVP 11 03/28 sitting up in bed, weaned off Nicolas gtt start weaning milrinone slowly NG tube removed , start clear liguids continue diuresis , will need BP control pulm toileting, nebs ezpap OOB to chair with PT consult Dr Low ? EP study / Life Vest Objective: Vital Signs - 24 hr 03/27/18 10:25 03/27/18 11:00 03/27/18 13:20 Temperature 99.6 F 100.5 F H Pulse Rate 79 Respiratory Rate 43 H Blood Pressure 117/72 Pulse Oximetry 97 95 03/27/18 13:42 03/27/18 13:52 03/27/18 15:00 Temperature 99.8 F H Pulse Rate 84 Respiratory Rate 22 Blood Pressure 119/63 Pulse Oximetry 95 95 98 03/27/18 16:51 03/27/18 16:55 03/27/18 17:59 Temperature Pulse Rate 78 Respiratory Rate 22 32 H 22 Blood Pressure Pulse Oximetry 03/27/18 19:16 03/27/18 20:00 03/27/18 21:20 Temperature 97.9 F Pulse Rate 80 79 Respiratory Rate 16 30 H Blood Pressure 103/66 Pulse Oximetry 94 L 94 L 96 03/27/18 23:30 03/28/18 03:31 03/28/18 07:00 Temperature 98.0 F 98.0 F Pulse Rate 83 76 73 Respiratory Rate 18 17 20 Blood Pressure 130/78 101/67 121/64 Pulse Oximetry 97 96 89 L 03/28/18 08:00 03/28/18 08:01 Temperature Pulse Rate 78 Respiratory Rate 24 Blood Pressure Pulse Oximetry 92 L Labs: Laboratory Results - last 12 hr 03/28/18 08:58 POC Glucose 141 H Result Diagrams: 03/27/18 04:00 03/27/18 04:00 - Plan (2) Asthma Plan: on nebs, (3) Seizure Plan: pt not on meds at home (5) S/P CABG (coronary artery bypass graft) Plan: resume ASA, statin , plavix aggressive pulm toileting CV: -continue amiodarone 400 bid lasix q8 wean off milrinone slowly OOB consult Dr Low will need pt assistance HHC at discharge (6) History of CVA (cerebrovascular accident) Plan: CVA 2 Right internal carotid artery occlusion chronic on ASA plavix (9) Postoperative cardiac arrest Plan: on amiodarone will change to OG route and wean off IV will need EP study , consideration for Life Vest (10) Cocaine abuse Plan: counseled regarding cessation
[2018-03-28] MEDS: Amiodarone 200 MG Tablet PO SCH ×3 (10:44→22:08)
[2018-03-28] MEDS: Insulin NovoLOG Aspart Correctional Sugar Inj SQ SCH ×4 (10:47→23:42)
--- NOTE | 2018-03-28 11:03 | P.PNCC ---
Subjective Subjective Remarks/Hospital Course: A 52-year-old male with past medical history significant for stroke 2, occluded right internal carotid artery, continued tobacco use, asthma, seizure disorder who presented to the emergency department with chest pain. ER workup showed elevated troponin and he ruled in for a non-ST elevation [place]. He underwent cardiac catheterization 03/[address] Thomas which showed an ejection fraction of 25%, left main disease of 60% proximal LAD 95%, mid distal LAD 80%, circumflex was 95, the RCA 95. Intraaortic balloon pump was placed and CTS consulted for emergent coronary artery bypass graft. Patient underwent urgent off-pump Coronary Artery Bypass Grafting x 4 with Left Internal Mammary Artery to Left Anterior Descending, reverse saphenous vein graft to obtuse marginal branch of the left circumflex artery, reverse saphenous vein graft to the ramus marginalis, reverse saphenous vein graft to the diagonal 1 branch of the LAD. Apparently airway was anterior and glide scope was used for intubation. Post op patient was moved to the CVICU where I met him. Patient is currently sedated with 1.5 mcg/kg/h Precedex. Currently on Nicolas-Synephrine 60 mcg/min to maintain MAP above 65. There was dysfunction of intra-aortic balloon pump and this was subsequently removed by Dr. Santiago. Due to hypotension Nicolas-Synephrine was titrated up and patient was started on dobutamine at 2.5 mcg/kg/min. CXR was reviewed, showed bilateral pulmonary edema. Will increase nicolas to improve MAP , increase Dobutamine to 5 mcg/kg/min and then give Lasix 40 mg IVP STAT 03/24: Sedated with propofol. Remains on Dobutamine 2.5 mcg/kg/min and Nicolas at 120 mcg/ kg/min. UO 3.2 L after 40 mg IVP of Lasix. Wakes up and follows commands. O2 sats improved 03/25: Patient was extubated yesterday tolerated well initially. However around 4:30 PM patient developed V. fib arrest while being transferred from chair to bed. Patient was shocked twice intubated and placed on mechanical ventilation. See CPR procedure note. Postintubation chest x-ray showed pulmonary edema. Patient received 80 mg Lasix IV with good diuresis. He was started on amiodarone infusion. Currently chest x-ray shows persistent pulmonary edema. Currently he is on Nicolas-Synephrine 80 mcg/min. I have started him on scheduled Lasix with potassium replacement. Also will start on milrinone for inotropic given ejection fraction of approximately 20-25% and severe pulmonary edema 03/26: Remains critical but showing some signs of improvement. Achieving good diuresis and negative balance. CVP 11. Give additional 20 mg Lasix now, add Aldactone, increase milrinone to 0.375 mcg/kg/min. Start weaning trials. CXR show persistent but improving pulmonary edema 03/27: awake and following commands. becomes severely agitated with sedation wean. good diuresis overnight. less hypoxic. CXR though with still persistent pulmonary edema. hemodynamics are stable with CI 2.5 on phenylephrine and milrinone. 03/28: successfully extubated yesterday. doing well. diuresing adequately. Objective Vital Signs / I&O: Vital Signs 03/27/18 11:00 03/27/18 13:20 03/27/18 13:42 Temperature 38.1 C H Pulse Rate 79 Respiratory Rate 43 H Blood Pressure 117/72 Pulse Oximetry 97 95 95 03/27/18 13:52 03/27/18 15:00 03/27/18 16:51 Temperature 37.7 C H Pulse Rate 84 Respiratory Rate 22 22 Blood Pressure 119/63 Pulse Oximetry 95 98 03/27/18 16:55 03/27/18 17:59 03/27/18 19:16 Temperature 36.6 C Pulse Rate 78 80 Respiratory Rate 32 H 22 16 Blood Pressure 103/66 Pulse Oximetry 94 L 03/27/18 20:00 03/27/18 21:20 03/27/18 23:30 Temperature 36.7 C Pulse Rate 79 83 Respiratory Rate 30 H 18 Blood Pressure 130/78 Pulse Oximetry 94 L 96 97 03/28/18 03:31 03/28/18 07:00 03/28/18 08:00 Temperature 36.7 C Pulse Rate 76 73 Respiratory Rate 17 20 Blood Pressure 101/67 121/64 Pulse Oximetry 96 89 L 92 L 03/28/18 08:01 Temperature Pulse Rate 78 Respiratory Rate 24 Blood Pressure Pulse Oximetry Intake & Output 03/27/18 03/28/18 03/28/18 18:59 06:59 18:59 Intake Total 240 / 240 603 / 603 Output Total 2075 / 2075 1780 / 1780 Balance -1835 / -1835 -1177 / -1177 Weight 85 kg Intake: IV 200 / 200 553 / 553 Precedex Inj 400 MCG In NS Inj 100 / 100 253 / 253 96 ML @ 0.2 MCG/KG/HR 4.42 mls/ hr IV.CONT TITRATE PRN Rx#: [id number] Primacor Inj 20 MG In NS Inj 80 100 / 100 200 / 200 ML @ Per Protocol IV.CONT .Q0M [facility] Rx#:[id number] fentaNYL 10 mcg/mL Premix Drip 100 / 100 2,500 mcg In 250 ml @ 50 MCG/HR 5 mls/hr IV.SIG TITRATE PRN Rx #:[id number] Oral 40 / 40 50 / 50 Output: Urine Amount (Catheter) 2074 Indwelling Temp Sensing 2074 Catheter Other: # Bowel Movements 0 Result Diagrams: 03/27/18 04:00 03/27/18 04:00 Objective Remarks: GENERAL: This is a middle-aged patient, sitting in bed. CARDIOVASCULAR: Midline CABG incision dressing intact, C/D/I. on milrinone at 0.375 mcg/kg/min. RESPIRATORY: Air entry diminished bilaterally at the bases, with few basilar crackles GASTROINTESTINAL: Abdomen soft, non-tender, nondistended. no guarding. MUSCULOSKELETAL: Extremities without clubbing, cyanosis, or edema. Right groin site without hematoma where IABP was removed NEURO: RASS 0. cam -. follows commands. Assessment and Plan - Assessment and Plan Plan: ASSESSMENT: Ventricular fibrillation cardiac arrest Severe pulmonary edema Acute exacerbation of systolic heart failure acute hypoxic respiratory failure Cardiogenic shock Acute hypoxemic respiratory failure Acute non-ST elevation [place] status post CABG Severe multivessel coronary artery disease CVA 2 Right internal carotid artery occlusion chronic Cocaine use Tobacco abuse PLAN: NEURO: d/c fentanyl po pain meds per surgery. -As needed for pain control per CV orders -Daily sedation vacation -Watch for withdrawal, UDS +ve cocaine RESP: -Hypoxemic respiratory failure seems to be secondary to pulmonary edema, improving -Diuresis and inotropic agents as below -Currently on PRVC/PEEP 5. continue with daily SBTs. -Ventilator bundle. DuoNeb scheduled and as needed -Anterior airway clinically (prominent overbite, short thyromental distance). Intubated 03/24/18 with glide scope Grade 1 view CV: -Chest x-ray shows severe pulmonary edema, now improving, although still persistent radiographic evidence. -Scheduled Lasix 40 mg IV every 8 hours with potassium supplementation. continue this schedule as it appears to be working to adequately diurese the patient. -decrease milrinone to 0.25 mcg/kg/min. keep this today with a plan of transitioning off milrinone tomorrow if diuresis maintains. -Continue amiodarone gtt per protocol. -Resumed aspirin and Plavix 03/24/2018 -Lipitor 80 mg nightly -Avoid beta blockers early due to shock and recent cocaine use. would recommend low-dose ACEI for hypertension. would recommend against beta wilman use at any point given the patient's known history of ongoing cocaine use. GI: - IV PPI 40 q12 -advance diet slowly. : -Monitor renal function closely. Garcia catheter. -IV Lasix, Aldactone as above ID: -Perioperative antibiotics per cardiothoracic surgery HEME: -Monitor CBC, coags ENDO: -Electrolyte replacement per protocol -IV insulin per CVICU protocol PROPH: -PPI, chemical DVT prophylaxis with Lovenox 40 sq daily. OVERALL IMPRESSION: continues to improve. cardiogenic shock improving. continue forced diuresis. very slowly wean inotropic support. needs to start working with physical therapy.
[2018-03-28 11:10] LABS: Hematocrit 31.8 % (39.0-51.0); Hemoglobin 10.8 gm/dL (13.0-17.0); Mean Corpuscular Hemoglobin 29.5 pg (27.0-34.0); Mean Corpuscular Volume 86.8 fL (80.0-100.0); Mean Platelet Volume 7.8 fL (7.0-11.0); Platelet Count 305 th/mm3 (150-450); Red Blood Count 3.67 mil/mm3 (4.50-5.90); Red Cell Distribution Width 14.6 % (11.6-17.2); White Blood Count 7.7 th/mm3 (4.0-11.0)
[2018-03-28 11:42] LABS: Carbon Dioxide 25.2 meq/L (21.0-32.0); Magnesium 2.2 mg/dL (1.5-2.5); Potassium 3.7 meq/L (3.5-5.1)
--- NOTE | 2018-03-28 12:33 | P.PNCA ---
Subjective Interval history: extubated in mild distress Physical Exam Vital signs: Vital Signs 03/27/18 13:20 03/27/18 13:42 03/27/18 13:52 Temperature Pulse Rate Respiratory Rate Blood Pressure Pulse Oximetry 95 95 95 03/27/18 15:00 03/27/18 16:51 03/27/18 16:55 Temperature 99.8 F H Pulse Rate 84 78 Respiratory Rate 22 22 32 H Blood Pressure 119/63 Pulse Oximetry 98 03/27/18 17:59 03/27/18 19:16 03/27/18 20:00 Temperature 97.9 F Pulse Rate 80 Respiratory Rate 22 16 Blood Pressure 103/66 Pulse Oximetry 94 L 94 L 03/27/18 21:20 03/27/18 23:30 03/28/18 03:31 Temperature 98.0 F 98.0 F Pulse Rate 79 83 76 Respiratory Rate 30 H 18 17 Blood Pressure 130/78 101/67 Pulse Oximetry 96 97 96 03/28/18 07:00 03/28/18 08:00 03/28/18 08:01 Temperature Pulse Rate 73 78 Respiratory Rate 20 24 Blood Pressure 121/64 Pulse Oximetry 89 L 92 L Intake & Output 03/27/18 03/28/18 03/28/18 18:59 06:59 18:59 Intake Total 240 / 240 603 / 603 Output Total 2074 Balance -1835 / -1835 -1177 / -1177 Weight 85 kg Intake: IV 200 / 200 553 / 553 Precedex Inj 400 MCG In NS Inj 100 / 100 253 / 253 96 ML @ 0.2 MCG/KG/HR 4.42 mls/ hr IV.CONT TITRATE PRN Rx#: [id number] Primacor Inj 20 MG In NS Inj 80 100 / 100 200 / 200 ML @ Per Protocol IV.CONT .Q0M STACY Rx#:[id number] fentaNYL 10 mcg/mL Premix Drip 100 / 100 2,500 mcg In 250 ml @ 50 MCG/HR 5 mls/hr IV.SIG TITRATE PRN Rx #:[id number] Oral 40 / 40 50 / 50 Output: Urine Amount (Catheter) 2074 Indwelling Temp Sensing 2074 Catheter Other: # Bowel Movements 0 - Urinary Catheter Management Indwelling Temp Sensing Catheter Cath placed during this visit: yes Reason for continuing: Hourly intake/output Insertion date: 03/23/18 Insertion time: 07:38 Assessment and Plan - Assessment (1) CAD (coronary artery disease) Code(s): I25.10 - Atherosclerotic heart disease of [place] coronary artery without angina pectoris Status: Acute (2) CAD (coronary artery disease) Code(s): I25.10 - Atherosclerotic heart disease of [place] coronary artery without angina pectoris Status: Acute (3) Acute non-ST elevation myocardial infarction (NSTEMI) Code(s): I21.4 - Non-ST elevation (NSTEMI) myocardial infarction Status: Acute (4) S/P CABG (coronary artery bypass graft) Code(s): Z95.1 - Presence of aortocoronary bypass graft Status: Acute (5) Status post carotid surgery Code(s): Z98.890 - Other specified postprocedural states Status: Acute (6) Stroke Code(s): I63.9 - Cerebral infarction, unspecified Status: Acute - Plan 1.) CAD - pod# 4 s/p cabg, vf x epi and cv 03/24/18. intubated, on mil, amio and getting diuresed, u/o good, d/w nurse,continue aspirin, plavix, lipitor, amio, iabp out, patient strongly advised to stop smoking and cocaine
[2018-03-28] MEDS: Metoprolol Inj 5 MG/5 ML Vial IV.PUSH PRN ×3 (13:41→22:08)
[2018-03-28] MEDS: dilTIAZem 30 MG Tablet PO SCH ×3 (14:55→22:08)
[2018-03-28] MEDS ORDERED: LORazepam 0.5 MG Tablet PO ONE (23:21)
[2018-03-29] MEDS: Metoprolol Inj 5 MG/5 ML Vial IV.PUSH PRN (01:56)
[2018-03-29 05:22] LABS: Calcium 8.8 mg/dL (8.5-10.1); Carbon Dioxide 25.9 meq/L (21.0-32.0); Magnesium 2.2 mg/dL (1.5-2.5); Potassium 3.4 meq/L (3.5-5.1)
[2018-03-29] MEDS: Folic Acid 1 MG Tablet PO SCH (08:50)
[2018-03-29] MEDS: Spironolactone 25 MG Tablet PO SCH ×2 (08:50→19:09)
[2018-03-29] MEDS: Senna/Docusate Sodium 8.6/50 MG Tablet PO SCH (08:50)
[2018-03-29] MEDS: dilTIAZem 30 MG Tablet PO SCH ×2 (08:50→13:20)
--- NOTE | 2018-03-29 09:12 | MB ---
cc: Fouzia Low MD,Jose Thomas,Hesham Bassett MD DATE: 03/28/2018 REASON FOR CONSULTATION: Coronary artery disease, ventricular tachyarrhythmia, ventricular fibrillation requiring DC cardioversion. Mr. Briceño is a 52-year-old gentleman with history of coronary artery disease, who underwent coronary artery bypass grafting x4. He has a history of chronic smoker, and ejection fraction is 25%. The bypass grafting was done in 02/2018. Subsequently, the day after this, ultimately he developed ventricular fibrillation. He received 2 defibrillatory shocks. This gentleman, currently, is only on milrinone. I was consulted for evaluation and management. The chart was reviewed. The patient was evaluated. ALLERGIES: CODEINE. SOCIAL HISTORY: The gentleman used to smoke before hospitalization. FAMILY HISTORY: Noncontributory to his current medical condition. MEDICATIONS: He is currently on Primacor. As mentioned before, he is on amiodarone p.o. 400 mg twice a day. He is on aspirin. He is on Lipitor 80 mg a day. He is on Plavix 75 mg a day. He is on Cardizem p.o. 4 times a day. He is on Lasix IV, folic acid. He is also on Aldactone. REVIEW OF SYSTEMS: He is tired. He can barely maintain the conversation. Severe shortness of breath. PHYSICAL EXAMINATION: GENERAL: Alert, fully oriented, in bed. Severe shortness of breath, lying, ventilated. CARDIOVASCULAR: S1, S2, tachycardic. ABDOMEN: Soft. No mass. EXTREMITIES: Minimal edema. LABORATORY DATA: Electrocardiogram that was done on 03/22/2018 indicated sinus rhythm, diffuse ST changes. ASSESSMENT AND RECOMMENDATIONS: Mr. Briceño is status post coronary artery bypass grafting. The ventricular fibrillation episode had been over 24 hours, possible seizure. He is on amiodarone. He is developing heart failure symptom. This gentleman is going to need defibrillator for sudden secondary prevention, but first he needs to be stabilized. He is still on milrinone. This gentleman has shortness of breath with minimal activity. His medication needs to be optimized. I am going to decrease tomorrow morning the amiodarone down to 200 mg a day. Cardizem needs to be discontinued. Milrinone will be weaned. He should not be on milrinone over 48 hours. I had a long conversation with this gentleman. This gentleman will need at least 2-3 days to be optimized. Then, a defibrillator will be considered. MD ANDREI Rodriguez/rm/dann , 11:06 PM , 11:16 PM
[2018-03-29] MEDS: Multivitamin/Minerals Therapeutic Tablet PO SCH (10:27)
[2018-03-29] MEDS: Insulin NovoLOG Aspart Correctional Sugar Inj SQ SCH ×3 (10:27→18:39)
[2018-03-29] MEDS: Polyethylene Glycol 3350 17 GM Packet PO SCH (10:42)
[2018-03-29] MEDS: Enoxaparin Inj 40 MG/0.4 ML Syringe SQ SCH (10:43)
[2018-03-29] MEDS: Amiodarone 200 MG Tablet PO SCH ×4 (10:48→23:19)
[2018-03-29] MEDS: Docusate Sodium 100 MG Capsule PO SCH (10:48)
[2018-03-29] MEDS: Potassium Chloride 25 MEQ Effervescent Tablet PO SCH (10:49)
--- NOTE | 2018-03-29 12:50 | P.PNCV ---
- Note Subjective/Hospital Course: 52-year-old male transferred from [place] emergency department, who presented with chest pain after he was trying to unload a truck and had some acute central chest pain radiating to his neck with some shortness of breath. He was worked up in the emergency department and was found to have elevated troponins for a non-STEMI. He was transferred to the [facility] . He underwent cardiac catheterization 03/22/[address] Thomas which showed an ejection fraction of 25%, left main disease of 60% proximal LAD 95%, mid distal LAD 80%, circumflex was 95, the RCA 95. Intraaortic balloon pump was placed due to class IV CHF and his low ejection fraction. We were consulted for emergent coronary artery bypass graft. PMH: carotid artery disease, recent left carotid endarterectomy 08/2017 at [facility], history of asthma, seizure disorder, hiatal hernia, history of a recent CVA. residual left arm and left weakness, ETOH abuse 03/23 pt for surgery today 1. Urgent off-pump Coronary Artery Bypass Grafting x 4 with Left Internal Mammary Artery (ROJAS) to Left Anterior Descending (LAD), reverse saphenous vein graft to obtuse marginal branch of the left circumflex artery, reverse saphenous vein graft to the ramus marginalis, reverse saphenous vein graft to the diagonal 1 branch of the LAD 2. Right leg Endoscopic Vein [place] 3. Intraoperative Vein Mapping. 03/24 pt weaned of nicolas gtt this am , on dobutamine gtt at 2.5mcq very difficult to wean and extubate/ required fentanly and precedex pt was very agitated / uncooperative/ later calmed down and met extubation parameters extubated to nasal cannula 6 liters will need aggressive pulm toileting given dose of lasix this am , eval for BB this evening, since pt just weaned off Nicolas gtt add prn ativan for anxiety , add nabil arias , keep in CVICU for now IABP removed after surgery 03/25 Events from yesterday noted. Greatly appreciate 5th grade teacher input and assistance. Patient presently intubated and mechanically ventilated. Awakens and responds appropriately to verbal commands. No apparent neurologic deficit. 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 May need EP study prior to discharge. Will need LifeVest given his underlying cardiomyopathy. Had a lengthy discussion with his daughter, Leia, and her boyfriend regarding his clinical findings and all questions were answered. 03/26 Doing better this morning. Diuresing with current therapy. Awake and responds appropriately verbal commands. Weaning ventilator as tolerated. Chest tubes removed today. Hemodynamic support as indicated by critical care team. Greatly appreciate their input. 03/27 remains on vent CPAP mode/ 40% fio2 will follow commands , writing on paper on milrinone, amiodarone gtt, Nicolas gtt , lasix q8hr CO 5.4/ CI 2.6/ SVV 6 , CVP 11 03/28 sitting up in bed, weaned off Nicolas gtt start weaning milrinone slowly NG tube removed , start clear liguids continue diuresis , will need BP control pulm toileting, nebs ezpap OOB to chair with PT consult Dr Low ? EP study / Life Vest 02/26 milrinone weaned off , on , spoke with Dr Low will do EP study on Tuesday , optimize Heart failure discussed starting BB / will leave to Dr Low transfer to stepdown Objective: Vital Signs - 24 hr 03/28/18 13:41 03/28/18 15:00 03/28/18 18:35 Temperature 99.1 F Pulse Rate 98 H 97 H Respiratory Rate 20 20 20 Blood Pressure 133/87 Pulse Oximetry 94 L 03/28/18 19:30 03/28/18 22:46 03/28/18 23:00 Temperature 99.0 F 99.0 F Pulse Rate 95 H 95 H Respiratory Rate 18 18 Blood Pressure 157/76 H 157/76 H Pulse Oximetry 95 95 95 03/29/18 03:00 03/29/18 03:52 03/29/18 08:12 Temperature 99.0 F Pulse Rate 100 H 98 H Respiratory Rate 18 28 H Blood Pressure 125/79 Pulse Oximetry 95 96 03/29/18 08:30 03/29/18 11:00 Temperature 98.0 F 97.8 F Pulse Rate 104 H 102 H Respiratory Rate 20 18 Blood Pressure 120/77 145/88 H Pulse Oximetry 96 96 GENERAL: A&O x 3 , SKIN: Warm and dry. prevena dressing to chest HEAD: Normocephalic. EYES: No scleral icterus. No injection or drainage. NECK: Supple, trachea midline. No JVD or lymphadenopathy. CARDIOVASCULAR: Regular rate and rhythm without murmurs, gallops, or rubs. RESPIRATORY: Breath sounds equal bilaterally. No accessory muscle use. diminished in the bases , few crackles GASTROINTESTINAL: Abdomen soft, non-tender, nondistended. MUSCULOSKELETAL: No cyanosis, or edema. BACK: Nontender without obvious deformity. No CVA tenderness. Labs: Laboratory Results - last 12 hr 03/29/18 04:40 Sodium 136 Potassium 3.4 L Chloride 100 Carbon Dioxide 25.9 Anion Gap 10 BUN 20 H Creatinine 1.13 Estimated GFR 68 L Random Glucose 172 H Calcium 8.8 Magnesium 2.2 Result Diagrams: 03/28/18 10:30 03/29/18 04:40 Telemetry: NSR - Plan (2) Asthma Plan: on nebs, (3) Seizure Plan: pt not on meds at home (5) S/P CABG (coronary artery bypass graft) Plan: ASA, statin , plavix aggressive pulm toileting CV: -continue amiodarone [address] Low following will need pt assistance HHC at discharge (6) History of CVA (cerebrovascular accident) Plan: CVA 2 Right internal carotid artery occlusion chronic on ASA plavix (9) Postoperative cardiac arrest Plan: on amiodarone For EP study on Tuesday (10) Cocaine abuse Plan: counseled regarding cessation
[2018-03-29] MEDS: Nystatin Liq 500,000 UNIT/5 ML UDC SWISH-SWAL SCH ×2 (13:20→19:09)
--- NOTE | 2018-03-29 13:45 | P.PNCA ---
Subjective Interval history: alert in nad Physical Exam Vital signs: Vital Signs 03/28/18 15:00 03/28/18 18:35 03/28/18 19:30 Temperature 99.1 F 99.0 F Pulse Rate 98 H 97 H 95 H Respiratory Rate 20 20 18 Blood Pressure 133/87 157/76 H Pulse Oximetry 94 L 95 03/28/18 22:46 03/28/18 23:00 03/29/18 03:00 Temperature 99.0 F 99.0 F Pulse Rate 95 H 100 H Respiratory Rate 18 18 Blood Pressure 157/76 H 125/79 Pulse Oximetry 95 95 95 03/29/18 03:52 03/29/18 08:12 03/29/18 08:30 Temperature 98.0 F Pulse Rate 98 H 104 H Respiratory Rate 28 H 20 Blood Pressure 120/77 Pulse Oximetry 96 96 03/29/18 11:00 03/29/18 12:59 Temperature 97.8 F Pulse Rate 102 H 105 H Respiratory Rate 18 24 Blood Pressure 145/88 H Pulse Oximetry 96 Intake & Output 03/28/18 03/29/18 03/29/18 18:59 06:59 18:59 Intake Total 650 / 650 480 / 480 Output Total 1850 / 1850 650 / 650 Balance -1200 / -1200 -170 / -170 Weight 84 kg Intake: Oral 650 / 650 480 / 480 Output: Urine 1850 / 1850 650 / 650 Other: Date of Last Bowel Movement 03/28/18 03/28/18 # Bowel Movements 2 - Urinary Catheter Management Indwelling Temp Sensing Catheter Cath placed during this visit: yes, but has since been removed by the nurse Reason for continuing: Not indwelling catheter Insertion date: 03/23/18 Insertion time: 07:38 Removal date: 03/28/18 Removal time: 10:30 Assessment and Plan - Assessment (1) CAD (coronary artery disease) Code(s): I25.10 - Atherosclerotic heart disease of [place] coronary artery without angina pectoris Status: Acute (2) CAD (coronary artery disease) Code(s): I25.10 - Atherosclerotic heart disease of [place] coronary artery without angina pectoris Status: Acute (3) Acute non-ST elevation myocardial infarction (NSTEMI) Code(s): I21.4 - Non-ST elevation (NSTEMI) myocardial infarction Status: Acute (4) S/P CABG (coronary artery bypass graft) Code(s): Z95.1 - Presence of aortocoronary bypass graft Status: Acute (5) Status post carotid surgery Code(s): Z98.890 - Other specified postprocedural states Status: Acute (6) Stroke Code(s): I63.9 - Cerebral infarction, unspecified Status: Acute - Plan 1.) CAD - pod# 5 s/p cabg, vf x epi and cv 03/24/18. extubated, on mil, amio and getting diuresed, u/o good, d/w nurse,continue aspirin, plavix, lipitor, amio, iabp out, patient strongly advised to stop smoking and cocaine; Dr Low planning icd placement
--- NOTE | 2018-03-29 16:03 | P.PN ---
Subjective Interval history: SOB Physical Exam Vital signs: Vital Signs 03/28/18 18:35 03/28/18 19:30 03/28/18 22:46 Temperature 99.0 F Pulse Rate 97 H 95 H Respiratory Rate 20 18 Blood Pressure 157/76 H Pulse Oximetry 95 95 03/28/18 23:00 03/29/18 03:00 03/29/18 03:52 Temperature 99.0 F 99.0 F Pulse Rate 95 H 100 H 98 H Respiratory Rate 18 18 28 H Blood Pressure 157/76 H 125/79 Pulse Oximetry 95 95 03/29/18 08:12 03/29/18 08:30 03/29/18 11:00 Temperature 98.0 F 97.8 F Pulse Rate 104 H 102 H Respiratory Rate 20 18 Blood Pressure 120/77 145/88 H Pulse Oximetry 96 96 96 03/29/18 12:59 Temperature Pulse Rate 105 H Respiratory Rate 24 Blood Pressure Pulse Oximetry Intake & Output 03/28/18 03/29/18 03/29/18 18:59 06:59 18:59 Intake Total 650 / 650 480 / 480 Output Total 1850 / 1850 650 / 650 Balance -1200 / -1200 -170 / -170 Weight 84 kg Intake: Oral 650 / 650 480 / 480 Output: Urine 1850 / 1850 650 / 650 Other: Date of Last Bowel Movement 03/28/18 03/28/18 # Bowel Movements 2 - Constitutional moderate distress - Routine HEENT Exam Head: Present: normocephalic Eye: Present: PERRL ENT: Present: mucous membranes moist - Routine Respiratory Exam Present: wheezes - Routine Cardiovascular Exam Present: RRR, S1, S2, tachycardia - Routine Abdominal Exam Present: soft - Routine Neurological Exam Present: alert, oriented X3 - Urinary Catheter Management Indwelling Temp Sensing Catheter Cath placed during this visit: yes, but has since been removed by the nurse Reason for continuing: Not indwelling catheter Insertion date: 03/23/18 Insertion time: 07:38 Removal date: 03/28/18 Removal time: 10:30 Results - Labs CBC & Chem 7: 03/28/18 10:30 03/29/18 04:40 Laboratory Results - last 24 hr 03/28/18 03/28/18 03/29/18 16:19 22:22 04:40 Sodium 136 Potassium 3.4 L Chloride 100 Carbon Dioxide 25.9 Anion Gap 10 BUN 20 H Creatinine 1.13 Estimated GFR 68 L POC Glucose 129 H 130 H Random Glucose 172 H Calcium 8.8 Magnesium 2.2 Assessment and Plan - Assessment (1) CAD (coronary artery disease) Code(s): I25.10 - Atherosclerotic heart disease of [place] coronary artery without angina pectoris Status: Acute Plan: SP CABG. Severe SOB Milrinone DC today. HR high. Coreg added patient advise not to use drug out in the community. His condition is of care (2) Postoperative cardiac arrest Status: Acute Plan: SP cardiac arrest poost CABG EF 25% He will need defib before discharge home for secondary prevention. Case extensively discussed with him When stable, procedure will be considered
[2018-03-29] MEDS ORDERED: Potassium Chloride 10 MEQ ER Capsule PO ONE (22:16)
[2018-03-30] MEDS: Docusate Sodium 100 MG Capsule PO SCH ×2 (05:07→08:34)
[2018-03-30] MEDS: Potassium Chloride 25 MEQ Effervescent Tablet PO SCH ×2 (05:14→08:35)
[2018-03-30] MEDS: Senna/Docusate Sodium 8.6/50 MG Tablet PO SCH ×3 (05:21→21:13)
[2018-03-30] MEDS: Insulin NovoLOG Aspart Correctional Sugar Inj SQ SCH ×5 (05:22→21:13)
[2018-03-30] MEDS: Nystatin Liq 500,000 UNIT/5 ML UDC SWISH-SWAL SCH ×5 (05:22→21:12)
[2018-03-30] MEDS: Amiodarone 200 MG Tablet PO SCH ×3 (05:23→21:12)
[2018-03-30] MEDS: Acetaminophen 325 MG Tablet PO PRN (06:55)
--- NOTE | 2018-03-30 08:24 | P.PNCA ---
Subjective Interval history: Anxious, complains of not sleeping. Physical Exam Vital signs: Vital Signs 03/29/18 08:30 03/29/18 11:00 03/29/18 12:59 Temperature 98.0 F 97.8 F Pulse Rate 104 H 102 H 105 H Respiratory Rate 20 18 24 Blood Pressure 120/77 145/88 H Pulse Oximetry 96 96 03/29/18 15:00 03/29/18 19:00 03/29/18 20:00 Temperature 98.2 F 98.2 F Pulse Rate 102 H 98 H Respiratory Rate 20 16 Blood Pressure 127/82 138/90 Pulse Oximetry 96 97 96 03/29/18 21:10 03/29/18 23:00 03/30/18 00:00 Temperature 97.2 F L Pulse Rate 95 H 96 H 85 Respiratory Rate 20 16 Blood Pressure 117/79 Pulse Oximetry 93 L 03/30/18 03:00 03/30/18 05:08 03/30/18 05:21 Temperature 98.2 F Pulse Rate 92 H Respiratory Rate 16 16 16 Blood Pressure 128/88 Pulse Oximetry 98 03/30/18 07:31 03/30/18 07:34 03/30/18 07:40 Temperature 97.6 F Pulse Rate 92 H 92 H 89 Respiratory Rate 20 20 Blood Pressure 122/75 Pulse Oximetry 96 97 03/30/18 08:03 Temperature Pulse Rate Respiratory Rate Blood Pressure Pulse Oximetry 97 Intake & Output 03/29/18 03/30/18 03/30/18 18:59 06:59 18:59 Intake Total 600 / 600 780 / 780 Output Total 800 / 800 560 / 560 Balance -200 / -200 220 / 220 Weight 185 lb 3.013 oz Intake: Oral 600 / 600 780 / 780 Output: Urine 800 / 800 560 / 560 Other: # Voids 3 Date of Last Bowel Movement 03/28/18 03/28/18 Narrative: GENERAL: This is a well-nourished, well-developed patient, sitting up in a chair in no acute distress. Skin: Midline CABG incision dressing intact, C/D/I. CARDIOVASCULAR: S1, S2, regular rate and rhythm without rub murmur or gallop. GASTROINTESTINAL: Abdomen soft, non-tender, nondistended. Normal active bowel sounds MUSCULOSKELETAL: Extremities without clubbing, cyanosis, or edema. NEURO: Alert, oriented 4. Anxious. - Urinary Catheter Management Indwelling Temp Sensing Catheter Cath placed during this visit: yes, but has since been removed by the nurse Reason for continuing: Not indwelling catheter Insertion date: 03/23/18 Insertion time: 07:38 Removal date: 03/28/18 Removal time: 10:30 Assessment and Plan - Assessment (1) Postoperative cardiac arrest Status: Acute - Plan 1.) Pending stabilization will undergo ICD implantation for sudden cardiac prevention. EP/ICD scheduled for Tuesday tentatively. Assessment and plan discussed with patient, Dr. Low.
[2018-03-30] MEDS: Multivitamin/Minerals Therapeutic Tablet PO SCH (08:35)
[2018-03-30] MEDS: Folic Acid 1 MG Tablet PO SCH (08:35)
[2018-03-30] MEDS: Polyethylene Glycol 3350 17 GM Packet PO SCH (08:35)
[2018-03-30] MEDS: Enoxaparin Inj 40 MG/0.4 ML Syringe SQ SCH (08:35)
[2018-03-30] MEDS: Spironolactone 25 MG Tablet PO SCH ×2 (08:38→17:34)
--- NOTE | 2018-03-30 10:15 | P.PNCV ---
- Note Subjective/Hospital Course: 52-year-old male transferred from [place] emergency department, who presented with chest pain after he was trying to unload a truck and had some acute central chest pain radiating to his neck with some shortness of breath. He was worked up in the emergency department and was found to have elevated troponins for a non-STEMI. He was transferred to the [facility] . He underwent cardiac catheterization 03/22/[address] Thomas which showed an ejection fraction of 25%, left main disease of 60% proximal LAD 95%, mid distal LAD 80%, circumflex was 95, the RCA 95. Intraaortic balloon pump was placed due to class IV CHF and his low ejection fraction. We were consulted for emergent coronary artery bypass graft. PMH: carotid artery disease, recent left carotid endarterectomy 08/2017 at [facility], history of asthma, seizure disorder, hiatal hernia, history of a recent CVA. residual left arm and left weakness, ETOH abuse 03/23 pt for surgery today 1. Urgent off-pump Coronary Artery Bypass Grafting x 4 with Left Internal Mammary Artery (ROJAS) to Left Anterior Descending (LAD), reverse saphenous vein graft to obtuse marginal branch of the left circumflex artery, reverse saphenous vein graft to the ramus marginalis, reverse saphenous vein graft to the diagonal 1 branch of the LAD 2. Right leg Endoscopic Vein [place] 3. Intraoperative Vein Mapping. 03/24 pt weaned of nicolas gtt this am , on dobutamine gtt at 2.5mcq very difficult to wean and extubate/ required fentanly and precedex pt was very agitated / uncooperative/ later calmed down and met extubation parameters extubated to nasal cannula 6 liters will need aggressive pulm toileting given dose of lasix this am , eval for BB this evening, since pt just weaned off Nicolas gtt add prn ativan for anxiety , add nabil arias , keep in CVICU for now IABP removed after surgery 03/25 Events from yesterday noted. Greatly appreciate fixed route bus operator input and assistance. Patient presently intubated and mechanically ventilated. Awakens and responds appropriately to verbal commands. No apparent neurologic deficit. 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 May need EP study prior to discharge. Will need LifeVest given his underlying cardiomyopathy. Had a lengthy discussion with his daughter, Leia, and her boyfriend regarding his clinical findings and all questions were answered. 03/26 Doing better this morning. Diuresing with current therapy. Awake and responds appropriately verbal commands. Weaning ventilator as tolerated. Chest tubes removed today. Hemodynamic support as indicated by critical care team. Greatly appreciate their input. 03/27 remains on vent CPAP mode/ 40% fio2 will follow commands , writing on paper on milrinone, amiodarone gtt, Nicolas gtt , lasix q8hr CO 5.4/ CI 2.6/ SVV 6 , CVP 11 03/28 sitting up in bed, weaned off Nicolas gtt start weaning milrinone slowly NG tube removed , start clear liguids continue diuresis , will need BP control pulm toileting, nebs ezpap OOB to chair with PT consult Dr Low ? EP study / Life Vest 02/26 milrinone weaned off , on cardi, spoke with Dr Low will do EP study on Tuesday , optimize Heart failure discussed starting BB / will leave to Dr Low transfer to [facility] 02/27 doing slightly better, BNP 289/ continue lasix bid EP study for Tuesday on coreg, amiodarone / discussed combination of BB and cocaine use with pt and daughter check CXR in am , transfer to [facility] Objective: Vital Signs - 24 hr 03/29/18 11:00 03/29/18 12:59 03/29/18 15:00 Temperature 97.8 F 98.2 F Pulse Rate 102 H 105 H 102 H Respiratory Rate 18 24 20 Blood Pressure 145/88 H 127/82 Pulse Oximetry 96 96 03/29/18 19:00 03/29/18 20:00 03/29/18 21:10 Temperature 98.2 F Pulse Rate 98 H 95 H Respiratory Rate 16 20 Blood Pressure 138/90 Pulse Oximetry 97 96 03/29/18 23:00 03/30/18 00:00 03/30/18 03:00 Temperature 97.2 F L 98.2 F Pulse Rate 96 H 85 92 H Respiratory Rate 16 16 Blood Pressure 117/79 128/88 Pulse Oximetry 93 L 98 03/30/18 05:08 03/30/18 05:21 03/30/18 07:31 Temperature Pulse Rate 92 H Respiratory Rate 16 16 Blood Pressure Pulse Oximetry 03/30/18 07:34 03/30/18 07:40 03/30/18 08:03 Temperature 97.6 F Pulse Rate 92 H 89 Respiratory Rate 20 20 Blood Pressure 122/75 Pulse Oximetry 96 97 97 GENERAL: A&O x 3 SKIN: Warm and dry.prevena dressing to chest , incision intact to right leg HEAD: Normocephalic. EYES: No scleral icterus. No injection or drainage. NECK: Supple, trachea midline. No JVD or lymphadenopathy. CARDIOVASCULAR: Regular rate and rhythm without murmurs, gallops, or rubs. RESPIRATORY: Breath sounds equal bilaterally. No accessory muscle use. few basilar crackles more diminished left lower base GASTROINTESTINAL: Abdomen soft, non-tender, nondistended. MUSCULOSKELETAL: No cyanosis, or edema. BACK: Nontender without obvious deformity. No CVA tenderness. Labs: Laboratory Results - last 12 hr 03/30/18 03/30/18 04:02 08:12 POC Glucose 134 H B-Natriuretic Peptide 289 H Result Diagrams: 03/28/18 10:30 03/29/18 04:40 EKG: NSR - Plan (2) Asthma Plan: on nebs, (3) Seizure Plan: pt not on meds at home (5) S/P CABG (coronary artery bypass graft) Plan: ASA, statin , plavix aggressive pulm toileting CV: -continue amiodarone [address] Low following will need pt assistance C at discharge (6) History of CVA (cerebrovascular accident) Plan: CVA 2 Right internal carotid artery occlusion chronic on ASA plavix (9) Postoperative cardiac arrest Plan: on amiodarone For EP study on Tuesday (10) Cocaine abuse Plan: counseled regarding cessation
[2018-03-30 12:31] LABS: Calcium 9.8 mg/dL (8.5-10.1); Carbon Dioxide 30.3 meq/L (21.0-32.0); Magnesium 2.2 mg/dL (1.5-2.5); Potassium 3.4 meq/L (3.5-5.1)
--- NOTE | 2018-03-30 13:54 | P.PNCA ---
Subjective Interval history: alert in nad Physical Exam Vital signs: Vital Signs 03/29/18 15:00 03/29/18 19:00 03/29/18 20:00 Temperature 98.2 F 98.2 F Pulse Rate 102 H 98 H Respiratory Rate 20 16 Blood Pressure 127/82 138/90 Pulse Oximetry 96 97 96 03/29/18 21:10 03/29/18 23:00 03/30/18 00:00 Temperature 97.2 F L Pulse Rate 95 H 96 H 85 Respiratory Rate 20 16 Blood Pressure 117/79 Pulse Oximetry 93 L 03/30/18 03:00 03/30/18 05:08 03/30/18 05:21 Temperature 98.2 F Pulse Rate 92 H Respiratory Rate 16 16 16 Blood Pressure 128/88 Pulse Oximetry 98 03/30/18 07:31 03/30/18 07:34 03/30/18 07:40 Temperature 97.6 F Pulse Rate 92 H 92 H 89 Respiratory Rate 20 20 Blood Pressure 122/75 Pulse Oximetry 96 97 03/30/18 08:03 03/30/18 11:03 03/30/18 11:05 Temperature 97.9 F Pulse Rate 89 92 H Respiratory Rate 20 Blood Pressure 148/70 H Pulse Oximetry 97 95 03/30/18 13:16 Temperature Pulse Rate 92 H Respiratory Rate 18 Blood Pressure Pulse Oximetry Intake & Output 03/29/18 03/30/18 03/30/18 18:59 06:59 18:59 Intake Total 600 / 600 780 / 780 Output Total 800 / 800 560 / 560 Balance -200 / -200 220 / 220 Weight 84 kg Intake: Oral 600 / 600 780 / 780 Output: Urine 800 / 800 560 / 560 Other: # Voids 3 Date of Last Bowel Movement 03/28/18 03/28/18 - Urinary Catheter Management Indwelling Temp Sensing Catheter Cath placed during this visit: yes, but has since been removed by the nurse Reason for continuing: Not indwelling catheter Insertion date: 03/23/18 Insertion time: 07:38 Removal date: 03/28/18 Removal time: 10:30 Assessment and Plan - Assessment (1) CAD (coronary artery disease) Code(s): I25.10 - Atherosclerotic heart disease of [place] coronary artery without angina pectoris Status: Acute (2) CAD (coronary artery disease) Code(s): I25.10 - Atherosclerotic heart disease of [place] coronary artery without angina pectoris Status: Acute (3) Acute non-ST elevation myocardial infarction (NSTEMI) Code(s): I21.4 - Non-ST elevation (NSTEMI) myocardial infarction Status: Acute (4) S/P CABG (coronary artery bypass graft) Code(s): Z95.1 - Presence of aortocoronary bypass graft Status: Acute (5) Status post carotid surgery Code(s): Z98.890 - Other specified postprocedural states Status: Acute (6) Stroke Code(s): I63.9 - Cerebral infarction, unspecified Status: Acute - Plan 1.) Pending stabilization will undergo ICD implantation for sudden cardiac prevention. EP/ICD scheduled for Tuesday tentatively. Assessment and plan discussed with patient, Dr. Low.
--- NOTE | 2018-03-31 04:38 | XR ---
EXAM DATE: 03/31/2018 4:23 AM EDT AGE/SEX: 52 years / Male INDICATIONS: Short of breath. CLINICAL DATA: This is the patient's subsequent encounter. Patient reports that signs and symptoms h ave been present for 1 week and indicates a pain score of 4/10. MEDICAL/SURGICAL HISTORY: . Hypertension. Stroke. CABG. COMPARISON: C, CHEST 1V SINGLE AP, 03/27/2018. . FINDINGS: There is persisting consolidation left mid and lower lung with loss of delineation of the entire left hemidiaphragm and left heart border. Opacity tracks along the lateral margin of the left chest christine cteristic of associated pleural effusion. There is improved aeration in the right lower lung with par tially resolved consolidation. Stable cardiomegaly. Interval extubation and removal of central line a nd gastric tube. CONCLUSION: Persistent left lower lobe consolidation and improving right lower lung consolidation. Electronically signed by: Jayy Hernandez MD 03/31/2018 4:36 AM EDT
[2018-03-31 04:44] LABS: Carbon Dioxide 31.3 meq/L (21.0-32.0); Magnesium 2.1 mg/dL (1.5-2.5); Potassium 3.6 meq/L (3.5-5.1)
[2018-03-31] MEDS ORDERED: Docusate Sodium 100 MG Capsule PO SCH (09:00)
[2018-03-31] MEDS ORDERED: Docusate Sodium 100 MG Capsule PO PRN (09:03)
[2018-03-31] MEDS ORDERED: Potassium Chloride 25 MEQ Effervescent Tablet PO ONE (09:03)
[2018-03-31] MEDS: Insulin NovoLOG Aspart Correctional Sugar Inj SQ SCH (09:10)
[2018-03-31] MEDS ORDERED: Piperacil/Tazo 4.5 GM Premix 4.5 GM/100 ML BAG IV.SIG SCH (09:15)
[2018-03-31] MEDS: Multivitamin/Minerals Therapeutic Tablet PO SCH (09:29)
[2018-03-31] MEDS: Polyethylene Glycol 3350 17 GM Packet PO SCH (09:30)
[2018-03-31] MEDS: Folic Acid 1 MG Tablet PO SCH (09:30)
[2018-03-31] MEDS: Enoxaparin Inj 40 MG/0.4 ML Syringe SQ SCH (09:30)
[2018-03-31] MEDS: Senna/Docusate Sodium 8.6/50 MG Tablet PO SCH ×2 (09:31→22:04)
[2018-03-31] MEDS: Spironolactone 25 MG Tablet PO SCH ×2 (09:32→17:01)
[2018-03-31] MEDS: Nystatin Liq 500,000 UNIT/5 ML UDC SWISH-SWAL SCH (09:50)
[2018-03-31] MEDS: Amiodarone 200 MG Tablet PO SCH ×2 (09:51→20:41)
[2018-03-31] MEDS: Piperacil/Tazo 4.5 GM Premix 4.5 GM/100 ML BAG IV.SIG SCH ×3 (10:16→22:00)
--- NOTE | 2018-03-31 13:03 | P.PNCA ---
Subjective Interval history: alert in nad Physical Exam Vital signs: Vital Signs 03/30/18 13:16 03/30/18 15:00 03/30/18 18:59 Temperature 98.2 F Pulse Rate 92 H 93 H 104 H Respiratory Rate 18 18 Blood Pressure 122/79 Pulse Oximetry 94 L 03/30/18 19:00 03/30/18 20:40 03/30/18 21:20 Temperature 97.7 F Pulse Rate 99 H 91 H Respiratory Rate 19 Blood Pressure 121/82 Pulse Oximetry 95 95 03/30/18 22:00 03/30/18 23:00 03/31/18 01:58 Temperature 98.0 F Pulse Rate 90 96 H 86 Respiratory Rate 21 Blood Pressure 119/80 Pulse Oximetry 94 L 03/31/18 02:27 03/31/18 03:19 03/31/18 04:56 Temperature 98.2 F Pulse Rate 96 H 93 H 74 Respiratory Rate 22 Blood Pressure 124/62 Pulse Oximetry 92 L 03/31/18 05:22 03/31/18 06:00 03/31/18 07:00 Temperature 98.7 F Pulse Rate 97 H 84 96 H Respiratory Rate 18 Blood Pressure 118/76 Pulse Oximetry 91 L 03/31/18 08:00 03/31/18 09:00 03/31/18 10:00 Temperature Pulse Rate 96 H 97 H 93 H Respiratory Rate Blood Pressure Pulse Oximetry 03/31/18 11:00 03/31/18 12:00 03/31/18 13:00 Temperature 98.6 F Pulse Rate 89 91 H 92 H Respiratory Rate 18 Blood Pressure 108/71 Pulse Oximetry 93 L Intake & Output 03/30/18 03/31/18 03/31/18 18:59 06:59 18:59 Intake Total 480 / 480 480 / 480 100 / 100 Output Total 550 / 550 Balance 480 / 480 -70 / -70 100 / 100 Weight 82.5 kg Intake: IV 100 / 100 Zosyn 4.5 GM Premix 4.5 gm In 100 / 100 100 ml @ 200 mls/hr IV.SIG Q6H STACY Rx#:[id number] Oral 480 / 480 480 / 480 Output: Urine 550 / 550 Other: # Voids 2 Date of Last Bowel Movement 03/30/18 # Bowel Movements 2 - Urinary Catheter Management Indwelling Temp Sensing Catheter Cath placed during this visit: yes, but has since been removed by the nurse Reason for continuing: Not indwelling catheter Insertion date: 03/23/18 Insertion time: 07:38 Removal date: 03/28/18 Removal time: 10:30 Assessment and Plan - Assessment (1) CAD (coronary artery disease) Code(s): I25.10 - Atherosclerotic heart disease of [place] coronary artery without angina pectoris Status: Acute (2) CAD (coronary artery disease) Code(s): I25.10 - Atherosclerotic heart disease of [place] coronary artery without angina pectoris Status: Acute (3) Acute non-ST elevation myocardial infarction (NSTEMI) Code(s): I21.4 - Non-ST elevation (NSTEMI) myocardial infarction Status: Acute (4) S/P CABG (coronary artery bypass graft) Code(s): Z95.1 - Presence of aortocoronary bypass graft Status: Acute (5) Status post carotid surgery Code(s): Z98.890 - Other specified postprocedural states Status: Acute (6) Stroke Code(s): I63.9 - Cerebral infarction, unspecified Status: Acute - Plan 1.) Pending stabilization will undergo ICD implantation for sudden cardiac prevention. EP/ICD scheduled for Tuesday tentatively. Assessment and plan discussed with patient, Dr. Low.
--- NOTE | 2018-03-31 13:36 | P.PNCV ---
- Note Subjective/Hospital Course: 52-year-old male transferred from [place] emergency department, who presented with chest pain after he was trying to unload a truck and had some acute central chest pain radiating to his neck with some shortness of breath. He was worked up in the emergency department and was found to have elevated troponins for a non-STEMI. He was transferred to the [facility] . He underwent cardiac catheterization 03/22/[address] Thomas which showed an ejection fraction of 25%, left main disease of 60% proximal LAD 95%, mid distal LAD 80%, circumflex was 95, the RCA 95. Intraaortic balloon pump was placed due to class IV CHF and his low ejection fraction. We were consulted for emergent coronary artery bypass graft. PMH: carotid artery disease, recent left carotid endarterectomy 08/2017 at [facility], history of asthma, seizure disorder, hiatal hernia, history of a recent CVA. residual left arm and left weakness, ETOH abuse 03/23 pt for surgery today 1. Urgent off-pump Coronary Artery Bypass Grafting x 4 with Left Internal Mammary Artery (ROJAS) to Left Anterior Descending (LAD), reverse saphenous vein graft to obtuse marginal branch of the left circumflex artery, reverse saphenous vein graft to the ramus marginalis, reverse saphenous vein graft to the diagonal 1 branch of the LAD 2. Right leg Endoscopic Vein [place] 3. Intraoperative Vein Mapping. 03/24 pt weaned of nicolas gtt this am , on dobutamine gtt at 2.5mcq very difficult to wean and extubate/ required fentanly and precedex pt was very agitated / uncooperative/ later calmed down and met extubation parameters extubated to nasal cannula 6 liters will need aggressive pulm toileting given dose of lasix this am , eval for BB this evening, since pt just weaned off Nicolas gtt add prn ativan for anxiety , add nabil arias , keep in CVICU for now IABP removed after surgery 03/25 Events from yesterday noted. Greatly appreciate newspaper editor input and assistance. Patient presently intubated and mechanically ventilated. Awakens and responds appropriately to verbal commands. No apparent neurologic deficit. 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 May need EP study prior to discharge. Will need LifeVest given his underlying cardiomyopathy. Had a lengthy discussion with his daughter, Leia, and her boyfriend regarding his clinical findings and all questions were answered. 03/26 Doing better this morning. Diuresing with current therapy. Awake and responds appropriately verbal commands. Weaning ventilator as tolerated. Chest tubes removed today. Hemodynamic support as indicated by critical care team. Greatly appreciate their input. 03/27 remains on vent CPAP mode/ 40% fio2 will follow commands , writing on paper on milrinone, amiodarone gtt, Nicolas gtt , lasix q8hr CO 5.4/ CI 2.6/ SVV 6 , CVP 11 03/28 sitting up in bed, weaned off Nicolas gtt start weaning milrinone slowly NG tube removed , start clear liguids continue diuresis , will need BP control pulm toileting, nebs ezpap OOB to chair with PT consult Dr Low ? EP study / Life Vest 02/26 milrinone weaned off , on cardize, spoke with Dr Low will do EP study on Tuesday , optimize Heart failure discussed starting BB / will leave to Dr Low [facility] 02[facility]27 doing slightly better, BNP 289/ continue lasix bid EP study for Tuesday on coreg, amiodarone / discussed combination of BB and cocaine use with pt and daughter check CXR in am , transfer to stepdown 02/28 lasix dose reduced, amiodarone to 200mg bid dc GI motility meds add zosyn for now with left lower lobe consolidation for EP study tuesday Objective: Vital Signs - 24 hr 03/30/18 15:00 03/30/18 18:59 03/30/18 19:00 Temperature 98.2 F 97.7 F Pulse Rate 93 H 104 H 99 H Respiratory Rate 18 19 Blood Pressure 122/79 121/82 Pulse Oximetry 94 L 95 03/30/18 20:40 03/30/18 21:20 03/30/18 22:00 Temperature Pulse Rate 91 H 90 Respiratory Rate Blood Pressure Pulse Oximetry 95 03/30/18 23:00 03/31/18 01:58 03/31/18 02:27 Temperature 98.0 F Pulse Rate 96 H 86 96 H Respiratory Rate 21 Blood Pressure 119/80 Pulse Oximetry 94 L 03/31/18 03:19 03/31/18 04:56 03/31/18 05:22 Temperature 98.2 F Pulse Rate 93 H 74 97 H Respiratory Rate 22 Blood Pressure 124/62 Pulse Oximetry 92 L 03/31/18 06:00 03/31/18 07:00 03/31/18 08:00 Temperature 98.7 F Pulse Rate 84 96 H 96 H Respiratory Rate 18 Blood Pressure 118/76 Pulse Oximetry 91 L 03/31/18 09:00 03/31/18 10:00 03/31/18 11:00 Temperature 98.6 F Pulse Rate 97 H 93 H 89 Respiratory Rate 18 Blood Pressure 108/71 Pulse Oximetry 93 L 03/31/18 12:00 03/31/18 13:00 03/31/18 13:27 Temperature Pulse Rate 91 H 92 H 85 Respiratory Rate Blood Pressure Pulse Oximetry GENERAL: A&O x 3 SKIN: Warm and dry. sternal incision intact and well approximated HEAD: Normocephalic. EYES: No scleral icterus. No injection or drainage. NECK: Supple, trachea midline. No JVD or lymphadenopathy. CARDIOVASCULAR: Regular rate and rhythm without murmurs, gallops, or rubs. RESPIRATORY: Breath sounds equal bilaterally. No accessory muscle use. diminsihed left lower lobe GASTROINTESTINAL: Abdomen soft, non-tender, nondistended. MUSCULOSKELETAL: No cyanosis, or edema. BACK: Nontender without obvious deformity. No CVA tenderness. Labs: Laboratory Results - last 12 hr 03/31/18 03/31/18 03:51 09:09 Sodium 136 Potassium 3.6 Chloride 97 L Carbon Dioxide 31.3 Anion Gap 8 BUN 19 H Creatinine 1.10 Estimated GFR 70 L POC Glucose 149 H Random Glucose 124 H Calcium 9.0 D Magnesium 2.1 Result Diagrams: 03/28/18 10:30 03/31/18 03:51 - Plan (2) Asthma Plan: on nebs, (3) Seizure Plan: pt not on meds at home (5) S/P CABG (coronary artery bypass graft) Plan: ASA, statin , plavix aggressive pulm toileting CV: -continue amiodarone [address] Low following instructed for no driving for 4 weeks will need pt assistance HHC at discharge (6) History of CVA (cerebrovascular accident) Plan: CVA 2 Right internal carotid artery occlusion chronic on ASA plavix (9) Postoperative cardiac arrest Plan: on amiodarone For EP study on Tuesday (10) Cocaine abuse Plan: counseled regarding cessation
[2018-03-31] MEDS: Magnesium Oxide 400 MG Tablet PO SCH (20:41)
[2018-04-01] MEDS: Piperacil/Tazo 4.5 GM Premix 4.5 GM/100 ML BAG IV.SIG SCH ×4 (03:03→22:25)
[2018-04-01] MEDS: Amiodarone 200 MG Tablet PO SCH ×2 (10:12→20:24)
[2018-04-01] MEDS: Magnesium Oxide 400 MG Tablet PO SCH ×2 (10:12→20:25)
[2018-04-01] MEDS: Multivitamin/Minerals Therapeutic Tablet PO SCH (10:13)
[2018-04-01] MEDS: Folic Acid 1 MG Tablet PO SCH (10:13)
[2018-04-01] MEDS: Senna/Docusate Sodium 8.6/50 MG Tablet PO SCH ×2 (10:13→20:29)
[2018-04-01] MEDS: Enoxaparin Inj 40 MG/0.4 ML Syringe SQ SCH (10:13)
[2018-04-01] MEDS: Spironolactone 25 MG Tablet PO SCH ×2 (10:17→17:06)
--- NOTE | 2018-04-01 10:23 | P.PNCV ---
- Note CVT: Post Op Day #: 9 Subjective/Hospital Course: 52-year-old male transferred from [place] emergency department, who presented with chest pain after he was trying to unload a truck and had some acute central chest pain radiating to his neck with some shortness of breath. He was worked up in the emergency department and was found to have elevated troponins for a non-STEMI. He was transferred to the [facility] . He underwent cardiac catheterization 03/22/[address] Thomas which showed an ejection fraction of 25%, left main disease of 60% proximal LAD 95%, mid distal LAD 80%, circumflex was 95, the RCA 95. Intraaortic balloon pump was placed due to class IV CHF and his low ejection fraction. We were consulted for emergent coronary artery bypass graft. PMH: carotid artery disease, recent left carotid endarterectomy 08/2017 at [facility], history of asthma, seizure disorder, hiatal hernia, history of a recent CVA. residual left arm and left weakness, ETOH abuse 03/23 pt for surgery today 1. Urgent off-pump Coronary Artery Bypass Grafting x 4 with Left Internal Mammary Artery (ROJAS) to Left Anterior Descending (LAD), reverse saphenous vein graft to obtuse marginal branch of the left circumflex artery, reverse saphenous vein graft to the ramus marginalis, reverse saphenous vein graft to the diagonal 1 branch of the LAD 2. Right leg Endoscopic Vein [place] 3. Intraoperative Vein Mapping. 03/24 pt weaned of nicolas gtt this am , on dobutamine gtt at 2.5mcq very difficult to wean and extubate/ required fentanly and precedex pt was very agitated / uncooperative/ later calmed down and met extubation parameters extubated to nasal cannula 6 liters will need aggressive pulm toileting given dose of lasix this am , eval for BB this evening, since pt just weaned off Nicolas gtt add prn ativan for anxiety , add nabil arias , keep in CVICU for now IABP removed after surgery 03/25 Events from yesterday noted. Greatly appreciate customer service leader input and assistance. Patient presently intubated and mechanically ventilated. Awakens and responds appropriately to verbal commands. No apparent neurologic deficit. 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 May need EP study prior to discharge. Will need LifeVest given his underlying cardiomyopathy. Had a lengthy discussion with his daughter, Leia, and her boyfriend regarding his clinical findings and all questions were answered. 03/26 Doing better this morning. Diuresing with current therapy. Awake and responds appropriately verbal commands. Weaning ventilator as tolerated. Chest tubes removed today. Hemodynamic support as indicated by critical care team. Greatly appreciate their input. 03/27 remains on vent CPAP mode/ 40% fio2 will follow commands , writing on paper on milrinone, amiodarone gtt, Nicolas gtt , lasix q8hr CO 5.4/ CI 2.6/ SVV 6 , CVP 11 03/28 sitting up in bed, weaned off Nicolas gtt start weaning milrinone slowly NG tube removed , start clear liguids continue diuresis , will need BP control pulm toileting, nebs ezpap OOB to chair with PT consult Dr Low ? EP study / Life Vest 03/29 milrinone weaned off , on cardize, spoke with Dr Low will do EP study on Tuesday , optimize Heart failure discussed starting BB / will leave to Dr Low transfer to stepdown 03/30 doing slightly better, BNP 289/ continue lasix bid EP study for Tuesday on coreg, amiodarone / discussed combination of BB and cocaine use with pt and daughter check CXR in am , transfer to stepdown 03/31 lasix dose reduced, amiodarone to 200mg bid dc GI motility meds add zosyn for now with left lower lobe consolidation for EP study tuesday04/01/18 No complaints except he is upset about being on fall precautions. Objective: Vital Signs - 24 hr 03/31/18 11:00 03/31/18 12:00 03/31/18 13:00 Temperature 98.6 F Pulse Rate 89 91 H 92 H Respiratory Rate 18 Blood Pressure 108/71 Pulse Oximetry 93 L 03/31/18 13:27 03/31/18 13:54 03/31/18 15:00 Temperature 98.2 F Pulse Rate 85 77 89 Respiratory Rate 16 18 Blood Pressure 115/68 Pulse Oximetry 98 95 03/31/18 16:00 03/31/18 17:00 03/31/18 17:37 Temperature Pulse Rate 91 H 95 H 90 Respiratory Rate Blood Pressure Pulse Oximetry 03/31/18 19:20 03/31/18 20:00 03/31/18 20:01 Temperature 98.1 F Pulse Rate 94 H 80 82 Respiratory Rate 19 14 Blood Pressure 111/71 Pulse Oximetry 93 L 03/31/18 21:00 03/31/18 22:00 03/31/18 23:00 Temperature 98.4 F Pulse Rate 79 92 H 89 Respiratory Rate 20 Blood Pressure 108/66 Pulse Oximetry 94 L 03/31/18 23:20 04/01/18 00:06 04/01/18 01:28 Temperature Pulse Rate 84 77 86 Respiratory Rate Blood Pressure Pulse Oximetry 04/01/18 02:57 04/01/18 03:49 04/01/18 04:08 Temperature 98.2 F Pulse Rate 84 89 84 Respiratory Rate 19 Blood Pressure 107/64 Pulse Oximetry 92 L 04/01/18 05:06 04/01/18 06:28 04/01/18 07:00 Temperature Pulse Rate 88 85 94 H Respiratory Rate Blood Pressure Pulse Oximetry 04/01/18 08:00 04/01/18 08:04 04/01/18 09:00 Temperature 97.7 F Pulse Rate 88 87 88 Respiratory Rate 16 Blood Pressure 104/73 Pulse Oximetry 94 L Result Diagrams: 03/28/18 10:30 03/31/18 03:51 Imaging: Chest CTA 03/21/18 15:17 CONCLUSION: 1. No evidence of pulmonary embolism. 2. 2 noncalcified pulmonary nodules. A six-month follow-up noncontrast chest CT is recommended according to the guidelines. 3. Coronary artery calcifications. Carotid Doppler Study 03/22/18 14:30 CONCLUSION: 1. Significant plaque in the right carotid system with apparent occlusion of the mid and distal internal carotid artery. 2. Nonvisualization of the right vertebral artery consistent with occlusion. 3. Further evaluation with MR angiography or CT angiography would be recommended. Lower Extremity Ultrasound 03/22/18 14:30 CONCLUSION: Venous Doppler Study 03/22/18 14:30 CONCLUSION: 1. Negative examination with no evidence of deep venous thrombosis. Chest X-Ray 03/31/18 06:00 CONCLUSION: Persistent left lower lobe consolidation and improving right lower lung consolidation. Cardiovascular: RRR Pulmonary: CTA Incision: dry and intact - Plan (2) Asthma Plan: on nebs, (3) Seizure Plan: pt not on meds at home (5) S/P CABG (coronary artery bypass graft) Plan: ASA, statin , plavix aggressive pulm toileting CV: -continue amiodarone [address] Low following instructed for no driving for 4 weeks will need pt assistance HHC at discharge (6) History of CVA (cerebrovascular accident) Plan: CVA 2 Right internal carotid artery occlusion chronic on ASA plavix (9) Postoperative cardiac arrest Plan: on amiodarone For EP study on Tuesday (10) Cocaine abuse Plan: counseled regarding cessation Encourage ambulation EP study Tuesday
[2018-04-01] MEDS: Polyethylene Glycol 3350 17 GM Packet PO SCH (10:31)
--- NOTE | 2018-04-01 13:15 | P.PNCA ---
Subjective Interval history: alert in nad Physical Exam Vital signs: Vital Signs 03/31/18 13:27 03/31/18 13:54 03/31/18 15:00 Temperature 98.2 F Pulse Rate 85 77 89 Respiratory Rate 16 18 Blood Pressure 115/68 Pulse Oximetry 98 95 03/31/18 16:00 03/31/18 17:00 03/31/18 17:37 Temperature Pulse Rate 91 H 95 H 90 Respiratory Rate Blood Pressure Pulse Oximetry 03/31/18 19:20 03/31/18 20:00 03/31/18 20:01 Temperature 98.1 F Pulse Rate 94 H 80 82 Respiratory Rate 19 14 Blood Pressure 111/71 Pulse Oximetry 93 L 03/31/18 21:00 03/31/18 22:00 03/31/18 23:00 Temperature 98.4 F Pulse Rate 79 92 H 89 Respiratory Rate 20 Blood Pressure 108/66 Pulse Oximetry 94 L 03/31/18 23:20 04/01/18 00:06 04/01/18 01:28 Temperature Pulse Rate 84 77 86 Respiratory Rate Blood Pressure Pulse Oximetry 04/01/18 02:57 04/01/18 03:49 04/01/18 04:08 Temperature 98.2 F Pulse Rate 84 89 84 Respiratory Rate 19 Blood Pressure 107/64 Pulse Oximetry 92 L 04/01/18 05:06 04/01/18 06:28 04/01/18 07:00 Temperature Pulse Rate 88 85 94 H Respiratory Rate Blood Pressure Pulse Oximetry 04/01/18 08:00 04/01/18 08:04 04/01/18 09:00 Temperature 97.7 F Pulse Rate 88 87 88 Respiratory Rate 16 Blood Pressure 104/73 Pulse Oximetry 94 L 04/01/18 10:00 04/01/18 11:00 04/01/18 11:20 Temperature 98.2 F Pulse Rate 86 87 92 H Respiratory Rate 16 Blood Pressure 104/72 Pulse Oximetry 97 04/01/18 12:00 Temperature Pulse Rate 95 H Respiratory Rate Blood Pressure Pulse Oximetry Intake & Output 03/31/18 04/01/18 04/01/18 18:59 06:59 18:59 Intake Total 800 / 800 680 / 680 100 / 100 Output Total 650 / 650 650 / 650 Balance 150 / 150 30 / 30 100 / 100 Weight 83 kg Intake: IV 200 / 200 200 / 200 100 / 100 Zosyn 4.5 GM Premix 4.5 gm In 200 / 200 200 / 200 100 / 100 100 ml @ 200 mls/hr IV.SIG Q6H STACY Rx#:[id number] Oral 600 / 600 480 / 480 Output: Urine 650 / 650 650 / 650 Other: Date of Last Bowel Movement 03/30/18 - Urinary Catheter Management Indwelling Temp Sensing Catheter Cath placed during this visit: yes, but has since been removed by the nurse Reason for continuing: Not indwelling catheter Insertion date: 03/23/18 Insertion time: 07:38 Removal date: 03/28/18 Removal time: 10:30 Assessment and Plan - Assessment (1) CAD (coronary artery disease) Code(s): I25.10 - Atherosclerotic heart disease of [place] coronary artery without angina pectoris Status: Acute (2) CAD (coronary artery disease) Code(s): I25.10 - Atherosclerotic heart disease of [place] coronary artery without angina pectoris Status: Acute (3) Acute non-ST elevation myocardial infarction (NSTEMI) Code(s): I21.4 - Non-ST elevation (NSTEMI) myocardial infarction Status: Acute (4) S/P CABG (coronary artery bypass graft) Code(s): Z95.1 - Presence of aortocoronary bypass graft Status: Acute (5) Status post carotid surgery Code(s): Z98.890 - Other specified postprocedural states Status: Acute (6) Stroke Code(s): I63.9 - Cerebral infarction, unspecified Status: Acute - Plan 1.) Pending stabilization will undergo ICD implantation for sudden cardiac prevention. EP/ICD scheduled for Tuesday tentatively. Assessment and plan discussed with patient, Dr. Low.
[2018-04-02] MEDS: Piperacil/Tazo 4.5 GM Premix 4.5 GM/100 ML BAG IV.SIG SCH ×4 (03:57→22:19)
[2018-04-02 04:56] LABS: Calcium 9.2 mg/dL (8.5-10.1); Potassium 3.9 meq/L (3.5-5.1)
[2018-04-02] MEDS: Folic Acid 1 MG Tablet PO SCH (08:12)
[2018-04-02] MEDS: Multivitamin/Minerals Therapeutic Tablet PO SCH (08:12)
[2018-04-02] MEDS: Magnesium Oxide 400 MG Tablet PO SCH ×2 (08:12→20:54)
[2018-04-02] MEDS: Enoxaparin Inj 40 MG/0.4 ML Syringe SQ SCH (08:13)
[2018-04-02] MEDS: Amiodarone 200 MG Tablet PO SCH ×2 (08:13→20:54)
[2018-04-02] MEDS: Spironolactone 25 MG Tablet PO SCH ×2 (08:15→17:28)
[2018-04-02] MEDS: Polyethylene Glycol 3350 17 GM Packet PO SCH (08:17)
[2018-04-02] MEDS: Senna/Docusate Sodium 8.6/50 MG Tablet PO SCH ×2 (08:17→22:47)
--- NOTE | 2018-04-02 11:29 | P.PNCV ---
- Note CVT: Post Op Day #: 9 Subjective/Hospital Course: 52-year-old male transferred from [place] emergency department, who presented with chest pain after he was trying to unload a truck and had some acute central chest pain radiating to his neck with some shortness of breath. He was worked up in the emergency department and was found to have elevated troponins for a non-STEMI. He was transferred to the [facility] . He underwent cardiac catheterization 03/22/[address] Thomas which showed an ejection fraction of 25%, left main disease of 60% proximal LAD 95%, mid distal LAD 80%, circumflex was 95, the RCA 95. Intraaortic balloon pump was placed due to class IV CHF and his low ejection fraction. We were consulted for emergent coronary artery bypass graft. PMH: carotid artery disease, recent left carotid endarterectomy 08/2017 at [facility], history of asthma, seizure disorder, hiatal hernia, history of a recent CVA. residual left arm and left weakness, ETOH abuse 03/23 pt for surgery today 1. Urgent off-pump Coronary Artery Bypass Grafting x 4 with Left Internal Mammary Artery (ROJAS) to Left Anterior Descending (LAD), reverse saphenous vein graft to obtuse marginal branch of the left circumflex artery, reverse saphenous vein graft to the ramus marginalis, reverse saphenous vein graft to the diagonal 1 branch of the LAD 2. Right leg Endoscopic Vein [place] 3. Intraoperative Vein Mapping. 03/24 pt weaned of nicolas gtt this am , on dobutamine gtt at 2.5mcq very difficult to wean and extubate/ required fentanly and precedex pt was very agitated / uncooperative/ later calmed down and met extubation parameters extubated to nasal cannula 6 liters will need aggressive pulm toileting given dose of lasix this am , eval for BB this evening, since pt just weaned off Nicolas gtt add prn ativan for anxiety , add nabil arias , keep in CVICU for now IABP removed after surgery 03/25 Events from yesterday noted. Greatly appreciate stone setter input and assistance. Patient presently intubated and mechanically ventilated. Awakens and responds appropriately to verbal commands. No apparent neurologic deficit. 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 May need EP study prior to discharge. Will need LifeVest given his underlying cardiomyopathy. Had a lengthy discussion with his daughter, Leia, and her boyfriend regarding his clinical findings and all questions were answered. 03/26 Doing better this morning. Diuresing with current therapy. Awake and responds appropriately verbal commands. Weaning ventilator as tolerated. Chest tubes removed today. Hemodynamic support as indicated by critical care team. Greatly appreciate their input. 03/27 remains on vent CPAP mode/ 40% fio2 will follow commands , writing on paper on milrinone, amiodarone gtt, Nicolas gtt , lasix q8hr CO 5.4/ CI 2.6/ SVV 6 , CVP 11 03/28 sitting up in bed, weaned off Nicolas gtt start weaning milrinone slowly NG tube removed , start clear liguids continue diuresis , will need BP control pulm toileting, nebs ezpap OOB to chair with PT consult Dr Low ? EP study / Life Vest 03/29 milrinone weaned off , on cardize, spoke with Dr Low will do EP study on Tuesday , optimize Heart failure discussed starting BB / will leave to Dr Low transfer to stepdown 03/30 doing slightly better, BNP 289/ continue lasix bid EP study for Tuesday on coreg, amiodarone / discussed combination of BB and cocaine use with pt and daughter check CXR in am , transfer to stepdown 03/31 lasix dose reduced, amiodarone to 200mg bid dc GI motility meds add zosyn for now with left lower lobe consolidation for EP study tuesday04/01/18 No complaints except he is upset about being on fall precautions. 04/02/18 No complaints today. EP study tomorrow Objective: Vital Signs - 24 hr 04/01/18 12:00 04/01/18 13:00 04/01/18 14:00 Temperature Pulse Rate 95 H 86 86 Respiratory Rate Blood Pressure Pulse Oximetry 04/01/18 15:00 04/01/18 15:26 04/01/18 16:00 Temperature 97.8 F Pulse Rate 84 94 H 86 Respiratory Rate 16 Blood Pressure 132/77 Pulse Oximetry 96 04/01/18 17:03 04/01/18 18:00 04/01/18 19:00 Temperature Pulse Rate 83 88 92 H Respiratory Rate Blood Pressure Pulse Oximetry 04/01/18 19:58 04/01/18 20:00 04/01/18 21:00 Temperature 98.7 F Pulse Rate 92 H 90 81 Respiratory Rate 20 Blood Pressure 119/76 Pulse Oximetry 94 L 04/01/18 22:00 04/01/18 23:00 04/02/18 00:00 Temperature 98.2 F Pulse Rate 82 82 80 Respiratory Rate 20 Blood Pressure 94/53 L Pulse Oximetry 94 L 95 04/02/18 01:00 04/02/18 02:00 04/02/18 03:00 Temperature 98.1 F Pulse Rate 87 81 91 H Respiratory Rate 20 Blood Pressure 124/77 Pulse Oximetry 92 L 04/02/18 04:00 04/02/18 05:00 04/02/18 06:00 Temperature Pulse Rate 89 72 72 Respiratory Rate Blood Pressure Pulse Oximetry 04/02/18 07:00 04/02/18 07:44 04/02/18 08:00 Temperature 97.6 F Pulse Rate 81 86 88 Respiratory Rate 16 Blood Pressure 129/76 Pulse Oximetry 96 04/02/18 09:00 04/02/18 10:00 Temperature Pulse Rate 88 92 H Respiratory Rate Blood Pressure Pulse Oximetry Labs: Laboratory Results - last 12 hr 04/02/18 03:30 Sodium 134 L Potassium 3.9 Chloride 94 L Carbon Dioxide 29.0 Anion Gap 11 BUN 18 Creatinine 1.29 Estimated GFR 58 L Random Glucose 120 H Calcium 9.2 Result Diagrams: 03/28/18 10:30 04/02/18 03:30 Imaging: Chest CTA 03/21/18 15:17 CONCLUSION: 1. No evidence of pulmonary embolism. 2. 2 noncalcified pulmonary nodules. A six-month follow-up noncontrast chest CT is recommended according to the guidelines. 3. Coronary artery calcifications. Carotid Doppler Study 03/22/18 14:30 CONCLUSION: 1. Significant plaque in the right carotid system with apparent occlusion of the mid and distal internal carotid artery. 2. Nonvisualization of the right vertebral artery consistent with occlusion. 3. Further evaluation with MR angiography or CT angiography would be recommended. Lower Extremity Ultrasound 03/22/18 14:30 CONCLUSION: Venous Doppler Study 03/22/18 14:30 CONCLUSION: 1. Negative examination with no evidence of deep venous thrombosis. Chest X-Ray 03/31/18 06:00 CONCLUSION: Persistent left lower lobe consolidation and improving right lower lung consolidation. Cardiovascular: RRR Telemetry: NSR Pulmonary: CTA GI/: NABS Incision: dry and intact - Plan (2) Asthma Plan: on nebs, (3) Seizure Plan: pt not on meds at home (5) S/P CABG (coronary artery bypass graft) Plan: ASA, statin , plavix aggressive pulm toileting CV: -continue amiodarone [address] Low following instructed for no driving for 4 weeks will need pt assistance HHC at discharge (6) History of CVA (cerebrovascular accident) Plan: CVA 2 Right internal carotid artery occlusion chronic on ASA plavix (9) Postoperative cardiac arrest Plan: on amiodarone For EP study on Tuesday (10) Cocaine abuse Plan: counseled regarding cessation EP study tomorrow Discharge pending outcome of this test. Encourage ambulation Stim BM
--- NOTE | 2018-04-02 11:43 | P.PNCA ---
Subjective Interval history: alert in nad Physical Exam Vital signs: Vital Signs 04/01/18 12:00 04/01/18 13:00 04/01/18 14:00 Temperature Pulse Rate 95 H 86 86 Respiratory Rate Blood Pressure Pulse Oximetry 04/01/18 15:00 04/01/18 15:26 04/01/18 16:00 Temperature 97.8 F Pulse Rate 84 94 H 86 Respiratory Rate 16 Blood Pressure 132/77 Pulse Oximetry 96 04/01/18 17:03 04/01/18 18:00 04/01/18 19:00 Temperature Pulse Rate 83 88 92 H Respiratory Rate Blood Pressure Pulse Oximetry 04/01/18 19:58 04/01/18 20:00 04/01/18 21:00 Temperature 98.7 F Pulse Rate 92 H 90 81 Respiratory Rate 20 Blood Pressure 119/76 Pulse Oximetry 94 L 04/01/18 22:00 04/01/18 23:00 04/02/18 00:00 Temperature 98.2 F Pulse Rate 82 82 80 Respiratory Rate 20 Blood Pressure 94/53 L Pulse Oximetry 94 L 95 04/02/18 01:00 04/02/18 02:00 04/02/18 03:00 Temperature 98.1 F Pulse Rate 87 81 91 H Respiratory Rate 20 Blood Pressure 124/77 Pulse Oximetry 92 L 04/02/18 04:00 04/02/18 05:00 04/02/18 06:00 Temperature Pulse Rate 89 72 72 Respiratory Rate Blood Pressure Pulse Oximetry 04/02/18 07:00 04/02/18 07:44 04/02/18 08:00 Temperature 97.6 F Pulse Rate 81 86 88 Respiratory Rate 16 Blood Pressure 129/76 Pulse Oximetry 96 04/02/18 09:00 04/02/18 10:00 04/02/18 11:32 Temperature 98.7 F Pulse Rate 88 92 H 84 Respiratory Rate 16 Blood Pressure 134/69 Pulse Oximetry 95 Intake & Output 04/01/18 04/02/18 04/02/18 18:59 06:59 18:59 Intake Total 920 / 920 620 / 620 Output Total 825 / 825 Balance 920 / 920 -205 / -205 Weight 83.7 kg Intake: IV 200 / 200 200 / 200 Zosyn 4.5 GM Premix 4.5 gm In 200 / 200 200 / 200 100 ml @ 200 mls/hr IV.SIG Q6H STACY Rx#:[id number] Oral 720 / 720 420 / 420 Output: Urine 825 / 825 Other: # Voids 3 Date of Last Bowel Movement 04/01/18 04/02/18 # Bowel Movements 1 - Urinary Catheter Management Indwelling Temp Sensing Catheter Cath placed during this visit: yes, but has since been removed by the nurse Reason for continuing: Not indwelling catheter Insertion date: 03/23/18 Insertion time: 07:38 Removal date: 03/28/18 Removal time: 10:30 Assessment and Plan - Assessment (1) CAD (coronary artery disease) Code(s): I25.10 - Atherosclerotic heart disease of [place] coronary artery without angina pectoris Status: Acute (2) CAD (coronary artery disease) Code(s): I25.10 - Atherosclerotic heart disease of [place] coronary artery without angina pectoris Status: Acute (3) Acute non-ST elevation myocardial infarction (NSTEMI) Code(s): I21.4 - Non-ST elevation (NSTEMI) myocardial infarction Status: Acute (4) S/P CABG (coronary artery bypass graft) Code(s): Z95.1 - Presence of aortocoronary bypass graft Status: Acute (5) Status post carotid surgery Code(s): Z98.890 - Other specified postprocedural states Status: Acute (6) Stroke Code(s): I63.9 - Cerebral infarction, unspecified Status: Acute - Plan 1.) Pending stabilization will undergo ICD implantation for sudden cardiac prevention. EP/ICD scheduled for Tuesday tentatively. Assessment and plan discussed with patient, Dr. Low.
[2018-04-03] MEDS: Piperacil/Tazo 4.5 GM Premix 4.5 GM/100 ML BAG IV.SIG SCH ×4 (04:35→21:01)
[2018-04-03] MEDS: Enoxaparin Inj 40 MG/0.4 ML Syringe SQ SCH (08:13)
[2018-04-03] MEDS: Magnesium Oxide 400 MG Tablet PO SCH ×2 (08:14→20:56)
[2018-04-03] MEDS: Multivitamin/Minerals Therapeutic Tablet PO SCH (08:14)
[2018-04-03] MEDS: Folic Acid 1 MG Tablet PO SCH (08:14)
[2018-04-03] MEDS: Amiodarone 200 MG Tablet PO SCH ×2 (08:15→20:56)
[2018-04-03] MEDS: Senna/Docusate Sodium 8.6/50 MG Tablet PO SCH ×2 (08:15→21:05)
[2018-04-03] MEDS: Polyethylene Glycol 3350 17 GM Packet PO SCH (08:15)
[2018-04-03] MEDS: Spironolactone 25 MG Tablet PO SCH (08:19)
--- NOTE | 2018-04-03 11:18 | P.PNCV ---
- Note CVT: Post Op Day #: 11 Subjective/Hospital Course: 52-year-old male transferred from [place] emergency department, who presented with chest pain after he was trying to unload a truck and had some acute central chest pain radiating to his neck with some shortness of breath. He was worked up in the emergency department and was found to have elevated troponins for a non-STEMI. He was transferred to the [facility] . He underwent cardiac catheterization 03/22/[address] Thomas which showed an ejection fraction of 25%, left main disease of 60% proximal LAD 95%, mid distal LAD 80%, circumflex was 95, the RCA 95. Intraaortic balloon pump was placed due to class IV CHF and his low ejection fraction. We were consulted for emergent coronary artery bypass graft. PMH: carotid artery disease, recent left carotid endarterectomy 08/2017 at [facility], history of asthma, seizure disorder, hiatal hernia, history of a recent CVA. residual left arm and left weakness, ETOH abuse 03/23 pt for surgery today 1. Urgent off-pump Coronary Artery Bypass Grafting x 4 with Left Internal Mammary Artery (ROJAS) to Left Anterior Descending (LAD), reverse saphenous vein graft to obtuse marginal branch of the left circumflex artery, reverse saphenous vein graft to the ramus marginalis, reverse saphenous vein graft to the diagonal 1 branch of the LAD 2. Right leg Endoscopic Vein [place] 3. Intraoperative Vein Mapping. 03/24 pt weaned of nicolas gtt this am , on dobutamine gtt at 2.5mcq very difficult to wean and extubate/ required fentanly and precedex pt was very agitated / uncooperative/ later calmed down and met extubation parameters extubated to nasal cannula 6 liters will need aggressive pulm toileting given dose of lasix this am , eval for BB this evening, since pt just weaned off Nicolas gtt add prn ativan for anxiety , add nabil arias , keep in CVICU for now IABP removed after surgery 03/25 Events from yesterday noted. Greatly appreciate director of institutional giving input and assistance. Patient presently intubated and mechanically ventilated. Awakens and responds appropriately to verbal commands. No apparent neurologic deficit. 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 May need EP study prior to discharge. Will need LifeVest given his underlying cardiomyopathy. Had a lengthy discussion with his daughter, Leia, and her boyfriend regarding his clinical findings and all questions were answered. 03/26 Doing better this morning. Diuresing with current therapy. Awake and responds appropriately verbal commands. Weaning ventilator as tolerated. Chest tubes removed today. Hemodynamic support as indicated by critical care team. Greatly appreciate their input. 03/27 remains on vent CPAP mode/ 40% fio2 will follow commands , writing on paper on milrinone, amiodarone gtt, Nicolas gtt , lasix q8hr CO 5.4/ CI 2.6/ SVV 6 , CVP 11 03/28 sitting up in bed, weaned off Nicolas gtt start weaning milrinone slowly NG tube removed , start clear liguids continue diuresis , will need BP control pulm toileting, nebs ezpap OOB to chair with PT consult Dr Low ? EP study / Life Vest 03/29 milrinone weaned off , on cardize, spoke with Dr Low will do EP study on Tuesday , optimize Heart failure discussed starting BB / will leave to Dr Low transfer to stepdown 03/30 doing slightly better, BNP 289/ continue lasix bid EP study for Tuesday on coreg, amiodarone / discussed combination of BB and cocaine use with pt and daughter check CXR in am , transfer to stepdown 03/31 lasix dose reduced, amiodarone to 200mg bid dc GI motility meds add zosyn for now with left lower lobe consolidation for EP study tuesday04/01/18 No complaints except he is upset about being on fall precautions. 04/02/18 No complaints today. EP study tomorrow 04/03/18 No complaints Awaiting disposition from Dr. Low Objective: Vital Signs - 24 hr 04/02/18 11:32 04/02/18 12:00 04/02/18 12:21 Temperature 98.7 F Pulse Rate 84 88 Respiratory Rate 16 Blood Pressure 134/69 Pulse Oximetry 95 95 04/02/18 13:00 04/02/18 14:00 04/02/18 15:00 Temperature Pulse Rate 88 96 H 87 Respiratory Rate Blood Pressure Pulse Oximetry 04/02/18 15:27 04/02/18 16:19 04/02/18 19:00 Temperature 98.7 F Pulse Rate 92 H 87 93 H Respiratory Rate 16 Blood Pressure 126/78 Pulse Oximetry 92 L 93 L 04/02/18 19:23 04/02/18 20:00 04/02/18 21:00 Temperature 97.7 F Pulse Rate 93 H 101 H 92 H Respiratory Rate 20 Blood Pressure 105/70 Pulse Oximetry 93 L 04/02/18 22:00 04/02/18 23:00 04/03/18 00:00 Temperature 98.9 F Pulse Rate 85 89 91 H Respiratory Rate 18 Blood Pressure 112/61 Pulse Oximetry 94 L 04/03/18 01:00 04/03/18 02:00 04/03/18 03:00 Temperature Pulse Rate 90 86 82 Respiratory Rate Blood Pressure Pulse Oximetry 04/03/18 04:00 04/03/18 04:35 04/03/18 05:00 Temperature 99.1 F Pulse Rate 80 85 85 Respiratory Rate 18 Blood Pressure 114/60 Pulse Oximetry 93 L 04/03/18 06:00 04/03/18 07:00 04/03/18 08:00 Temperature 98.5 F Pulse Rate 84 80 91 H Respiratory Rate 16 Blood Pressure 103/59 L Pulse Oximetry 93 L 04/03/18 09:00 04/03/18 10:00 04/03/18 11:00 Temperature 98.6 F Pulse Rate 88 80 83 Respiratory Rate 18 Blood Pressure 112/70 Pulse Oximetry 94 L Result Diagrams: 03/28/18 10:30 04/02/18 03:30 Imaging: Chest CTA 03/21/18 15:17 CONCLUSION: 1. No evidence of pulmonary embolism. 2. 2 noncalcified pulmonary nodules. A six-month follow-up noncontrast chest CT is recommended according to the guidelines. 3. Coronary artery calcifications. Carotid Doppler Study 03/22/18 14:30 CONCLUSION: 1. Significant plaque in the right carotid system with apparent occlusion of the mid and distal internal carotid artery. 2. Nonvisualization of the right vertebral artery consistent with occlusion. 3. Further evaluation with MR angiography or CT angiography would be recommended. Lower Extremity Ultrasound 03/22/18 14:30 CONCLUSION: Venous Doppler Study 03/22/18 14:30 CONCLUSION: 1. Negative examination with no evidence of deep venous thrombosis. Chest X-Ray 03/31/18 06:00 CONCLUSION: Persistent left lower lobe consolidation and improving right lower lung consolidation. Cardiovascular: RRR Telemetry: NSR Pulmonary: CTA GI/: NABS Incision: dry and intact - Plan (2) Asthma Plan: on nebs, (3) Seizure Plan: pt not on meds at home (5) S/P CABG (coronary artery bypass graft) Plan: ASA, statin , plavix aggressive pulm toileting CV: -continue amiodarone [address] Low following instructed for no driving for 4 weeks will need pt assistance HHC at discharge (6) History of CVA (cerebrovascular accident) Plan: CVA 2 Right internal carotid artery occlusion chronic on ASA plavix (9) Postoperative cardiac arrest Plan: on amiodarone For EP study on Tuesday (10) Cocaine abuse Plan: counseled regarding cessation Doing well s/p CABG Awaiting disposition from Dr. Low regarding need for EP study or Lifevest. He may need an AICD if his EF remains <30%. Will stop aldactone and start ACEI ECHO today to review EF and r/o effusion Discharge planning
--- NOTE | 2018-04-03 14:43 | P.PNCA ---
Subjective Interval history: alert in nad Physical Exam Vital signs: Vital Signs 04/02/18 15:00 04/02/18 15:27 04/02/18 16:19 Temperature 98.7 F Pulse Rate 87 92 H 87 Respiratory Rate 16 Blood Pressure 126/78 Pulse Oximetry 92 L 04/02/18 19:00 04/02/18 19:23 04/02/18 20:00 Temperature 97.7 F Pulse Rate 93 H 93 H 101 H Respiratory Rate 20 Blood Pressure 105/70 Pulse Oximetry 93 L 93 L 04/02/18 21:00 04/02/18 22:00 04/02/18 23:00 Temperature 98.9 F Pulse Rate 92 H 85 89 Respiratory Rate 18 Blood Pressure 112/61 Pulse Oximetry 94 L 04/03/18 00:00 04/03/18 01:00 04/03/18 02:00 Temperature Pulse Rate 91 H 90 86 Respiratory Rate Blood Pressure Pulse Oximetry 04/03/18 03:00 04/03/18 04:00 04/03/18 04:35 Temperature 99.1 F Pulse Rate 82 80 85 Respiratory Rate 18 Blood Pressure 114/60 Pulse Oximetry 93 L 04/03/18 05:00 04/03/18 06:00 04/03/18 07:00 Temperature 98.5 F Pulse Rate 85 84 80 Respiratory Rate 16 Blood Pressure 103/59 L Pulse Oximetry 93 L 04/03/18 08:00 04/03/18 09:00 04/03/18 10:00 Temperature Pulse Rate 91 H 88 80 Respiratory Rate Blood Pressure Pulse Oximetry 04/03/18 11:00 04/03/18 12:00 04/03/18 13:00 Temperature 98.6 F Pulse Rate 83 85 90 Respiratory Rate 18 Blood Pressure 112/70 Pulse Oximetry 94 L 04/03/18 14:00 Temperature Pulse Rate 87 Respiratory Rate Blood Pressure Pulse Oximetry Intake & Output 04/02/18 04/03/18 04/03/18 18:59 06:59 18:59 Intake Total 1328 / 1328 840 / 840 100 / 100 Output Total 2049 1225 / 1225 Balance -722 / -722 -385 / -385 100 / 100 Weight 83.1 kg Intake: IV 200 / 200 200 / 200 100 / 100 Zosyn 4.5 GM Premix 4.5 gm In 200 / 200 200 / 200 100 / 100 100 ml @ 200 mls/hr IV.SIG Q6H STACY Rx#:[id number] Oral 1128 / 1128 640 / 640 Output: Urine 2049 / 2049 1225 / 1225 Other: Date of Last Bowel Movement 04/02/18 04/02/18 # Bowel Movements 1 - Urinary Catheter Management Indwelling Temp Sensing Catheter Cath placed during this visit: yes, but has since been removed by the nurse Reason for continuing: Not indwelling catheter Insertion date: 03/23/18 Insertion time: 07:38 Removal date: 03/28/18 Removal time: 10:30 Assessment and Plan - Assessment (1) CAD (coronary artery disease) Code(s): I25.10 - Atherosclerotic heart disease of [place] coronary artery without angina pectoris Status: Acute (2) CAD (coronary artery disease) Code(s): I25.10 - Atherosclerotic heart disease of [place] coronary artery without angina pectoris Status: Acute (3) Acute non-ST elevation myocardial infarction (NSTEMI) Code(s): I21.4 - Non-ST elevation (NSTEMI) myocardial infarction Status: Acute (4) S/P CABG (coronary artery bypass graft) Code(s): Z95.1 - Presence of aortocoronary bypass graft Status: Acute (5) Status post carotid surgery Code(s): Z98.890 - Other specified postprocedural states Status: Acute (6) Stroke Code(s): I63.9 - Cerebral infarction, unspecified Status: Acute - Plan 1.) Pending stabilization will undergo ICD implantation for sudden cardiac prevention. EP/ICD scheduled for Tuesday tentatively. Assessment and plan discussed with patient, Dr. Low.
--- NOTE | 2018-04-03 14:48 | ECHRPT ---
Indication: HEART FAILURE CONCLUSIONS Mildly dilated left ventricle. Wall thickness is measured at the upper limits of normal. The left ventricular systolic function is severely reduced with an estimated ejection fraction in th e range of 30-35%. There is diffuse global hypokinesis with distinct regional wall motion abnormalities. There is abnormal septal motion. Mild mitral valve regurgitation. Pulmonary arterial systolic pressure could not be estimated due to an insufficient tricuspid valve regurgitation doppler jet for measurement. The pulmonary valve is not well visualized. There is no pericardial effusion. BP: / HR: Rhythm: Technical Quality: FINDINGS LEFT VENTRICLE Mildly dilated left ventricle. Wall thickness is measured at the upper limits of normal. The left ventricular systolic function is severely reduced with an estimated ejection fraction in th e range of 30-35%. There is diffuse global hypokinesis with distinct regional wall motion abnormalities. There is abnormal septal motion. RIGHT VENTRICLE Normal right ventricular size and systolic function. LEFT ATRIUM The left atrial size is normal. RIGHT ATRIUM The right atrial size is normal. ATRIAL SEPTUM Normal atrial septal thickness without atrial level shunting by limited color doppler interrogation. AORTA The aortic root and proximal ascending aorta are normal in size on limited imaging. MITRAL VALVE Mild mitral valve regurgitation. AORTIC VALVE Trileaflet aortic valve. No aortic valve stenosis or regurgitation. TRICUSPID VALVE Structurally normal tricuspid valve. No tricuspid valve stenosis or regurgitation. Pulmonary arterial systolic pressure could not be estimated due to an insufficient tricuspid valve regurgitation doppler jet for measurement. PULMONARY VALVE The pulmonary valve is not well visualized. VESSELS The inferior vena cava is normal in size. PERICARDIUM There is no pericardial effusion. Christiano Blackburn MD, FACC (Electronically Signed) Final Date:03 April 2018 14:47
[2018-04-03] MEDS: Ramipril 2.5 MG Capsule PO SCH (15:51)
[2018-04-04] MEDS: Piperacil/Tazo 4.5 GM Premix 4.5 GM/100 ML BAG IV.SIG SCH (03:53)
--- NOTE | 2018-04-04 08:19 | P.PCNCA ---
Procedure Date: 04/04/18 Prevention: Secondary PROCEDURE: Single chamber defibrillator implantation and device testing. INDICATIONS: Bishnu Briceño is a 52-year-old M with hx of CAD, CABG, ventricular fibrillation and tachycardia requiring defibrillatory shocks, congestive heart failure, ejection fraction 20%, refers for defibrillator implantation for sudden secondary prevention. The risks, the nature and the benefit of the procedure are clearly stated to the patient. Risks include pneumothorax, cardiac perforation, stroke and even . The patient understood and agreed to proceed. PROCEDURE: After written, informed consent was obtained, the patient was brought to the EP Lab and was prepped and draped in the sterile fashion. Conscious sedation was initiated and maintained throughout the procedure by anesthesiologist. Once sedation was verified, the left infraclavicular area was anesthetized with 2% Xylocaine. Using modified Seldinger technique, the left subclavian vein was cannulated on one occasion and one guide wire was advanced. Then, using #11 blade scalpel, a 3-cm incision was made two fingerbreadths below left clavicle. This incision was then taken down to the deep fascial layer using Bovie cautery and blunt dissection. Into the inferomedial direction, a device pocket was dissected, then the wire was dissected into the pocket. A 2-0 Vicryl suture was placed around the wires to prevent bleeding. At this point, over the wire, the 9-Turkmen dilator and introducer was advanced. As dilator and wire were removed, an active fixation right ventricular pacing, sensing and defibrillatory lead was advanced. After adequate pacing and sensing thresholds were obtained, the lead was secured in the pocket with #2 Ethibond suture. At that point, the pocket was copiously irrigated with antibiotic solution. The leads were connected to the generator and placed into the pocket. I did proceed with NIPS. Initial induction consisted of T-wave shock which induced ventricular fibrillation which was adequately detected and treated by the ICD generator, delivering a 20-joule defibrillatory shock that failed to convert the patient, but was converting back into sinus rhythm by a 25 joules shock. Shocking impedance was 55 ohms, charge time 5.4 seconds. At that point NIPS was complete. I did proceed with wound closure. The deep fascial layer was approximated with 2-0 Vicryl suture in a continuous fashion. The subcutaneous layer was approximated with 2-0 Vicryl suture in a continuous fashion. The subcuticular layer was approximated with 2-0 Vicryl suture in a continuous fashion. Dermabond adhesive was applied to the wound, followed by a sterile pressure dressing. There was no complication. The patient tolerated procedure. Blood loss minimal. 1. Implanted Hardware: The implanted defibrillator generator is a Encarnate, model number [id number], serial number [id number]. The right ventricular pacing, sensing and defibrillatory lead is a Medtronic, model number 6935-62M, serial number [id number]. 2. Thresholds: The right ventricular pacing threshold in the bipolar mode was 0.7 volts at 0.4 milliseconds, lead impedance 400 ohms and R-wave at 5.0 mV. The right ventricular defibrillatory threshold less than 25 joules shocking, impedance 55 ohms, charge time 5.4 seconds. 3. Settings: The device set in VVI 40 defibrillatory portion for two zones, one zone for ventricular tachycardia between 175 and 250 beats per minute. Initial therapy consists of one burst of ATP, one ramp, 81%, 10 pulse, 10 millisecond decremental, followed by 25 and all subsequent shocks at 35 joules defibrillatory shock, the second zone for ventricular fibrillation above 250 beats per minute, first therapy at 25 and all subsequent shocks at 35 joules defibrillatory shock. CONCLUSIONS: Successful defibrillator implantation and device testing. COMMENT AND RECOMMENDATIONS: The patient will be transferred to the telemetry unit, will be observed and when stable can be discharged home.
--- NOTE | 2018-04-04 08:30 | CATHPROC ---
[facility] HIS Report Study Information Study Number Admission Scheduled Start Study Start [id number] Mar 21 2018 5:12PM 04/04/2018 Apr 04 2018 6:56AM [facility] Cardiac Catheterization Admit Source Facility Department Other [facility] - Stove Tender Physician and Clinical Staff Initial Fouzia Egan Behavioral Analyst Lisa Lam,MULTIPLE PUNCH PRESS OPERATOR Other Kelsy Vargas,RN Other Anesthesia, RECORDS MANAGEMENT MANAGER Recorder Wesley Frederick,RT(R) Scrub Omero, Mackenzie,CREDIT VERIFIER TECH2 Procedures Performed Procedure Lead Insertion Equipment Time Haulage Boss Description Size Mfg Part Number Used/Scraped 07:38 Needle Sponge Count 2 2 Used 07:38 Needle Sponge Count 2 22 Used 07:38 Needle Sponge Count 20 200 Used 08:00 VITATRON MEDTRONIC DEFIBRILLATOR, VISIA AF MRI VR VVEVVIR [id number] Used LEAD, SPRINT QUATTRO SECURE [id number] 07:56 VITATRON MEDTRONIC 62CM Used S 62CM [id number] Equipment Model, Serial, Lot Number and Expiration Data Description Model Number Serial Number Lot Number Expiration Date DEFIBRILLATOR, VISIA AF MRI VR [id number] 05-26-2019 LEAD, SPRINT QUATTRO SECURE S 6935 [id number] 01-27-2020 62CM Medication Medication Total Dose (Bolus/Oral) Medication Total Dosage/Unit 2% XYLOCAINE 50 mL Medications (Bolus/Oral) Medication Time Given Dosage/Unit Administered By Reason 2% XYLOCAINE 04/04/2018 7:51:15 AM 50 mL Fouzia Low 50 mL 2% XYLOCAINE given in lab by Fouzia Low in Left Arm via Subcutaneous. Ordered by Mono Low. left upper chest Medication (Drip) Medication Time Given Dosage/Unit Concentration/Unit Diluent (ml) Solution ANCEF 04/04/2018 7:40:41 AM 2 g 2 g ANCEF given in lab by Anesthesia, RECORDS MANAGEMENT MANAGER via Peripheral IV. Ordered by Fouzia Low. IV Solutions 04/04/2018 7:32:40 AM 0 mL (IV) 500 NaCl .9 IV Solutions given in lab by Kelsy Vargas, RN in Right Forearm via Peripheral IV. Pump/Drip Flow = 20 ml/hr using NaCl .9. Ordered by Fouzia Low. IV Solutions 04/04/2018 7:33:31 AM 0 mL (IV) 500 NaCl .9 IV Solutions given in lab by Kelsy Vargas RN in Left Hand via Peripheral IV. Pump/Drip Flow = 20 m l/hr using NaCl .9. Ordered by Fouzia Low. VANCOMYCIN DRIP 04/04/2018 7:40:39 AM 1 g 1 g VANCOMYCIN DRIP given in lab by Anesthesia, RECORDS MANAGEMENT MANAGER in Right Forearm via Peripheral IV. Ordered by Fouzia Borrero. Initial Case Assessment Cardiovascular HR NIBP Chest Pain 82 124/76 0 Edema Present Skin color Skin None Normal Warm Dry Neurological State Oriented to time-place- Alert Moves all extremities person Respiration - General SpO2 (%) 98 Final Case Assessment Cardiovascular HR Rhythm NIBP 61 sr 101/57 Neurological State Drowsy Respiration - General SpO2 (%) 95 Chronological Log Time Study Chronological Log 7:07:46 Patient arrived via Bed. 7:07:47 Patient Name, D.O.B, / Armband Verified By R.N. 7:07:47 Consent signed by the physician and the patient and verified by the Stove Tender staff. 7:07:48 Anesthesia at bedside. Assumes care of patient. 7:28:00 MD arrived. 7:29:43 Pre-op and post- op instructions given; patient acknowledges understanding of instructions. 7:30:02 Presedation assessment performed by Stove Tender RN. 7:30:06 Patient has been NPO for More than 6Hrs. 7:30:08 Skin Breakdown/pt states bruising right lower quadrant and very recent cabbage 7:31:02 Patient Warmer Placed on the Table. 7:31:03 Disposable Defibrillator Pads Placed On Patient. 7:31:04 [place] Prominences Protected Assessment: Initial Case, HR=82 BPM, UVLI=439/76 mmhg, Chest Pain=0, Edema=None, Color=Normal, S kin = Warm, Dry 7:31:09 Neurological: State=Alert, Ox3, COELLO Respiration: SpO2=98 % 7:31:37 all vital signs will be recorded during the procedure by aquatics specialist on flow sheet 7:32:18 A # 20 IV was noted in the Hand (left). Grade = 0 7:32:31 A # 20 IV was noted in the Forearm (right). Grade = 0 IV Solutions given in lab by Kelsy Vargas, PAVITHRA in Right Forearm via Peripheral IV. Pump/Drip Fl ow = 20 ml/hr using 7:32:40 NaCl .9. Ordered by Fouzia Low. IV Solutions given in lab by Kelsy Vargas RN in Left Hand via Peripheral IV. Pump/Drip Flow = 20 ml/hr using NaCl 7:33:31 .9. Ordered by Fouzia Low. 7:34:28 History and physical on the chart or being dictated. 7:34:45 Bilateral Chest Prepped Times Two. 3 min drytime 7:36:19 Bovie ground pad applied to:right hip 7:36:31 2% CHLORHEXIDINE GLUCONATE WASH AND NASAL SWIPE DONE PRIOR TO PROCEDURE. First Sponge And Instrument Count Done by Lisa Lam RCIS. 7:37:16 Hypo's: 2, Sponges: 20, Bovie/scratch: 2 Sutures: 10, Blades: 1, Instruments: 26, Syveck Patches: 0 and kelsy vargas 7:40:39 1 g VANCOMYCIN DRIP given in lab by Anesthesia, RECORDS MANAGEMENT MANAGER in Right Forearm via Peripheral IV. Ord ered by Fouzia Low. 7:40:41 2 g ANCEF given in lab by Anesthesia, RECORDS MANAGEMENT MANAGER via Peripheral IV. Ordered by Fouzia Low. 7:43:04 MD notified ready 7:45:51 MD arrived. Time Out. Correct patient, procedure, procedure equipment, site and side verified with physician present. Time 7:50:27 concurred by MD, individual staff and RECORDS MANAGEMENT MANAGER. Time Out #2 - Consents verified, patient in correct position, all results are labled and display ed, safety precautions 7:50:33 taken, antibiotics administered. Time out concurred by MD, individual staff and RECORDS MANAGEMENT MANAGER in procedur e 7:50:47 Case Start 50 mL 2% XYLOCAINE given in lab by Fouzia Low in Left Arm via Subcutaneous. Ordered by Fouzia Low. left 7:51:15 upper chest 7:53:14 Vascular access was obtained in the Subclav. Vein (Lft. 7:53:19 Wire inserted 7:53:21 Surgical Incision Made. left upper chest 7:53:32 A pocket was created at the L Upper Chest. 7:55:19 A sheath was advanced into the Fem Vein (right) using the Malinda technique. 9fr provided by [employer] 7:55:43 A LEAD, SPRINT QUATTRO SECURE S 62CM 62CM was inserted and positioned in the RV. 7:57:04 Lead placement verified under fluoroscopy 7:57:12 The RV lead impedance and threshold being tested. 7:57:26 The RV lead was sutured to the fascia. 7:59:18 Pocket flushed with antibiotic solution 7:59:23 A DEFIBRILLATOR, VISIA AF MRI VR VVEVVIR was connected and placed in the pocket. 8:00:57 Implant Procedure was performed. 8:01:10 A ICD Implant . (Single) Second Sponge And Instrument Count Done by Lisa Lam RCIS. 8:02:12 Hypo's: 2, Sponges: 20, Bovie/scratch: 2 Sutures: ~SUTURE~, Blades: 1, Instruments: 26, Syveck Patches: 0 and Mackenzie F. 8:05:44 A 2 Joul DFT was performed. 8:05:57 The DFT was Success at 25 Joules, 55 Ohms lead impedance and 5.4 ms charge time. failed at 20 joules 8:07:13 Case End (Physician broke scrub) The Final Sponge And Instrument Count Done by Lisa Lam RCIS. 8:08:27 Hypo's: 2, Sponges: 20, Bovie/scratch: 2 Sutures: 10, Blades: 1, Instruments: 26, Syveck Patches: 0 and mackenzie f. 8:08:54 PACU called. Spoke to Anisha 8:09:01 Steri-strips and a sterile dressing applied to site. 8:09:26 No case complications noted. Assessment: Final Case, HR=61 BPM, Rhythm=sr, FEFS=025/57 mmhg 8:10:29 Neurological: State=Drowsy Respiration: SpO2=95 % 8:12:39 A sling was placed on the affected arm. 8:24:57 aquatics specialist just removed lma 8:29:41 Patient moved to stretcher End Study - Contrast Media Used In Study Contrast Total Opened (mL) Total Used (mL) Total Wasted (mL) Unspecified 0 0 0 End Study - Radiation Exposure Fluoro Time (minutes) 1.1 End Study - Patient Disposition Complications Transferred To Interventional Outcome No Critical Care Bed No attempt made
[2018-04-04] MEDS ORDERED: fentaNYL Citrate Inj 100 MCG/2 ML Ampul ONE (08:59)
--- NOTE | 2018-04-04 09:43 | XR ---
EXAM DATE: 04/04/2018 9:41 AM EDT AGE/SEX: 52 years / Male INDICATIONS: Post ICD. CLINICAL DATA: This is the patient's initial encounter. Patient reports that signs and symptoms have been present for 1 day and indicates a pain score of 7/10. MEDICAL/SURGICAL HISTORY: Hypertension. Stroke. CABG. COMPARISON: [facility] [place], CHEST 1V SINGLE AP, 03/31/2018. . FINDINGS: Pacer lead overlies right ventricle. Previous sternotomy. Cardiomegaly. Basilar airspace disease, lef t greater than right with small effusions is similar to March 31. No pneumothorax. CONCLUSION: Persistent basilar airspace disease, left greater than right with small effusions, similar to March 31. Electronically signed by: Umang Gomez MD 04/04/2018 9:42 AM EDT
[2018-04-04] MEDS: Ramipril 2.5 MG Capsule PO SCH (10:05)
[2018-04-04] MEDS: Folic Acid 1 MG Tablet PO SCH (10:05)
[2018-04-04] MEDS: Multivitamin/Minerals Therapeutic Tablet PO SCH (10:05)
[2018-04-04] MEDS: Amiodarone 200 MG Tablet PO SCH ×2 (10:06→20:21)
[2018-04-04] MEDS: Magnesium Oxide 400 MG Tablet PO SCH ×2 (10:07→20:21)
[2018-04-04] MEDS: Enoxaparin Inj 40 MG/0.4 ML Syringe SQ SCH ×2 (10:07→10:12)
[2018-04-04] MEDS: Polyethylene Glycol 3350 17 GM Packet PO SCH (10:07)
[2018-04-04] MEDS: Senna/Docusate Sodium 8.6/50 MG Tablet PO SCH ×2 (10:08→20:21)
--- NOTE | 2018-04-04 10:24 | P.PNCV ---
- Note Subjective/Hospital Course: 52-year-old male transferred from [facility] emergency department, who presented with chest pain after he was trying to unload a truck and had some acute central chest pain radiating to his neck with some shortness of breath. He was worked up in the emergency department and was found to have elevated troponins for a non-STEMI. He was transferred to the [facility] . He underwent cardiac catheterization 03/22/[address] Thomas which showed an ejection fraction of 25%, left main disease of 60% proximal LAD 95%, mid distal LAD 80%, circumflex was 95, the RCA 95. Intraaortic balloon pump was placed due to class IV CHF and his low ejection fraction. We were consulted for emergent coronary artery bypass graft. PMH: carotid artery disease, recent left carotid endarterectomy 08/2017 at [facility], history of asthma, seizure disorder, hiatal hernia, history of a recent CVA. residual left arm and left weakness, ETOH abuse 03/23 pt for surgery today 1. Urgent off-pump Coronary Artery Bypass Grafting x 4 with Left Internal Mammary Artery (ROJAS) to Left Anterior Descending (LAD), reverse saphenous vein graft to obtuse marginal branch of the left circumflex artery, reverse saphenous vein graft to the ramus marginalis, reverse saphenous vein graft to the diagonal 1 branch of the LAD 2. Right leg Endoscopic Vein [place] 3. Intraoperative Vein Mapping. 03/24 pt weaned of nicolas gtt this am , on dobutamine gtt at 2.5mcq very difficult to wean and extubate/ required fentanly and precedex pt was very agitated / uncooperative/ later calmed down and met extubation parameters extubated to nasal cannula 6 liters will need aggressive pulm toileting given dose of lasix this am , eval for BB this evening, since pt just weaned off Nicolas gtt add prn ativan for anxiety , add nabil arias , keep in CVICU for now IABP removed after surgery 03/25 Events from yesterday noted. Greatly appreciate basting cleaner input and assistance. Patient presently intubated and mechanically ventilated. Awakens and responds appropriately to verbal commands. No apparent neurologic deficit. 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 May need EP study prior to discharge. Will need LifeVest given his underlying cardiomyopathy. Had a lengthy discussion with his daughter, Leia, and her boyfriend regarding his clinical findings and all questions were answered. 03/26 Doing better this morning. Diuresing with current therapy. Awake and responds appropriately verbal commands. Weaning ventilator as tolerated. Chest tubes removed today. Hemodynamic support as indicated by critical care team. Greatly appreciate their input. 03/27 remains on vent CPAP mode/ 40% fio2 will follow commands , writing on paper on milrinone, amiodarone gtt, Nicolas gtt , lasix q8hr CO 5.4/ CI 2.6/ SVV 6 , CVP 11 03/28 sitting up in bed, weaned off Nicolas gtt start weaning milrinone slowly NG tube removed , start clear liguids continue diuresis , will need BP control pulm toileting, nebs ezpap OOB to chair with PT consult Dr Low ? EP study / Life Vest 03/29 milrinone weaned off , on cardize, spoke with Dr Low will do EP study on Tuesday , optimize Heart failure discussed starting BB / will leave to Dr Low [facility] 03/30 doing slightly better, BNP 289/ continue lasix bid EP study for Tuesday on coreg, amiodarone / discussed combination of BB and cocaine use with pt and daughter check CXR in am , transfer to stepdown 03/31 lasix dose reduced, amiodarone to 200mg bid dc GI motility meds add zosyn for now with left lower lobe consolidation for EP study tuesday04/01/18 No complaints except he is upset about being on fall precautions. 04/02/18 No complaints today. EP study tomorrow 04/03/18 No complaints Awaiting disposition from Dr. Low 04/04 s/p medtronic ICD device / VVI at 40 placed today dressing in place left upper chest wall will discuss dc meds with Dr Low plan is for dc home in am Objective: Vital Signs - 24 hr 04/03/18 11:00 04/03/18 12:00 04/03/18 13:00 Temperature 98.6 F Pulse Rate 83 85 90 Respiratory Rate 18 Blood Pressure 112/70 Pulse Oximetry 94 L 04/03/18 14:00 04/03/18 15:00 04/03/18 16:00 Temperature 97.9 F Pulse Rate 87 93 H 88 Respiratory Rate 17 Blood Pressure 104/77 Pulse Oximetry 96 04/03/18 17:00 04/03/18 18:00 04/03/18 19:00 Temperature 98.5 F Pulse Rate 97 H 90 85 Respiratory Rate 16 Blood Pressure 107/65 Pulse Oximetry 95 04/03/18 22:42 04/03/18 23:00 04/04/18 00:00 Temperature 98.7 F Pulse Rate 80 88 104 H Respiratory Rate 16 Blood Pressure 121/67 Pulse Oximetry 95 04/04/18 01:00 04/04/18 03:00 04/04/18 05:34 Temperature 99.1 F Pulse Rate 84 82 92 H Respiratory Rate 16 Blood Pressure 126/81 Pulse Oximetry 93 L 04/04/18 06:00 04/04/18 07:00 04/04/18 08:44 Temperature 97.6 F Pulse Rate 83 81 68 Respiratory Rate 16 Blood Pressure 91/52 L Pulse Oximetry 96 04/04/18 09:00 04/04/18 09:15 04/04/18 09:45 Temperature 97.6 F Pulse Rate 74 83 84 Respiratory Rate 16 23 17 Blood Pressure 95/57 L 116/75 114/74 Pulse Oximetry 95 95 92 L 04/04/18 10:00 Temperature Pulse Rate 85 Respiratory Rate Blood Pressure Pulse Oximetry GENERAL: A&O x 3 SKIN: Warm and dry. sternal incision intact and well approximated / dressing in palce left yupper HEAD: Normocephalic. EYES: No scleral icterus. No injection or drainage. NECK: Supple, trachea midline. No JVD or lymphadenopathy. CARDIOVASCULAR: Regular rate and rhythm without murmurs, gallops, or rubs. RESPIRATORY: Breath sounds equal bilaterally. No accessory muscle use. GASTROINTESTINAL: Abdomen soft, non-tender, nondistended. MUSCULOSKELETAL: No cyanosis, or edema. BACK: Nontender without obvious deformity. No CVA tenderness. Result Diagrams: 03/28/18 10:30 04/02/18 03:30 Telemetry: NSR - Plan (2) Asthma Plan: on nebs, (3) Seizure Plan: pt not on meds at home (5) S/P CABG (coronary artery bypass graft) Plan: ASA, statin , plavix aggressive pulm toileting CV: -continue amiodarone [address] Low following / s/p medtronic ICD placement today for dc in am instructed for no driving for 4 weeks will need pt assistance HHC at discharge (6) History of CVA (cerebrovascular accident) Plan: CVA 2 Right internal carotid artery occlusion chronic on ASA plavix (9) Postoperative cardiac arrest Plan: on amiodarone s/p EP study today (10) Cocaine abuse Plan: counseled regarding cessation
--- NOTE | 2018-04-04 11:00 | P.DS ---
Date of admission: 03/21/18 17:12 Primary care physician: No Primary Care Physician Attending physician on discharge: Alicia Leary Anticipated date of discharge: 04/05/18 Brief History from admission: 52-year-old male transferred from [place] emergency department, who presented with chest pain after he was trying to unload a truck and had some acute central chest pain radiating to his neck with some shortness of breath. He was worked up in the emergency department and was found to have elevated troponins for a non-STEMI. He was transferred to the [facility] . He underwent cardiac catheterization 03/22/[address] Thomas which showed an ejection fraction of 25%, left main disease of 60% proximal LAD 95%, mid distal LAD 80%, circumflex was 95, the RCA 95. Intraaortic balloon pump was placed due to class IV CHF and his low ejection fraction. We were consulted for emergent coronary artery bypass graft. PMH: carotid artery disease, recent left carotid endarterectomy 08/2017 at [facility], history of asthma, seizure disorder, hiatal hernia, history of a recent CVA. residual left arm and left weakness, ETOH abuse DS: Diagnosis - Discharge Diagnosis (1) Acute non-ST elevation myocardial infarction (NSTEMI) Status: Acute (2) Asthma Status: Chronic (3) Seizure Status: Chronic (4) Status post carotid surgery Status: Chronic (5) S/P CABG (coronary artery bypass graft) Status: Acute (6) History of CVA (cerebrovascular accident) Status: Chronic (7) Tobacco abuse Status: Chronic (8) Tobacco abuse counseling Status: Acute (9) Postoperative cardiac arrest Status: Acute (10) Cocaine abuse Status: Chronic DS: Medications - Discharge Medications Prescriptions: amiodarone 200 mg PO Q12HR #28 tab aspirin 81 mg PO DAILY #30 tab atorvastatin 80 mg PO HS #30 tab carvedilol [Coreg] 3.125 mg PO BID #60 tab clopidogrel [Plavix] 75 mg PO DAILY #30 tab furosemide [Lasix] 20 mg PO DAILY PRN #30 tab PRN Reason: heart failure [id number]-calcium-mins [Thera M Plus (ferrous fumarat)] 1 tab PO DAILY # 30 tab oxycodone-acetaminophen 1 tab PO Q4H PRN #40 tab PRN Reason: pain 1-5 potassium chloride 10 meq PO DAILY #30 cap ramipril 2.5 mg PO DAILY #30 cap DS: Summary Hospital Course: 03/23 pt for surgery today 1. Urgent off-pump Coronary Artery Bypass Grafting x 4 with Left Internal Mammary Artery (ROJAS) to Left Anterior Descending (LAD), reverse saphenous vein graft to obtuse marginal branch of the left circumflex artery, reverse saphenous vein graft to the ramus marginalis, reverse saphenous vein graft to the diagonal 1 branch of the LAD 2. Right leg Endoscopic Vein [place] 3. Intraoperative Vein Mapping. 03/24 pt weaned of nicolas gtt this am , on dobutamine gtt at 2.5mcq very difficult to wean and extubate/ required fentanly and precedex pt was very agitated / uncooperative/ later calmed down and met extubation parameters extubated to nasal cannula 6 liters will need aggressive pulm toileting given dose of lasix this am , eval for BB this evening, since pt just weaned off Nicolas gtt add prn ativan for anxiety , add rally juana , keep in CVICU for now IABP removed after surgery 03/25 Events from yesterday noted. Greatly appreciate blast furnace blower input and assistance. Patient presently intubated and mechanically ventilated. Awakens and responds appropriately to verbal commands. No apparent neurologic deficit. 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 May need EP study prior to discharge. Will need LifeVest given his underlying cardiomyopathy. Had a lengthy discussion with his daughter, Leia, and her boyfriend regarding his clinical findings and all questions were answered. 03/26 Doing better this morning. Diuresing with current therapy. Awake and responds appropriately verbal commands. Weaning ventilator as tolerated. Chest tubes removed today. Hemodynamic support as indicated by critical care team. Greatly appreciate their input. 03/27 remains on vent CPAP mode/ 40% fio2 will follow commands , writing on paper on milrinone, amiodarone gtt, Nicolas gtt , lasix q8hr CO 5.4/ CI 2.6/ SVV 6 , CVP 11 03/28 sitting up in bed, weaned off Nicolas gtt start weaning milrinone slowly NG tube removed , start clear liguids continue diuresis , will need BP control pulm toileting, nebs ezpap OOB to chair with PT consult Dr Low ? EP study / Life Vest 03/29 milrinone weaned off , on cardizem, spoke with Dr Low will do EP study on Tuesday , optimize Heart failure discussed starting BB / will leave to Dr Low transfer to stepdown 03/30 doing slightly better, BNP 289/ continue lasix bid EP study for Tuesday on coreg, amiodarone / discussed combination of BB and cocaine use with pt and daughter check CXR in am , transfer to stepdown 03/31 lasix dose reduced, amiodarone to 200mg bid dc GI motility meds add zosyn for now with left lower lobe consolidation for EP study tuesday04/01/18 No complaints except he is upset about being on fall precautions. 04/02/18 No complaints today. EP study tomorrow 04/03/18 No complaints Awaiting disposition from Dr. Low 04/04 s/p Medtronic ICD placement with VVI rate 40 doing well will discuss discharge meds with Dr Low anticipate discharge in am / post CABG/ ICD instructions wean off 02 continue MAGALYS BB , ASA statin - Time Spent with Patient Total time spent providing and/or coordinating discharge services: Greater than 30 minutes - Quality: AMI Clinical Trial Participant: No - Quality: VTE Deep Vein Thrombosis/Pulmonary Embolism Present on Admission: No Exam Vital signs: Vital Signs 04/03/18 11:00 04/03/18 12:00 04/03/18 13:00 Temperature 98.6 F Pulse Rate 83 85 90 Respiratory Rate 18 Blood Pressure 112/70 Pulse Oximetry 94 L 04/03/18 14:00 04/03/18 15:00 04/03/18 16:00 Temperature 97.9 F Pulse Rate 87 93 H 88 Respiratory Rate 17 Blood Pressure 104/77 Pulse Oximetry 96 04/03/18 17:00 04/03/18 18:00 04/03/18 19:00 Temperature 98.5 F Pulse Rate 97 H 90 85 Respiratory Rate 16 Blood Pressure 107/65 Pulse Oximetry 95 04/03/18 22:42 04/03/18 23:00 04/04/18 00:00 Temperature 98.7 F Pulse Rate 80 88 104 H Respiratory Rate 16 Blood Pressure 121/67 Pulse Oximetry 95 04/04/18 01:00 04/04/18 03:00 04/04/18 05:34 Temperature 99.1 F Pulse Rate 84 82 92 H Respiratory Rate 16 Blood Pressure 126/81 Pulse Oximetry 93 L 04/04/18 06:00 04/04/18 07:00 04/04/18 08:44 Temperature 97.6 F Pulse Rate 83 81 68 Respiratory Rate 16 Blood Pressure 91/52 L Pulse Oximetry 96 04/04/18 09:00 04/04/18 09:15 04/04/18 09:45 Temperature 97.6 F Pulse Rate 74 83 84 Respiratory Rate 16 23 17 Blood Pressure 95/57 L 116/75 114/74 Pulse Oximetry 95 95 92 L 04/04/18 10:00 04/04/18 10:19 Temperature Pulse Rate 85 82 Respiratory Rate 16 Blood Pressure 119/64 Pulse Oximetry 93 L Intake & Output 04/03/18 04/04/18 04/04/18 18:59 06:59 18:59 Intake Total 1220 / 1220 760 / 760 Output Total 975 / 975 775 / 775 Balance 245 / 245 -15 / -15 Weight 83 kg Intake: IV 200 / 200 200 / 200 Zosyn 4.5 GM Premix 4.5 gm In 200 / 200 200 / 200 100 ml @ 200 mls/hr IV.SIG Q6H STACY Rx#:[id number] Oral 1020 / 1020 560 / 560 Output: Urine 975 / 975 775 / 775 Other: Date of Last Bowel Movement 04/02/18 04/03/18 - Constitutional no acute distress - Routine HEENT Exam Head: Present: normocephalic Eye: Present: EOMI, PERRL - Routine Neck Exam Present: supple, full ROM - Routine Chest/Breast/Axilla Exam Chest wall: Present: tenderness Comments: dressing to left upper chest wall from ICD placement - Routine Respiratory Exam Present: CTA bilaterally - Routine Cardiovascular Exam Present: RRR, S1, S2 - Routine Abdominal Exam Present: soft, normoactive bowel sounds - Routine Extremities Exam Present: full ROM, pulses intact, normal capillary refill - Routine Skin Exam Present: intact (dressing left chest, sternal incision intact and well approximated ), wounds - Routine Neurological Exam Present: alert, oriented X3, CN II-XII intact Results Procedures completed during hospitalization: 03/23 PREPROCEDURE DIAGNOSES 1. Severe Multi Vessel Coronary Artery Disease. 2. Acute myocardial infarction 3. Severe left ventricular dysfunction (EF 25%) 4. Chronic nicotine use 5. History of stroke 2 6. Occluded right internal carotid artery POSTPROCEDURE DIAGNOSES Same SURGICAL PROCEDURE 1. Urgent off-pump Coronary Artery Bypass Grafting x 4 with Left Internal Mammary Artery (ROJAS) to Left Anterior Descending (LAD), reverse saphenous vein graft to obtuse marginal branch of the left circumflex artery, reverse saphenous vein graft to the ramus marginalis, reverse saphenous vein graft to the diagonal 1 branch of the LAD 2. Right leg Endoscopic Vein [place] 3. Intraoperative Vein Mapping. Dr Low : OR notes 04/03 I did proceed with NIPS. Initial induction consisted of T-wave shock which induced ventricular fibrillation which was adequately detected and treated by the ICD generator, delivering a 20-joule defibrillatory shock that failed to convert the patient, but was converting back into sinus rhythm by a 25 joules shock. Shocking impedance was 55 ohms, charge time 5.4 seconds. At that point NIPS was complete. I did proceed with wound closure. The deep fascial layer was approximated with 2-0 Vicryl suture in a continuous fashion. The subcutaneous layer was approximated with 2-0 Vicryl suture in a continuous fashion. The subcuticular layer was approximated with 2-0 Vicryl suture in a continuous fashion. Dermabond adhesive was applied to the wound, followed by a sterile pressure dressing. There was no complication. The patient tolerated procedure. Blood loss minimal. 1. Implanted Hardware: The implanted defibrillator generator is a [employer], model number [id number], serial number [id number]. The right ventricular pacing, sensing and defibrillatory lead is a Medtronic, model number 6935-62M, serial number [id number]. 2. Thresholds: The right ventricular pacing threshold in the bipolar mode was 0.7 volts at 0.4 milliseconds, lead impedance 400 ohms and R-wave at 5.0 mV. The right ventricular defibrillatory threshold less than 25 joules shocking, impedance 55 ohms, charge time 5.4 seconds. 3. Settings: The device set in VVI 40 defibrillatory portion for two zones, one zone for ventricular tachycardia between 175 and 250 beats per minute. Initial therapy consists of one burst of ATP, one ramp, 81%, 10 pulse, 10 millisecond decremental, followed by 25 and all subsequent shocks at 35 joules defibrillatory shock, the second zone for ventricular fibrillation above 250 beats per minute, first therapy at 25 and all subsequent shocks at 35 joules defibrillatory shock. CONCLUSIONS: Successful defibrillator implantation and device testing. - Impressions ITS Impressions Chest CTA 03/21/18 15:17 CONCLUSION: 1. No evidence of pulmonary embolism. 2. 2 noncalcified pulmonary nodules. A six-month follow-up noncontrast chest CT is recommended according to the guidelines. 3. Coronary artery calcifications. Carotid Doppler Study 03/22/18 14:30 CONCLUSION: 1. Significant plaque in the right carotid system with apparent occlusion of the mid and distal internal carotid artery. 2. Nonvisualization of the right vertebral artery consistent with occlusion. 3. Further evaluation with MR angiography or CT angiography would be recommended. Lower Extremity Ultrasound 03/22/18 14:30 CONCLUSION: Venous Doppler Study 03/22/18 14:30 CONCLUSION: 1. Negative examination with no evidence of deep venous thrombosis. Chest X-Ray 04/04/18 00:00 CONCLUSION: Persistent basilar airspace disease, left greater than right with small effusions, similar to March 3. Discharge Plan - Discharge Disposition Patient Disposition: Disch /Home Health Service - Discharge Condition Condition: Stable - Discharge Order Discharge Orders: Discharge Order (Routine); Ordered 04/05/18 Ordered By: Susy Soto - Discharge Details Anticipated Discharge Date: 04/05/18 - Physicians Team Primary Care Provider: Primary Care Physici,No Attending Provider: Tai Santiago Other Providers: Hesham Thomas MD ; Tai Santiago MD ; Jose Sethi MD ; [facility] ; Fouzia Low MD
[2018-04-04] MEDS: Acetaminophen 325 MG Tablet PO PRN (11:08)
[2018-04-04] MEDS ORDERED: Sodium Chlor 0.9% Inj 500 ML IV.SIG ONE (12:00)
[2018-04-04] MEDS ORDERED: Phenylephrine/NS 1000 MCG/10ML Syringe IV.PUSH ONE (12:00)
--- NOTE | 2018-04-04 13:59 | P.PNCA ---
Subjective Interval history: alert in nad Physical Exam Vital signs: Vital Signs 04/03/18 14:00 04/03/18 15:00 04/03/18 16:00 Temperature 97.9 F Pulse Rate 87 93 H 88 Respiratory Rate 17 Blood Pressure 104/77 Pulse Oximetry 96 04/03/18 17:00 04/03/18 18:00 04/03/18 19:00 Temperature 98.5 F Pulse Rate 97 H 90 85 Respiratory Rate 16 Blood Pressure 107/65 Pulse Oximetry 95 04/03/18 22:42 04/03/18 23:00 04/04/18 00:00 Temperature 98.7 F Pulse Rate 80 88 104 H Respiratory Rate 16 Blood Pressure 121/67 Pulse Oximetry 95 04/04/18 01:00 04/04/18 03:00 04/04/18 05:34 Temperature 99.1 F Pulse Rate 84 82 92 H Respiratory Rate 16 Blood Pressure 126/81 Pulse Oximetry 93 L 04/04/18 06:00 04/04/18 07:00 04/04/18 08:44 Temperature 97.6 F Pulse Rate 83 81 68 Respiratory Rate 16 Blood Pressure 91/52 L Pulse Oximetry 96 04/04/18 09:00 04/04/18 09:15 04/04/18 09:45 Temperature 97.6 F Pulse Rate 74 83 84 Respiratory Rate 16 23 17 Blood Pressure 95/57 L 116/75 114/74 Pulse Oximetry 95 95 92 L 04/04/18 10:00 04/04/18 10:19 04/04/18 11:00 Temperature Pulse Rate 85 82 88 Respiratory Rate 16 Blood Pressure 119/64 Pulse Oximetry 93 L 04/04/18 11:16 04/04/18 12:00 04/04/18 12:03 Temperature 97.6 F Pulse Rate 90 96 H Respiratory Rate 16 17 Blood Pressure 116/74 Pulse Oximetry 97 04/04/18 13:00 Temperature Pulse Rate 87 Respiratory Rate Blood Pressure Pulse Oximetry Intake & Output 04/03/18 04/04/18 04/04/18 18:59 06:59 18:59 Intake Total 1220 / 1220 760 / 760 Output Total 975 / 975 775 / 775 Balance 245 / 245 -15 / -15 Weight 83 kg Intake: IV 200 / 200 200 / 200 Zosyn 4.5 GM Premix 4.5 gm In 200 / 200 200 / 200 100 ml @ 200 mls/hr IV.SIG Q6H STACY Rx#:[id number] Oral 1020 / 1020 560 / 560 Output: Urine 975 / 975 775 / 775 Other: Date of Last Bowel Movement 04/02/18 04/03/18 04/03/18 - Urinary Catheter Management Indwelling Temp Sensing Catheter Cath placed during this visit: yes, but has since been removed by the nurse Reason for continuing: Not indwelling catheter Insertion date: 03/23/18 Insertion time: 07:38 Removal date: 03/28/18 Removal time: 10:30 Assessment and Plan - Assessment (1) CAD (coronary artery disease) Code(s): I25.10 - Atherosclerotic heart disease of [place] coronary artery without angina pectoris Status: Acute (2) CAD (coronary artery disease) Code(s): I25.10 - Atherosclerotic heart disease of [place] coronary artery without angina pectoris Status: Acute (3) Acute non-ST elevation myocardial infarction (NSTEMI) Code(s): I21.4 - Non-ST elevation (NSTEMI) myocardial infarction Status: Acute (4) S/P CABG (coronary artery bypass graft) Code(s): Z95.1 - Presence of aortocoronary bypass graft Status: Acute (5) Status post carotid surgery Code(s): Z98.890 - Other specified postprocedural states Status: Chronic (6) Stroke Code(s): I63.9 - Cerebral infarction, unspecified Status: Acute - Plan 1.) s/p ICD implantation for sudden cardiac prevention. Assessment and plan discussed with patient, Dr. Low. Progress Note: Quality - AMI Clinical Trial Participant: No
[2018-04-04] MEDS: ceFAZolin Inj 2,000 MG in Sodium Chlor 0.9% Inj 80 ML IV.SIG SCH (15:47)
[2018-04-05 08:17] VITALS: BP 147/78; RESP 17; TEMP 97.9; O2SAT 98
[2018-04-05] MEDS: ceFAZolin Inj 2,000 MG in Sodium Chlor 0.9% Inj 80 ML IV.SIG SCH ×3 (08:44)
[2018-04-05] MEDS: Folic Acid 1 MG Tablet PO SCH (08:45)
[2018-04-05] MEDS: Ramipril 2.5 MG Capsule PO SCH (08:46)
[2018-04-05] MEDS: Magnesium Oxide 400 MG Tablet PO SCH (08:46)
[2018-04-05] MEDS: Amiodarone 200 MG Tablet PO SCH (08:46)
[2018-04-05] MEDS: Multivitamin/Minerals Therapeutic Tablet PO SCH (08:46)
[2018-04-05] MEDS: Polyethylene Glycol 3350 17 GM Packet PO SCH (08:47)
[2018-04-05] MEDS: Enoxaparin Inj 40 MG/0.4 ML Syringe SQ SCH (08:47)
[2018-04-05] MEDS: Senna/Docusate Sodium 8.6/50 MG Tablet PO SCH (08:47)
--- NOTE | 2018-04-05 09:31 | P.PN ---
Subjective Interval history: Feeling ok Physical Exam Vital signs: Vital Signs 04/04/18 09:45 04/04/18 10:00 04/04/18 10:19 Temperature 97.6 F Pulse Rate 84 85 82 Respiratory Rate 17 16 Blood Pressure 114/74 119/64 Pulse Oximetry 92 L 93 L 04/04/18 11:00 04/04/18 11:16 04/04/18 12:00 Temperature 97.6 F Pulse Rate 88 90 96 H Respiratory Rate 16 Blood Pressure 116/74 Pulse Oximetry 97 04/04/18 12:03 04/04/18 13:00 04/04/18 14:00 Temperature Pulse Rate 87 85 Respiratory Rate 17 Blood Pressure Pulse Oximetry 04/04/18 15:00 04/04/18 16:00 04/04/18 17:00 Temperature 98 F Pulse Rate 78 86 82 Respiratory Rate 16 Blood Pressure 103/72 Pulse Oximetry 98 04/04/18 18:00 04/04/18 19:30 04/04/18 19:47 Temperature 98.1 F Pulse Rate 88 84 Respiratory Rate 19 20 Blood Pressure 117/75 Pulse Oximetry 95 04/04/18 20:00 04/04/18 21:00 04/04/18 22:20 Temperature Pulse Rate 76 79 75 Respiratory Rate Blood Pressure Pulse Oximetry 04/04/18 23:00 04/05/18 00:18 04/05/18 01:45 Temperature 98.4 F Pulse Rate 83 81 79 Respiratory Rate 20 Blood Pressure 109/63 Pulse Oximetry 94 L 04/05/18 02:02 04/05/18 03:11 04/05/18 04:00 Temperature 98.6 F Pulse Rate 80 76 90 Respiratory Rate 21 Blood Pressure 111/68 Pulse Oximetry 96 04/05/18 05:27 04/05/18 06:28 04/05/18 07:00 Temperature Pulse Rate 87 74 74 Respiratory Rate Blood Pressure Pulse Oximetry 04/05/18 08:00 Temperature 97.9 F Pulse Rate 80 Respiratory Rate 17 Blood Pressure 147/78 H Pulse Oximetry 98 Intake & Output 04/04/18 04/05/18 04/05/18 18:59 06:59 18:59 Intake Total 1100 / 1100 815 / 815 Output Total 1150 / 1150 300 / 300 Balance -50 / -50 515 / 515 Weight 83.8 kg Intake: IV 100 / 100 100 / 100 Ancef Inj 2,000 MG In NS Inj 80 100 / 100 100 / 100 ML @ 200 mls/hr IV.SIG Q8H STACY Rx#:[id number] Oral 1000 / 1000 715 / 715 Output: Urine 1150 / 1150 300 / 300 Other: Date of Last Bowel Movement 04/03/18 04/04/18 # Incontinent Bowel Movements 1 - Constitutional no acute distress - Routine HEENT Exam Head: Present: normocephalic Eye: Present: PERRL ENT: Present: mucous membranes moist - Routine Neck Exam Present: normal carotid upstroke - Detailed Chest Wall Exam Comments: Clean surgical wound at the pacer site - Routine Respiratory Exam Present: CTA bilaterally - Routine Cardiovascular Exam Present: RRR, S1, S2 - Routine Abdominal Exam Present: soft - Routine Neurological Exam Present: alert, oriented X3 - Urinary Catheter Management Indwelling Temp Sensing Catheter Cath placed during this visit: yes, but has since been removed by the nurse Reason for continuing: Not indwelling catheter Insertion date: 03/23/18 Insertion time: 07:38 Removal date: 03/28/18 Removal time: 10:30 Results - Labs CBC & Chem 7: 03/28/18 10:30 04/02/18 03:30 - Imaging Impressions Chest X-Ray 04/04/18 00:00 CONCLUSION: Persistent basilar airspace disease, left greater than right with small effusions, similar to March 31. - Procedures 03/23 PREPROCEDURE DIAGNOSES 1. Severe Multi Vessel Coronary Artery Disease. 2. Acute myocardial infarction 3. Severe left ventricular dysfunction (EF 25%) 4. Chronic nicotine use 5. History of stroke 2 6. Occluded right internal carotid artery POSTPROCEDURE DIAGNOSES Same SURGICAL PROCEDURE 1. Urgent off-pump Coronary Artery Bypass Grafting x 4 with Left Internal Mammary Artery (ROJAS) to Left Anterior Descending (LAD), reverse saphenous vein graft to obtuse marginal branch of the left circumflex artery, reverse saphenous vein graft to the ramus marginalis, reverse saphenous vein graft to the diagonal 1 branch of the LAD 2. Right leg Endoscopic Vein [place] 3. Intraoperative Vein Mapping. Dr Low : OR notes 04/03 I did proceed with NIPS. Initial induction consisted of T-wave shock which induced ventricular fibrillation which was adequately detected and treated by the ICD generator, delivering a 20-joule defibrillatory shock that failed to convert the patient, but was converting back into sinus rhythm by a 25 joules shock. Shocking impedance was 55 ohms, charge time 5.4 seconds. At that point NIPS was complete. I did proceed with wound closure. The deep fascial layer was approximated with 2-0 Vicryl suture in a continuous fashion. The subcutaneous layer was approximated with 2-0 Vicryl suture in a continuous fashion. The subcuticular layer was approximated with 2-0 Vicryl suture in a continuous fashion. Dermabond adhesive was applied to the wound, followed by a sterile pressure dressing. There was no complication. The patient tolerated procedure. Blood loss minimal. 1. Implanted Hardware: The implanted defibrillator generator is a [employer], model number [id number], serial number [id number]. The right ventricular pacing, sensing and defibrillatory lead is a [employer], model number 6935-62M, serial number [id number]. 2. Thresholds: The right ventricular pacing threshold in the bipolar mode was 0.7 volts at 0.4 milliseconds, lead impedance 400 ohms and R-wave at 5.0 mV. The right ventricular defibrillatory threshold less than 25 joules shocking, impedance 55 ohms, charge time 5.4 seconds. 3. Settings: The device set in VVI 40 defibrillatory portion for two zones, one zone for ventricular tachycardia between 175 and 250 beats per minute. Initial therapy consists of one burst of ATP, one ramp, 81%, 10 pulse, 10 millisecond decremental, followed by 25 and all subsequent shocks at 35 joules defibrillatory shock, the second zone for ventricular fibrillation above 250 beats per minute, first therapy at 25 and all subsequent shocks at 35 joules defibrillatory shock. CONCLUSIONS: Successful defibrillator implantation and device testing. Assessment and Plan - Assessment (1) CAD (coronary artery disease) Code(s): I25.10 - Atherosclerotic heart disease of [place] coronary artery without angina pectoris Status: Acute Plan: Doing well No chest pain reported (2) Postoperative cardiac arrest Status: Acute Plan: SP ICD insertion Device well functioning Clean surgical wound Can be DH Follow up with me in 3 weeks. Progress Note: Quality - AMI Clinical Trial Participant: No
[2018-04-05 10:09] VITALS: PULSE 92
--- NOTE | 2018-04-05 10:09 | P.PNCV ---
- Note Subjective/Hospital Course: 52-year-old male transferred from [place] emergency department, who presented with chest pain after he was trying to unload a truck and had some acute central chest pain radiating to his neck with some shortness of breath. He was worked up in the emergency department and was found to have elevated troponins for a non-STEMI. He was transferred to the [facility] . He underwent cardiac catheterization 03/22/[address] Thomas which showed an ejection fraction of 25%, left main disease of 60% proximal LAD 95%, mid distal LAD 80%, circumflex was 95, the RCA 95. Intraaortic balloon pump was placed due to class IV CHF and his low ejection fraction. We were consulted for emergent coronary artery bypass graft. PMH: carotid artery disease, recent left carotid endarterectomy 08/2017 at [facility], history of asthma, seizure disorder, hiatal hernia, history of a recent CVA. residual left arm and left weakness, ETOH abuse 03/23 pt for surgery today 1. Urgent off-pump Coronary Artery Bypass Grafting x 4 with Left Internal Mammary Artery (ROJAS) to Left Anterior Descending (LAD), reverse saphenous vein graft to obtuse marginal branch of the left circumflex artery, reverse saphenous vein graft to the ramus marginalis, reverse saphenous vein graft to the diagonal 1 branch of the LAD 2. Right leg Endoscopic Vein [place] 3. Intraoperative Vein Mapping. 03/24 pt weaned of nicolas gtt this am , on dobutamine gtt at 2.5mcq very difficult to wean and extubate/ required fentanly and precedex pt was very agitated / uncooperative/ later calmed down and met extubation parameters extubated to nasal cannula 6 liters will need aggressive pulm toileting given dose of lasix this am , eval for BB this evening, since pt just weaned off Nicolas gtt add prn ativan for anxiety , add nabil arias , keep in CVICU for now IABP removed after surgery 03/25 Events from yesterday noted. Greatly appreciate director clinical pharmacology input and assistance. Patient presently intubated and mechanically ventilated. Awakens and responds appropriately to verbal commands. No apparent neurologic deficit. 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 May need EP study prior to discharge. Will need LifeVest given his underlying cardiomyopathy. Had a lengthy discussion with his daughter, Leia, and her boyfriend regarding his clinical findings and all questions were answered. 03/26 Doing better this morning. Diuresing with current therapy. Awake and responds appropriately verbal commands. Weaning ventilator as tolerated. Chest tubes removed today. Hemodynamic support as indicated by critical care team. Greatly appreciate their input. 03/27 remains on vent CPAP mode/ 40% fio2 will follow commands , writing on paper on milrinone, amiodarone gtt, Nicolas gtt , lasix q8hr CO 5.4/ CI 2.6/ SVV 6 , CVP 11 03/28 sitting up in bed, weaned off Nicolas gtt start weaning milrinone slowly NG tube removed , start clear liguids continue diuresis , will need BP control pulm toileting, nebs ezpap OOB to chair with PT consult Dr Low ? EP study / Life Vest 03/29 milrinone weaned off , on cardize, spoke with Dr Low will do EP study on Tuesday , optimize Heart failure discussed starting BB / will leave to Dr Low transfer to [facility] 03/30 doing slightly better, BNP 289/ continue lasix bid EP study for Tuesday on coreg, amiodarone / discussed combination of BB and cocaine use with pt and daughter check CXR in am , transfer to [facility] 03/31 lasix dose reduced, amiodarone to 200mg bid dc GI motility meds add zosyn for now with left lower lobe consolidation for EP study tuesday04/01/18 No complaints except he is upset about being on fall precautions. 04/02/18 No complaints today. EP study tomorrow 04/03/18 No complaints Awaiting disposition from Dr. Low 04/04 s/p medtronic ICD device / VVI at 40 placed today dressing in place left upper chest wall will discuss dc meds with Dr Low plan is for dc home in am 04/05 left ICD site intact with steri strips pt on room air , feels better , stable for dc home today Objective: Vital Signs - 24 hr 04/04/18 10:19 04/04/18 11:00 04/04/18 11:16 Temperature 97.6 F Pulse Rate 82 88 90 Respiratory Rate 16 16 Blood Pressure 119/64 116/74 Pulse Oximetry 93 L 97 04/04/18 12:00 04/04/18 12:03 04/04/18 13:00 Temperature Pulse Rate 96 H 87 Respiratory Rate 17 Blood Pressure Pulse Oximetry 04/04/18 14:00 04/04/18 15:00 04/04/18 16:00 Temperature 98 F Pulse Rate 85 78 86 Respiratory Rate 16 Blood Pressure 103/72 Pulse Oximetry 98 04/04/18 17:00 04/04/18 18:00 04/04/18 19:30 Temperature 98.1 F Pulse Rate 82 88 84 Respiratory Rate 19 Blood Pressure 117/75 Pulse Oximetry 95 04/04/18 19:47 04/04/18 20:00 04/04/18 21:00 Temperature Pulse Rate 76 79 Respiratory Rate 20 Blood Pressure Pulse Oximetry 04/04/18 22:20 04/04/18 23:00 04/05/18 00:18 Temperature 98.4 F Pulse Rate 75 83 81 Respiratory Rate 20 Blood Pressure 109/63 Pulse Oximetry 94 L 04/05/18 01:45 04/05/18 02:02 04/05/18 03:11 Temperature 98.6 F Pulse Rate 79 80 76 Respiratory Rate 21 Blood Pressure 111/68 Pulse Oximetry 96 04/05/18 04:00 04/05/18 05:27 04/05/18 06:28 Temperature Pulse Rate 90 87 74 Respiratory Rate Blood Pressure Pulse Oximetry 04/05/18 07:00 04/05/18 08:00 04/05/18 09:00 Temperature 97.9 F Pulse Rate 74 80 80 Respiratory Rate 17 Blood Pressure 147/78 H Pulse Oximetry 98 GENERAL: A&O x3 SKIN: Warm and dry. sternal incision intact and well approximated, left upper chest wall incision intact with steri strips HEAD: Normocephalic. EYES: No scleral icterus. No injection or drainage. NECK: Supple, trachea midline. No JVD or lymphadenopathy. CARDIOVASCULAR: Regular rate and rhythm without murmurs, gallops, or rubs. RESPIRATORY: Breath sounds equal bilaterally. No accessory muscle use. GASTROINTESTINAL: Abdomen soft, non-tender, nondistended. MUSCULOSKELETAL: No cyanosis, or edema. BACK: Nontender without obvious deformity. No CVA tenderness. Result Diagrams: 03/28/18 10:30 04/02/18 03:30 Telemetry: NSR - Plan (2) Asthma Plan: on nebs, (3) Seizure Plan: pt not on meds at home (5) S/P CABG (coronary artery bypass graft) Plan: ASA, statin , plavix aggressive pulm toileting CV: -continue amiodarone [address] Low following / s/p medtronic ICD placement for dc today instructed for no driving for 4 weeks C at discharge (6) History of CVA (cerebrovascular accident) Plan: CVA 2 Right internal carotid artery occlusion chronic on ASA plavix (9) Postoperative cardiac arrest Plan: on amiodarone s/p EP study today (10) Cocaine abuse Plan: counseled regarding cessation
== END 2018-04-05 11:38 | disposition home health service (06) ==
LOC: PHED 13:49 → PHEDA 17:12 → UNDODISIN 21:00 → PHEDA 22:51 → HCPC 23:13 → HCVI 03-22 18:21 → HCPC 03-30 12:42
PROVIDERS: ADMIT Thoracic Surgery (Cardiothoracic Vascular Surgery); ATTEND Thoracic Surgery (Cardiothoracic Vascular Surgery)